=== PATIENT | female | born 1950 | race Caucasian/White ===

== ENCOUNTER 2016-09-26 10:55 | Emergency (ER) | payer MEDICARE, OTHER ==
[~2016-09-26] VITALS: Ht 170.2 cm; Wt 88.5 kg
[~2016-09-26 10:55] MED LIST: AMLO5TAB2 PO; ASPI-983 PO; ATOR10TA66 PO; ATOR20TA66 PO; ATOR80TA76 PO; CEPH500C PO; CHOL10003 PO; CIPR-225 PO; CLOP75TA28 PO; CLOP75TA69 PO; HYDR25TA4 PO; KCL20TCR PO; LOSA100T28 PO; LOSA50TA36 PO; Losartan Potassium PO; MAGN400C PO; METO50TA2 PO; MTF500T PO; NEBI5TAB8 PO; NFNEB10T PO; NIAC-4 PO; POTA10CA43 PO; UBID200C16 PO; UBID200C31 PO; VIT D
[2016-09-26] MEDS ORDERED: APIX5TAB PO (11:58)
[2016-09-26 12:44] LABS: BASOPHILS % (AUTO) 0 % (0-10); EOSINOPHILS # (AUTO) 0.1 10^3/uL (0.0-0.3); EOSINOPHILS % (AUTO) 1 % (0-10); LYMPHOCYTES # (AUTO) 1.5 X 10^3 (1.0-4.0); LYMPHOCYTES % (AUTO) 16 % (12-44); MEAN CORPUSCULAR HEMOGLOBIN 30 PG (25-34); MEAN CORPUSCULAR HGB CONC 33 G/DL (32-36); MEAN CORPUSCULAR VOLUME 90 FL (80-99); MEAN PLATELET VOLUME 9.6 FL (7.4-10.4); MONOCYTES # (AUTO) 1.1 X 10^3 (0.0-1.0); MONOCYTES % (AUTO) 12 % (0-12); NEUTROPHILS # (AUTO) 6.6 X 10^3 (1.8-7.8); NEUTROPHILS % (AUTO) 72 % (42-75); PLATELET COUNT 320 10^3/uL (130-400); RED BLOOD COUNT 4.55 10^6/uL (4.35-5.85); RED CELL DISTRIBUTION WIDTH 12.7 % (10.0-14.5); WHITE BLOOD COUNT 9.2 10^3/uL (4.3-11.0)
[2016-09-26 12:52] LABS: ANION GAP 10 MMOL/L (5-14); BLOOD UREA NITROGEN 11 MG/DL (7-18); BUN/CREATININE RATIO 13; CALCIUM 9.4 MG/DL (8.5-10.1); CARBON DIOXIDE 23 MMOL/L (21-32); CHLORIDE 105 MMOL/L (98-107); CREATININE SERUM 0.83 MG/DL (0.60-1.30); GFR ESTIMATED > 60; GLUCOSE 103 MG/DL (70-105); POTASSIUM 3.7 MMOL/L (3.6-5.0); SODIUM 138 MMOL/L (135-145)
--- NOTE | 2016-09-26 12:59 | Diagnostic Imaging Report ---
INDICATION: Coronary bypass. Hypotensive. Comparison with 05/29/2016. FINDINGS: Median sternotomy changes are now present. There has been increase in cardiac size. Lungs are well aerated. No evidence of pulmonary edema. No consolidated infiltrates. No pleural effusions. IMPRESSION: Postoperative residue with cardiomegaly. Dictated by: Dictated on workstation # [id number]
[2016-09-26 13:00] LABS: BILIRUBIN,URINE NEGATIVE (NEGATIVE); KETONES,URINE NEGATIVE (NEGATIVE); LEUKOCYTE ESTERASE ,URINE NEGATIVE (NEGATIVE); NITRITE,URINE NEGATIVE (NEGATIVE); PH,URINE 6.5 (5-9); PROTEIN,URINE NEGATIVE (NEGATIVE); UROBILINOGEN,URINE NORMAL (NORMAL)
[2016-09-26 13:00] LABS: TROPONIN I < 0.30 NG/ML (<0.30)
--- NOTE | 2016-09-26 13:09 | ED Cardiac General ---
History of Present Illness General Chief Complaint: Cardiac/General Problems Stated Complaint: LOW BLOOD PRESSURE SOA Nursing Triage Note: PT SENT OVER BY CARDIAC REHAB, STATES HYPOTENSIVE AND ELEVATED HR, PT HAS HAD RECENT CABG, R CAROTID JUL. PT DENIES C/P Source: patient, family Exam Limitations: no limitations History of Present Illness Time seen by provider: 12:40 Initial Comments The patient is a 66-year-old white female who was sent here from cardiac rehabilitation. They apparently noted a blood pressure 90/60 range and a pulse of 110 or more all she was on the treadmill. She states that she was asymptomatic. She takes metoprolol. Her recent history involved a stroke last April with a following rehabilitation. She then had a right carotid endarterectomy and cardiac bypass grafting at [facility] in July. She believes that she has been doing reasonably well. She denied any chest pain. She denies any neurologic symptoms. Timing/Duration: 1-3 hours Prior CP/Workup: cardiac cath, other (stroke and bypass grafting) Associated Systoms: Denies Symptoms Allergies and Home Medications Allergies Coded Allergies: No Known Drug Allergies (Unverified , 05/01/14) Home Medications Amlodipine Besylate 5 Mg Tablet, 5 MG PO DAILY, (Reported) Apixaban 5 Mg Tablet, 5 MG PO BID, (Reported) Aspirin 81 Mg Tablet.dr, 81 MG PO DAILY, (Reported) Atorvastatin Calcium 80 Mg Tablet, 80 MG PO HS, (Reported) Cholecalciferol 1,000 Unit Tablet, 2,000 UNIT PO DAILY, (Reported) Clopidogrel Bisulfate 75 Mg Tablet, 75 MG PO DAILY, (Reported) Losartan Potassium 100 Mg Tablet, 100 MG PO DAILY, (Reported) Metoprolol Tartrate 50 Mg Tablet, 75 MG PO BID, (Reported) TAKES 1 & 1/2 (50MG) TABLET Ubidecarenone 200 Mg Capsule, 200 MG PO DAILY, (Reported) Review of Systems Constitutional: see HPI EENTM: No Symptoms Reported Respiratory: No Symptoms Reported Cardiovascular: No Symptoms Reported Gastrointestinal: No Symptoms Reported Genitourinary: No Symptoms Reported Musculoskeletal: no symptoms reported Skin: no symptoms reported Psychiatric/Neurological: No Symptoms Reported Endocrine: No Symptoms Reported Hematologic/Lymphatic: No Symptoms Reported Past [id number]-Qdkcyn-Fugnuq Hx Patient Social History Alcohol Use: Denies Use Recreational Drug Use: No Type Used: Cigarettes 2nd Hand Smoke Exposure: Yes Recent Foreign Travel: No Contact w/Someone Who Travel: No Recent Infectious Disease Expo: No Recent Hopitalizations: No Immunizations Up To Date Tetanus Booster (TDap): More than 5yrs PED Vaccines UTD: No Date of Pneumonia Vaccine: May 03, 2014 Date of Influenza Vaccine: Mar 25, 2016 Seasonal Allergies Seasonal Allergies: No Surgeries HX Surgeries: Yes ( BREAST BIOSPY (Multiple)) Surgeries: Tonsillectomy Respiratory Hx Respiratory Disorders: No Cardiovascular Hx Cardiac Disorders: Yes Cardiac Disorders: Coronary Artery Disease, Heart Attack, High Cholesterol, Hypertension Neurological Hx Neurological Disorders: No Reproductive System Hx Reproductive Disorders: No Sexually Transmitted Disease: No HIV/AIDS: No Female Reproductive Disorders: Denies Genitourinary Hx Genitourinary Disorders: No Gastrointestinal Hx Gastrointestinal Disorders: No Musculoskeletal Hx Musculoskeletal Disorders: No Endocrine Hx Endocrine Disorders: Yes Endocrine Disorders: Diabetes, Non-Insulin dep HEENT HX ENT Disorders: No Loss of Vision: Denies Hearing Impairment: Bilateral Hearing Aide Cancer Hx Cancer: No Psychosocial Hx Psychiatric Problems: No Integumentary HX Skin/Integumentary Disorder: No Blood Transfusions Hx Blood Disorders: No Adverse Reaction to a Blood Tr: No Family Medical History Significant Family History: Heart Disease, Cancer, Hypertension, Stroke, Other Conditions/Hx Family Medial History: Cardiovascular disease 19 FATHER, Onset:Unknown Completed stroke 19 FATHER, Onset:60 years & older Diabetes mellitus 19 FATHER, Onset:50's - 60 Hypertension 19 FATHER, Onset:Unknown Kidney disease G8 BROTHER, Onset: No Family History of: AIDS Abdominal aortic aneurysm Calvert's disease Alcoholism Alzheimer's disease Aphasia Arthritis Asthma Cancer of mouth Cataracts Colon cancer Congenital disease Congenital heart disease Coronary thrombosis Cystic fibrosis Deafness or hearing loss Dementia Drug abuse Dysphasia Fibrocystic disease of breast Gastroenteritis Glaucoma Headache disorder Hypercholesterolemia Infertility Myocardial infarction Neoplasm Not obtainable due to adoption Osteoporosis Parkinson's disease Prostate cancer Psychosocial problem Respiratory disorder Seizure disorder Severe allergy Thyroid disease Tuberculosis Visual disorder Physical Exam Vital Signs Vital Sign - Last 12Hours 09/26/16 11:20 Temp 98.0 Pulse 98 Resp 18 B/P (MAP) 139/80 Pulse Ox 93 Capillary Refill : Less Than 3 Seconds General Appearance: No Apparent Distress, WD/WN HEENT: Normal ENT Inspection Neck: Full Range of Motion, Normal Inspection, Non Tender Respiratory: Decreased Breath Sounds (distant) Cardiovascular: Regular Rate, Rhythm, No Edema, No Gallop, No JVD, No Murmur, Normal Peripheral Pulses Gastrointestinal: Normal Bowel Sounds, No Organomegaly, No Pulsatile Mass, Non Tender Skin: Normal Color, Warm/Dry Lymphatic: No Adenopathy Progress/Results/Core Measures Results/Orders Lab Results Laboratory Tests Test 09/26/16 11:25 09/26/16 12:52 Range/Units White Blood Count 9.2 4.3-11.0 10^3/uL Red Blood Count 4.55 4.35-5.85 10^6/uL Hemoglobin 13.7 11.5-16.0 G/DL Hematocrit 41 35-52 % Mean Corpuscular Volume 90 80-99 FL Mean Corpuscular Hemoglobin 30 25-34 PG Mean Corpuscular Hemoglobin Concent 33 32-36 G/DL Red Cell Distribution Width 12.7 10.0-14.5 % Platelet Count 320 130-400 10^3/uL Mean Platelet Volume 9.6 7.4-10.4 FL Neutrophils (%) (Auto) 72 42-75 % Lymphocytes (%) (Auto) 16 12-44 % Monocytes (%) (Auto) 12 0-12 % Eosinophils (%) (Auto) 1 0-10 % Basophils (%) (Auto) 0 0-10 % Neutrophils # (Auto) 6.6 1.8-7.8 X 10^3 Lymphocytes # (Auto) 1.5 1.0-4.0 X 10^3 Monocytes # (Auto) 1.1 H 0.0-1.0 X 10^3 Eosinophils # (Auto) 0.1 0.0-0.3 10^3/uL Basophils # (Auto) 0.0 0.0-0.1 10^3/uL Sodium Level 138 135-145 MMOL/L Potassium Level 3.7 3.6-5.0 MMOL/L Chloride Level 105 98-107 MMOL/L Carbon Dioxide Level 23 21-32 MMOL/L Anion Gap 10 5-14 MMOL/L Blood Urea Nitrogen 11 7-18 MG/DL Creatinine 0.83 0.60-1.30 MG/DL Estimat Glomerular Filtration Rate > 60 BUN/Creatinine Ratio 13 Glucose Level 103 70-105 MG/DL Calcium Level 9.4 8.5-10.1 MG/DL Troponin I < 0.30 <0.30 NG/ML Urine Color YELLOW Urine Clarity CLEAR Urine pH 6.5 5-9 Urine Specific [place] 1.005 L 1.016-1.022 Urine Protein NEGATIVE NEGATIVE Urine Glucose (UA) NEGATIVE NEGATIVE Urine Ketones NEGATIVE NEGATIVE Urine Nitrite NEGATIVE NEGATIVE Urine Bilirubin NEGATIVE NEGATIVE Urine Urobilinogen NORMAL NORMAL MG/DL Urine Leukocyte Esterase NEGATIVE NEGATIVE Urine RBC (Auto) NEGATIVE NEGATIVE Urine RBC NONE /HPF Urine WBC RARE /HPF Urine Squamous Epithelial Cells 2-5 /HPF Urine Crystals NONE /LPF Urine Bacteria NEGATIVE /HPF Urine Casts NONE /LPF Urine Mucus NEGATIVE /LPF Urine Culture Indicated NO Vital Signs/I&O Vital Sign - Last 12Hours 09/26/16 11:20 Temp 98.0 Pulse 98 Resp 18 B/P (MAP) 139/80 Pulse Ox 93 Blood Pressure Mean: 99 Departure Communication Progress Notes 1358 patient remains stable. She is asymptomatic. The pressure has tended to run in the 90+ over 60+ range while at rest and the pulse less than 100. Discussed these findings with Dr. Fulton who is her [place] physician. We agreed that barring orthostatic hypotension she can be dismissed. Impression Impression: Primary Impression: relative hypotension/suspect beta griselda Disposition: 01 HOME, SELF-CARE Condition: Stable/Unchanged Departure-Patient Inst. Decision time for Depature: 13:57 Referrals: ARTEM FULTON MD (PCP/Family) Primary Care Physician Add. Discharge Instructions: All discharge instructions reviewed with patient and/or family. Voiced understanding. Continue medications as at present. Observe for lightheadedness when changing positions. If further problems contact WILBERT Infante MD Sep 26, 2016 13:09
[2016-09-26 13:27] LABS: WBC,URINE RARE /HPF
[2016-09-26 14:33] VITALS: BP 89/64
== END 2016-09-26 14:33 | disposition home or self-care (01) ==
LOC: EDUNIT# 10:55 → ER 10:57
DX: R03.1 Nonspecific low blood-pressure reading (principal); E11.9 Type 2 diabetes mellitus without complications; I10 Essential (primary) hypertension; Z79.01 Long term (current) use of anticoagulants; Z79.02 Long term (current) use of antithrombotics/antiplatelets; Z79.899 Other long term (current) drug therapy; Z95.1 Presence of aortocoronary bypass graft; Z86.73 Personal history of transient ischemic attack (TIA), and cerebral infarction without residual deficits
CPT/HCPCS: 36415; 71010; 80048; 81000; 84484; 85025; 93005

== ENCOUNTER → 2016-11-25 | Outpatient (CLI) | payer MEDICARE, OTHER ==
[~2016-11-25] MED LIST changes: +APIX5TAB PO
--- NOTE | 2016-11-25 15:48 | Diagnostic Imaging Report ---
PROCEDURE: US Bilateral lower extremity arterial. TECHNIQUE: Multiple real-time grayscale images are obtained through both lower extremity arterial systems with color Doppler imaging and color Doppler spectral analysis. INDICATION: Tingling in the feet. FINDINGS: There is atherosclerotic plaque seen in the femoropopliteal segments on grayscale images. LEFT LOWER EXTREMITY: Monophasic waveforms are seen in the common femoral artery. The profunda femoris is patent. The SFA proximally demonstrates diminished monophasic flow and is occluded in its mid segment for approximately 18 cm. There is recanalization of the distal SFA with diminished monophasic flow and a velocity of 44 cm/s. The popliteal artery is patent with diminished monophasic flow and a velocity of 25 cm/s. The left posterior tibial artery is occluded at its mid segment to the level of the foot. The dorsalis pedis artery is patent with monophasic flow and a velocity of 31 cm/s. RIGHT LOWER EXTREMITY: There is plaque in the femoropopliteal segments seen. The common femoral artery demonstrates normal triphasic flow. The profunda is patent. The SFA is also patent with triphasic waveforms and normal velocities. The popliteal artery demonstrates a minimally diminished velocity of 44 cm/s with preserved triphasic waveforms. The posterior tibial artery is occluded proximally with reconstitution at its distal aspect and associated velocity of 55 cm/s. The dorsalis pedis demonstrates markedly diminished flow with a velocity of 9 cm/s and monophasic waveforms. IMPRESSION: Severe arterial disease. There are occlusions of the left SFA, left posterior tibial, and right posterior tibial arteries. There is evidence of significant disease as well in the right anterior tibial artery. Dictated by: Dictated on workstation # [id number]
== END ==
LOC: RAD 12:46
PROVIDERS: ATTEND Family Medicine
DX: I77.1 Stricture of artery (principal); I25.10 Atherosclerotic heart disease of native coronary artery without angina pectoris; I10 Essential (primary) hypertension; Z72.0 Tobacco use
CPT/HCPCS: 93925

== ENCOUNTER 2016-11-28 10:43 | Outpatient (RCR) | payer MEDICARE, OTHER | END 2016-12-09 | disposition home or self-care (01) | LOC: CR 10:43 | PROVIDERS: ATTEND Internal Medicine Interventional Cardiology | DX: Z48.812 Encounter for surgical aftercare following surgery on the circulatory system (principal); Z95.1 Presence of aortocoronary bypass graft | CPT/HCPCS: 93798 ==

== ENCOUNTER 2017-01-19 11:21 | Outpatient (RCR) | payer MEDICARE, OTHER | END 2017-01-20 11:30 | disposition home or self-care (01) | LOC: CR 11:21 | PROVIDERS: ATTEND Internal Medicine Interventional Cardiology | DX: Z48.812 Encounter for surgical aftercare following surgery on the circulatory system (principal); Z95.1 Presence of aortocoronary bypass graft | CPT/HCPCS: 93798 ==

== ENCOUNTER → 2017-03-30 | Outpatient (CLI) | payer MEDICARE, OTHER | LOC: CARD 10:36 | PROVIDERS: ATTEND Internal Medicine Interventional Cardiology | DX: R06.02 Shortness of breath (principal); I25.10 Atherosclerotic heart disease of native coronary artery without angina pectoris; I10 Essential (primary) hypertension | CPT/HCPCS: 93306 ==

== ENCOUNTER → 2017-04-30 | Outpatient (CLI) | payer MEDICARE, OTHER ==
--- NOTE | 2017-05-01 11:40 | Diagnostic Imaging Report ---
Bilateral screening mammogram 2D views with tomosynthesis The current study was also evaluated with a Computer Aided Detection (CAD) system. INDICATION: Screening. No current complaints stated on the questionnaire. COMPARISON: 06/05/2015. FINDINGS: The breasts are composed of scattered fibroglandular densities. There are scattered benign appearing calcification seen. Allowing for technique and positional differences, no suspicious change is seen. IMPRESSION: No significant change. ACR BI-RADS Category 2: Benign findings. Result letter will be mailed to the patient. Note: At least 10% of breast cancer is not imaged by mammography. Dictated by: Dictated on workstation # [id number]
== END ==
LOC: RAD 09:55
PROVIDERS: ATTEND Family Medicine
DX: Z12.31 Encounter for screening mammogram for malignant neoplasm of breast (principal)
CPT/HCPCS: 77067

== ENCOUNTER → 2017-06-29 | Outpatient (CLI) | payer MEDICARE, OTHER ==
[~2017-06-29] MED LIST changes: +METO50TA15 PO; -METO50TA2 PO
[2017-06-29 10:29] LABS: HEMOGLOBIN 13.9 G/DL (11.5-16.0); MEAN PLATELET VOLUME 8.6 FL (7.4-10.4); RED BLOOD COUNT 4.55 10^6/uL (4.35-5.85); RED CELL DISTRIBUTION WIDTH 13.2 % (10.0-14.5); WHITE BLOOD COUNT 5.1 10^3/uL (4.3-11.0)
[2017-06-29 10:34] LABS: BILIRUBIN,URINE NEGATIVE (NEGATIVE); CLARITY,URINE CLEAR; COLOR,URINE YELLOW; GLUCOSE, URINE (UA) NEGATIVE (NEGATIVE); KETONES,URINE NEGATIVE (NEGATIVE); LEUKOCYTE ESTERASE ,URINE 2+ (NEGATIVE); NITRITE,URINE NEGATIVE (NEGATIVE); PH,URINE 5 (5-9); PROTEIN,URINE NEGATIVE (NEGATIVE); UROBILINOGEN,URINE NORMAL (NORMAL)
[2017-06-29 10:43] LABS: BACTERIA,URINE TRACE /HPF
[2017-06-29 10:55] LABS: ALANINE AMINOTRANSFERASE 18 U/L (0-55); ALBUMIN 3.9 GM/DL (3.2-4.5); ALKALINE PHOSPHATASE 136 U/L (40-136); BILIRUBIN,TOTAL 0.5 MG/DL (0.1-1.0); BUN/CREATININE RATIO 18; CALCIUM 9.2 MG/DL (8.5-10.1); CARBON DIOXIDE 25 MMOL/L (21-32); CHLORIDE 109 MMOL/L (98-107); GFR ESTIMATED > 60; GLUCOSE 81 MG/DL (70-105); POTASSIUM 4.3 MMOL/L (3.6-5.0); SODIUM 142 MMOL/L (135-145); TOTAL PROTEIN 6.8 GM/DL (6.4-8.2)
--- NOTE | 2017-06-29 11:03 | Diagnostic Imaging Report ---
INDICATION: Preop for peripheral vascular disease. Time of exam: 10:59 AM Correlation is made with prior study from 09/26/2016. The heart size is normal. There are changes of median sternotomy. The lungs are clear. No infiltrates are detected. No effusion or pneumothorax is identified. IMPRESSION: No acute cardiopulmonary process is detected. Dictated by: Dictated on workstation # [id number]
== END ==
LOC: CARD 10:00
PROVIDERS: ATTEND Thoracic Surgery (Cardiothoracic Vascular Surgery)
DX: Z01.811 Encounter for preprocedural respiratory examination (principal); Z01.812 Encounter for preprocedural laboratory examination; I70.213 Atherosclerosis of native arteries of extremities with intermittent claudication, bilateral legs; R82.99 Other abnormal findings in urine
CPT/HCPCS: 36415; 71046; 80053; 81000; 85027; 87088

== ENCOUNTER → 2017-07-06 | Outpatient (CLI) | payer MEDICARE, OTHER ==
[2017-07-06 09:53] LABS: BILIRUBIN,URINE NEGATIVE (NEGATIVE); CLARITY,URINE CLEAR; COLOR,URINE YELLOW; GLUCOSE, URINE (UA) NEGATIVE (NEGATIVE); KETONES,URINE NEGATIVE (NEGATIVE); LEUKOCYTE ESTERASE ,URINE NEGATIVE (NEGATIVE); NITRITE,URINE NEGATIVE (NEGATIVE); PH,URINE 6 (5-9); PROTEIN,URINE NEGATIVE (NEGATIVE); UROBILINOGEN,URINE NORMAL (NORMAL)
[2017-07-06 10:01] LABS: BACTERIA,URINE NEGATIVE /HPF; SQUAMOUS EPITHELIAL CELL,UR 0-2 /HPF
== END ==
LOC: LAB 09:35
PROVIDERS: ATTEND Thoracic Surgery (Cardiothoracic Vascular Surgery)
DX: Z01.810 Encounter for preprocedural cardiovascular examination (principal); Z01.818 Encounter for other preprocedural examination; N39.0 Urinary tract infection, site not specified
CPT/HCPCS: 81000

== ENCOUNTER 2017-10-05 15:12 | Outpatient (RCR) | payer MEDICARE, OTHER | END 2017-10-07 | disposition home or self-care (01) | LOC: CR3 15:12 | PROVIDERS: ATTEND Internal Medicine Interventional Cardiology | DX: Z29.8 Encounter for other specified prophylactic measures (principal) ==

== ENCOUNTER → 2017-11-11 | Outpatient (RCR) | payer MEDICARE, OTHER | END | disposition home or self-care (01) | LOC: CR3 10-12 15:00 | PROVIDERS: ATTEND Internal Medicine Interventional Cardiology | DX: Z29.8 Encounter for other specified prophylactic measures (principal) ==

== ENCOUNTER → 2017-11-30 | Outpatient (CLI) | payer MEDICARE, OTHER ==
[~2017-11-30] MED LIST changes: +CALC-823 PO; +CHOL200014 PO; +DOCU-143 PO; +FERR325T5 PO; +GLIM2TAB PO; +METO-333 PO; +OLME40TA18 PO; +RIVA20TA PO
--- NOTE | 2017-11-30 09:27 | Diagnostic Imaging Report ---
PROCEDURE: US Thyroid. TECHNIQUE: Multiple real-time grayscale images were obtained of the thyroid in various projections. INDICATION: Thyroid nodule. COMPARISON: Comparison is made with prior thyroid ultrasound from 05/02/2014. FINDINGS: Right lobe of the thyroid measures 4.7 x 2.2 x 1.7 cm and the left lobe measures 4.3 x 2.7 x 2.9 cm. Multiple nodules are again identified bilaterally. Dominant mixed solid and cystic mass left lobe of thyroid is again seen measuring 2.6 x 2.4 x 2.7 cm. This was previously biopsied with a benign result. This measured previously 1.9 x 2.4 x 1.6 cm. A nodule in the mid upper right lobe measures 1.4 x 1.1 x 1.2 cm. This was approximately 8 mm in diameter on prior exam. A left lower pole thyroid nodule measures 1.4 x 0.8 x 1.1 cm and the nodule lower pole right lobe is approximately 8 mm in diameter. IMPRESSION: Bilateral thyroid nodules. The dominant solid nodules in each lobe of the thyroid have increased since the prior thyroid ultrasound from 05/02/2014. Dictated by: Dictated on workstation # [id number]
== END ==
LOC: RAD 08:20
PROVIDERS: ATTEND Nurse Practitioner Family
DX: E04.2 Nontoxic multinodular goiter (principal)
CPT/HCPCS: 76536

== ENCOUNTER 2017-12-11 17:25 | Outpatient (RCR) | payer MEDICARE, OTHER ==
[~2017-12-11 17:25] MED LIST changes: -CALC-823 PO; -CHOL200014 PO; -DOCU-143 PO; -FERR325T5 PO; -GLIM2TAB PO; -METO-333 PO; -OLME40TA18 PO; -RIVA20TA PO
== END 2017-12-13 | disposition home or self-care (01) ==
LOC: CR3 17:25
PROVIDERS: ATTEND Family Medicine
DX: Z29.8 Encounter for other specified prophylactic measures (principal)

== ENCOUNTER 2018-01-12 05:49 | Outpatient (CLI) | payer MEDICARE, OTHER ==
[~2018-01-12] VITALS: Ht 170.2 cm; Wt 88.5 kg
[2018-01-12] MEDS ORDERED: RIVA20TA PO (16:11)
[2018-01-12] MEDS ORDERED: CHOL200014 PO (16:16)
[2018-01-12] MEDS ORDERED: DOCU-143 PO (16:16)
[2018-01-12] MEDS ORDERED: METO-333 PO (16:16)
[2018-01-12] MEDS ORDERED: OLME40TA18 PO (16:16)
[2018-01-12] MEDS ORDERED: CALC-823 PO (16:26)
[2018-01-12] MEDS ORDERED: FERR325T5 PO (16:26)
[2018-01-12] MEDS ORDERED: GLIM2TAB PO (16:26)
== END 2018-01-12 16:32 | disposition home or self-care (01) ==
LOC: PREOP 05:49
PROVIDERS: ATTEND Surgery
DX: Z01.818 Encounter for other preprocedural examination (principal)

== ENCOUNTER 2018-03-05 10:23 | Outpatient (CLI) | payer MEDICARE, OTHER ==
[~2018-03-05] VITALS: Ht 170.2 cm; Wt 97.3 kg
[~2018-03-05 10:23] MED LIST changes: +ACHD5005 PO; -AMLO5TAB2 PO; +AMLO5TAB7 PO; +CALC-823 PO; +CHOL200085 PO; +DOCU-143 PO; +FERR325T5 PO; +GLIM2TAB PO; +LEVO100T7 PO; -LOSA100T28 PO; +LOSA100T8 PO; -LOSA50TA36 PO; +LOSA50TA7 PO; +METO-333 PO; +OLME40TA18 PO; +ONDA4TAB8 SL; +RIVA20TA PO; +ROSU20TA31 PO
== END 2018-03-05 10:32 | disposition home or self-care (01) ==
LOC: PREOP 10:23
PROVIDERS: ATTEND Surgery
DX: Z01.818 Encounter for other preprocedural examination (principal)

== ENCOUNTER 2018-03-08 10:12 | Day surgery (SDC) | payer MEDICARE, OTHER ==
[~2018-03-08] VITALS: Ht 170.2 cm; Wt 97.3 kg
[2018-03-08 10:25] VITALS: BP 159/86
--- OUTSIDE RECORDS SUMMARY | 2018-03-08 10:43 | XMS REPORT | Continuity of Care Document ---
Author Author [facility] Organization [facility] Address Unknown Phone Unavailable Allergies Active Description Code Type Severity Reaction Onset Reported/Identified Relationship to Patient Clinical Status Yes No Known Drug Allergies [id number] Drug Allergy Unknown N/A 05/01/2014 Medications There is no data. Problems Date Dx Coded Attending Type Code Diagnosis Diagnosed By 04/30/1129 Jenea HARGROVE MD Ot Z48.812 ENCNTR FOR SURGICAL AFTCR FOLLOWING SURG 04/30/1129 Jenae HARGROVE MD Ot Z95.1 PRESENCE OF AORTOCORONARY BYPASS GRAFT 05/01/2014 Ot 611.72 05/01/2014 Ot V72.81 05/01/2014 Ot 793.80 05/01/2014 Ot 793.81 05/01/2014 Ot 793.89 05/01/2014 Ot 610.8 05/01/2014 Ot 611.72 05/01/2014 Ot V15.89 05/01/2014 Ot 787.91 05/01/2014 Ot 610.9 05/01/2014 Ot 793.80 05/01/2014 Ot V76.12 05/01/2014 Ot 610.0 05/01/2014 Ot 793.80 05/01/2014 Ot 610.0 05/01/2014 Ot 793.80 05/01/2014 JULIANO LUCERO [employer] Ot V76.12 05/01/2014 JULIANO LUCERO [employer] Ot 793.89 05/01/2014 JULIANO LUCERO [employer] Ot 793.89 05/03/2014 JEFF JOYNER, ARTEM Mckeon Ot 041.49 05/03/2014 JEFF JOYNER, ARTEM Mckeon Ot 250.00 05/03/2014 JEFF JOYNER, ARTEM Mckeon Ot 272.0 05/03/2014 JEFF JOYNER, ARTEM Mckeon Ot 275.2 05/03/2014 ARTEM AGUILAR MD Ot 276.8 05/03/2014 JEFF JOYNER, ARTEM A Ot 305.1 05/03/2014 JEFF JOYNER, ARTEM A Ot 401.9 05/03/2014 JEFF JOYNER, ARTEM A Ot 599.0 05/03/2014 JEFF JOYNER, ARTEM A Ot 733.90 05/03/2014 JEFF JOYNER, ARTEM A Ot 041.49 05/03/2014 JEFF JOYNER, ARTEM A Ot 250.00 05/03/2014 JEFF JOYNER, ARTEM A Ot 272.0 05/03/2014 JEFF JOYNER, ARTEM A Ot 275.2 05/03/2014 JEFF JOYNER, ARTEM A Ot 276.8 05/03/2014 JEFF JOYNER, ARTEM A Ot 305.1 05/03/2014 JEFF JOYNER, ARTEM A Ot 401.9 05/03/2014 JEFF JOYNER, ARTEM A Ot 599.0 05/03/2014 JEFF JOYNER, ARTEM A Ot 733.90 05/04/2014 JEFF JOYNER, ARTEM A Ot 041.49 05/04/2014 JEFF JOYNER, ARTEM A Ot 250.00 05/04/2014 JEFF JOYNER, ARTEM A Ot 272.0 05/04/2014 JEFF JOYNER, ARTEM A Ot 275.2 05/04/2014 JEFF JOYNER, ARTEM A Ot 276.8 05/04/2014 JEFF JOYNER, ARTEM A Ot 305.1 05/04/2014 JEFF JOYNER, ARTEM A Ot 401.9 05/04/2014 JEFF JOYNER, ARTEM A Ot 599.0 05/04/2014 JEFF JOYNER, ARTEM A Ot 733.90 05/05/2014 JEFF JOYNER, ARTEM A Ot 041.49 05/05/2014 JEFF JOYNER, ARTEM A Ot 250.00 05/05/2014 JEFF JOYNER, ARTEM A Ot 272.0 05/05/2014 JEFF JOYNER, ARTEM A Ot 275.2 05/05/2014 JEFF JOYNER, ARTEM A Ot 276.8 05/05/2014 JEFF JOYNER, ARTEM A Ot 305.1 05/05/2014 JEFF JOYNER, ARTEM A Ot 401.9 05/05/2014 JEFF JOYNER, ARTEM A Ot 599.0 05/05/2014 JEFF JOYNER, ARTEM A Ot 733.90 05/05/2014 Ot 611.72 05/05/2014 Ot V72.81 05/05/2014 Ot 793.80 05/05/2014 Ot 793.81 05/05/2014 Ot 793.89 05/05/2014 Ot 610.8 05/05/2014 Ot 611.72 05/05/2014 Ot V15.89 05/05/2014 Ot 787.91 05/05/2014 Ot 610.9 05/05/2014 Ot 793.80 05/05/2014 Ot V76.12 05/05/2014 Ot 610.0 05/05/2014 Ot 793.80 05/05/2014 Ot 610.0 05/05/2014 Ot 793.80 05/05/2014 JULIANO LUCERO [employer] Ot V76.12 05/05/2014 JULIANO LUCERO [employer] Ot 793.89 05/05/2014 JULIANO LUCERO [employer] Ot 793.89 05/05/2014 JEFF JOYNER, ARTEM Mckeon Ot 041.49 05/05/2014 JEFF JOYNER, ARTEM A Ot 250.00 05/05/2014 JEFF JOYNER, ARTEM A Ot 272.0 05/05/2014 JEFF JOYNER, ARTEM A Ot 275.2 05/05/2014 JEFF JOYNER, ARTEM A Ot 276.8 05/05/2014 JEFF JOYNER, ARTEM A Ot 305.1 05/05/2014 JEFF JOYNER, ARTEM A Ot 401.9 05/05/2014 JEFF JOYNER, ARTEM A Ot 599.0 05/05/2014 JEFF JOYNER, ARTEM A Ot 733.90 05/05/2014 JEFF JOYNER, ARTEM Mckeon Ot 041.49 05/05/2014 JEFF JOYNER, ARTEM A Ot 250.00 05/05/2014 JEFF JOYNER, ARTEM A Ot 272.0 05/05/2014 JEFF JOYNER, ARTEM A Ot 275.2 05/05/2014 JEFF JOYNER, ARTEM A Ot 276.8 05/05/2014 JEFF JOYNER, ARTEM A Ot 305.1 05/05/2014 JEFF JOYNER, ARTEM A Ot 401.9 05/05/2014 JEFF JOYNER, ARTEM A Ot 599.0 05/05/2014 JEFF JOYNER, ARTEM A Ot 733.90 05/05/2014 JEFF JOYNER, ARTEM Mckeon Ot 041.49 05/05/2014 JEFF JOYNER, ARTEM Mckeon Ot 250.00 05/05/2014 JEFF JOYNER, ARTEM Mckeon Ot 272.0 05/05/2014 JEFF JOYNER, ARTEM Mcekon Ot 275.2 05/05/2014 ARTEM AGUILAR MD Ot 276.8 05/05/2014 JEFF JOYNER, ARTEM Mckeon Ot 305.1 05/05/2014 ARTEM AGUILAR MD Ot 401.9 05/05/2014 ARTEM AGUILAR MD Ot 599.0 05/05/2014 JEFF JOYNER, ARTEM Mckeon Ot 733.90 05/05/2014 ARTEM AGUILAR MD Ot 041.49 05/05/2014 ARTEM AGUILAR MD Ot 250.00 05/05/2014 ARTEM AGUILAR MD Ot 272.0 05/05/2014 ARTEM AGUILAR MD Ot 275.2 05/05/2014 ARTEM AGUILAR MD Ot 276.8 05/05/2014 ARTEM AGUILAR MD Ot 305.1 05/05/2014 ARTEM AGUILAR MD Ot 401.9 05/05/2014 ARTEM AGUILAR MD Ot 599.0 05/05/2014 ARTEM AGUILAR MD Ot 733.90 05/05/2014 ARTEM AGUILAR MD Ot 041.49 OTHER AND UNSPECIFIED ESCHERICHIA COLI [ 05/05/2014 ARTEM AGUILAR MD Ot 241.1 NONTOX MULTINODUL GOITER 05/05/2014 ARTEM AGUILAR MD Ot 250.00 DIAB ACACIA WO COMPL, TYPE II OR UNSPEC TY 05/05/2014 ARTEM AGUILAR MD Ot 272.0 PURE HYPERCHOLESTEROLEM 05/05/2014 ARTEM AGUILAR MD Ot 275.2 DIS MAGNESIUM METABOLISM 05/05/2014 ARTEM AGUILAR MD Ot 276.8 HYPOPOTASSEMIA 05/05/2014 ARTEM AGUILAR MD Ot 305.1 TOBACCO USE DISORDER 05/05/2014 ARTEM AGUILAR MD Ot 401.9 HYPERTENSION NOS 05/05/2014 ARTEM AGUILAR MD Ot 599.0 URIN TRACT INFECTION NOS 05/05/2014 ARTEM AGUILAR MD Ot 728.85 SPASM OF MUSCLE 05/05/2014 JEFF JOYNER, ARTEM Mckeon Ot 733.90 BONE CARTILAGE DIS NOS 05/05/2014 JEFF JOYNER, ARTEM Mckeon Ot 787.91 DIARRHEA 05/08/2014 JULIANO LUCERO [employer] Ot 793.89 05/11/2014 Ot 611.72 05/11/2014 Ot V72.81 05/11/2014 Ot 793.80 05/11/2014 Ot 793.81 05/11/2014 Ot 793.89 05/11/2014 Ot 610.8 05/11/2014 Ot 611.72 05/11/2014 Ot V15.89 05/11/2014 Ot 787.91 05/11/2014 Ot 610.9 05/11/2014 Ot 793.80 05/11/2014 Ot V76.12 05/11/2014 Ot 610.0 05/11/2014 Ot 793.80 05/11/2014 Ot 610.0 05/11/2014 Ot 793.80 05/11/2014 JULIANO LUCERO [employer] Ot V76.12 05/11/2014 JULIANO LUCERO [facility] Ot 793.89 05/11/2014 JULIANO LUCERO [facility] Ot 793.89 05/11/2014 JEFF JOYNER, ARTEM Mckeon Ot 242.90 05/11/2014 JEFF JOYNER, ARTEM Mckeon Ot 250.00 05/11/2014 ARTEM AGUILAR MD Ot 275.2 05/11/2014 ARTEM AGUILAR MD Ot 276.8 05/11/2014 ARTEM AGUILAR MD Ot 599.0 05/11/2014 ARTEM AGUILAR MD Ot 728.88 05/11/2014 WILBERT MERIDA MD Ot 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 05/11/2014 IWLBERT MERIDA MD Ot 722.4 CERVICAL DISC DEGEN 05/11/2014 WILBERT MERIDA MD Ot 782.0 SKIN SENSATION DISTURB 06/06/2014 Ot 611.72 06/06/2014 Ot V72.81 06/06/2014 Ot 793.80 06/06/2014 Ot 793.81 06/06/2014 Ot 793.89 06/06/2014 Ot 610.8 06/06/2014 Ot 611.72 06/06/2014 Ot V15.89 06/06/2014 Ot 787.91 06/06/2014 Ot 610.9 06/06/2014 Ot 793.80 06/06/2014 Ot V76.12 06/06/2014 Ot 610.0 06/06/2014 Ot 793.80 06/06/2014 Ot 610.0 06/06/2014 Ot 793.80 06/06/2014 JULIANO LUCERO [employer] Ot V76.12 06/06/2014 JULIANO LUCERO [employer] Ot 793.89 06/06/2014 JULIANO LUCERO [employer] Ot 793.89 06/06/2014 JEFF JOYNER, ARTEM A Ot 242.90 06/06/2014 JEFF JOYNER, ARTEM A Ot 250.00 06/06/2014 JEFF JOYNER, ARTEM A Ot 275.2 06/06/2014 JEFF JOYNER, ARTEM A Ot 276.8 06/06/2014 JEFF JOYNER, ARTEM Mckeon Ot 599.0 06/06/2014 JEFF JOYNER, ARTEM Mckeon Ot 728.88 10/12/2014 Ot 793.80 10/12/2014 Ot 793.81 10/12/2014 Ot 793.89 10/12/2014 Ot 610.8 10/12/2014 Ot 611.72 10/12/2014 Ot V15.89 10/12/2014 Ot 787.91 10/12/2014 Ot 610.9 10/12/2014 Ot 793.80 10/12/2014 Ot V76.12 10/12/2014 Ot 610.0 10/12/2014 Ot 793.80 10/12/2014 Ot 610.0 10/12/2014 Ot 793.80 10/12/2014 JULIANO LUCERO [employer] Ot V76.12 10/12/2014 JULIANO LUCERO [employer] Ot 793.89 10/12/2014 JULIANO LUCERO [employer] Ot 793.89 10/12/2014 JEFF JOYNER, ARTEM A Ot 242.90 10/12/2014 JEFF JOYNER, ARTEM A Ot 250.00 10/12/2014 JEFF JOYNER, ARTEM A Ot 275.2 10/12/2014 JEFF JOYNER, ARTEM A Ot 276.8 10/12/2014 JEFF JOYNER, ARTEM Mckeon Ot 599.0 10/12/2014 JEFF JOYNER, ARTEM A Ot 728.88 10/12/2014 JULIANO LUCERO [employer] Ot 241.0 10/13/2014 JEFF JOYNER, ARTEM Mckeon Ot 733.90 10/14/2014 JEFF JOYNER, ARTEM Mckeon Ot 733.90 11/26/2014 JEFF JOYNER, ARTEM Mckeon Ot 733.90 06/05/2015 Ot 793.81 06/05/2015 Ot 793.89 06/05/2015 Ot 610.8 06/05/2015 Ot 611.72 06/05/2015 Ot V15.89 06/05/2015 Ot 787.91 06/05/2015 Ot 610.9 06/05/2015 Ot 793.80 06/05/2015 Ot V76.12 06/05/2015 Ot 610.0 06/05/2015 Ot 793.80 06/05/2015 Ot 610.0 06/05/2015 Ot 793.80 06/05/2015 JULIANO LUCERO [employer] Ot V76.12 06/05/2015 JULIANO LUCERO [employer] Ot 793.89 06/05/2015 JULIANO LUCERO [employer] Ot 793.89 06/05/2015 JEFF JOYNER, ARTEM A Ot 242.90 06/05/2015 JEFF JOYNER, ARTEM A Ot 250.00 06/05/2015 JEFF JOYNER, ARTEM A Ot 275.2 06/05/2015 JEFF JOYNER, ARTEM A Ot 276.8 06/05/2015 JEFF JOYNER, ARTEM A Ot 599.0 06/05/2015 JEFF JOYNER, ARTEM A Ot 728.88 06/05/2015 JULIANO LUCERO [employer] Ot 241.0 06/05/2015 JEFF JOYNER, ARTEM A Ot 733.90 06/05/2015 JEFF JOYNER, ARTEM A Ot 203.00 06/05/2015 JEFF JOYNER, ARTEM A Ot 733.90 05/04/2016 Ot 793.89 OTH (ABN) FINDINGS ON RADIOLOGICAL EXAMI 05/04/2016 Ot 610.8 BENIGN MAMM DYSPLAS NEC 05/04/2016 Ot 611.72 LUMP OR MASS IN BREAST 05/04/2016 Ot V15.89 HX-HEALTH HAZARDS NEC 05/04/2016 Ot 787.91 DIARRHEA 05/04/2016 Ot 610.9 BENIGN MAMM DYSPLAS NOS 05/04/2016 Ot 793.80 UNSPEC ABNORMAL MAMMOGRAM 05/04/2016 Ot V76.12 OTH SCREEN MAMMO-MALIGN NEOPLASM OF OLIVIA 05/04/2016 Ot 610.0 SOLITARY CYST OF BREAST 05/04/2016 Ot 793.80 UNSPEC ABNORMAL MAMMOGRAM 05/04/2016 Ot 610.0 SOLITARY CYST OF BREAST 05/04/2016 Ot 793.80 UNSPEC ABNORMAL MAMMOGRAM 05/04/2016 JULIANO LUCERO [facility] Ot V76.12 OTH SCREEN MAMMO-MALIGN NEOPLASM OF OLIVIA 05/04/2016 JULIANO LUCERO [facility] Ot 793.89 OTH (ABN) FINDINGS ON RADIOLOGICAL EXAMI 05/04/2016 JULIANO LUCERO [facility] Ot 793.89 OTH (ABN) FINDINGS ON RADIOLOGICAL EXAMI 05/04/2016 ARTEM AGUILAR MD Ot 242.90 THYROTOX NOS NO CRISIS 05/04/2016 ARTEM AGUILAR MD Ot 250.00 DIAB ACACIA WO COMPL, TYPE II OR UNSPEC TY 05/04/2016 ARTEM AGUILAR MD Ot 275.2 DIS MAGNESIUM METABOLISM 05/04/2016 ARTEM AGUILAR MD Ot 276.8 HYPOPOTASSEMIA 05/04/2016 ARTEM AGUILAR MD Ot 599.0 URIN TRACT INFECTION NOS 05/04/2016 ARTEM AGUILAR MD Ot 728.88 RHABDOMYOLYSIS 05/04/2016 JULIANO LUCEROP Ot 241.0 NONTOX UNINODULAR GOITER 05/04/2016 ARTEM AGUILAR MD Ot 733.90 BONE CARTILAGE DIS NOS 05/04/2016 ARTEM AGUILAR MD Ot 203.00 MULTIPLE MYELOMA, W/O MENTION OF HAVING 05/04/2016 ARTEM AGUILAR MD Ot 733.90 BONE CARTILAGE DIS NOS 05/04/2016 ARTEM AGUILAR MD Ot Z12.31 ENCNTR SCREEN MAMMOGRAM FOR MALIGNANT NE 05/04/2016 Ot 793.89 OTH (ABN) FINDINGS ON RADIOLOGICAL EXAMI 05/04/2016 Ot 610.8 BENIGN MAMM DYSPLAS NEC 05/04/2016 Ot 611.72 LUMP OR MASS IN BREAST 05/04/2016 Ot V15.89 HX-HEALTH HAZARDS NEC 05/04/2016 Ot 787.91 DIARRHEA 05/04/2016 Ot 610.9 BENIGN MAMM DYSPLAS NOS 05/04/2016 Ot 793.80 UNSPEC ABNORMAL MAMMOGRAM 05/04/2016 Ot V76.12 OTH SCREEN MAMMO-MALIGN NEOPLASM OF OLIVIA 05/04/2016 Ot 610.0 SOLITARY CYST OF BREAST 05/04/2016 Ot 793.80 UNSPEC ABNORMAL MAMMOGRAM 05/04/2016 Ot 610.0 SOLITARY CYST OF BREAST 05/04/2016 Ot 793.80 UNSPEC ABNORMAL MAMMOGRAM 05/04/2016 JULIANO LUCERO [facility] Ot V76.12 OTH SCREEN MAMMO-MALIGN NEOPLASM OF OLIVIA 05/04/2016 JULIANO LUCERO [facility] Ot 793.89 OTH (ABN) FINDINGS ON RADIOLOGICAL EXAMI 05/04/2016 JULIANO LUCERO Ot 793.89 OTH (ABN) FINDINGS ON RADIOLOGICAL EXAMI 05/04/2016 ARTEM AGUILAR MD Ot 242.90 THYROTOX NOS NO CRISIS 05/04/2016 ARTEM AGUILAR MD Ot 250.00 DIAB ACACIA WO COMPL, TYPE II OR UNSPEC TY 05/04/2016 ARTEM AGUILAR MD Ot 275.2 DIS MAGNESIUM METABOLISM 05/04/2016 ARTEM AGUILAR MD Ot 276.8 HYPOPOTASSEMIA 05/04/2016 ARTEM AGUILAR MD Ot 599.0 URIN TRACT INFECTION NOS 05/04/2016 ARTEM AGUILAR MD Ot 728.88 RHABDOMYOLYSIS 05/04/2016 JULIANO LUCERO Ot 241.0 NONTOX UNINODULAR GOITER 05/04/2016 ARTEM AGUILAR MD Ot 733.90 BONE CARTILAGE DIS NOS 05/04/2016 ARTEM AGUILAR MD Ot 203.00 MULTIPLE MYELOMA, W/O MENTION OF HAVING 05/04/2016 ARTEM AGUILAR MD Ot 733.90 BONE CARTILAGE DIS NOS 05/04/2016 ARTEM AGUILAR MD Ot Z12.31 ENCNTR SCREEN MAMMOGRAM FOR MALIGNANT NE 05/04/2016 Ot 793.89 OTH (ABN) FINDINGS ON RADIOLOGICAL EXAMI 05/04/2016 Ot 610.8 BENIGN MAMM DYSPLAS NEC 05/04/2016 Ot 611.72 LUMP OR MASS IN BREAST 05/04/2016 Ot V15.89 HX-HEALTH HAZARDS NEC 05/04/2016 Ot 787.91 DIARRHEA 05/04/2016 Ot 610.9 BENIGN MAMM DYSPLAS NOS 05/04/2016 Ot 793.80 UNSPEC ABNORMAL MAMMOGRAM 05/04/2016 Ot V76.12 OTH SCREEN MAMMO-MALIGN NEOPLASM OF OLIVIA 05/04/2016 Ot 610.0 SOLITARY CYST OF BREAST 05/04/2016 Ot 793.80 UNSPEC ABNORMAL MAMMOGRAM 05/04/2016 Ot 610.0 SOLITARY CYST OF BREAST 05/04/2016 Ot 793.80 UNSPEC ABNORMAL MAMMOGRAM 05/04/2016 JULIANO LUCERO [facility] Ot V76.12 OTH SCREEN MAMMO-MALIGN NEOPLASM OF OLIVIA 05/04/2016 JULIANO LUCERO [facility] Ot 793.89 OTH (ABN) FINDINGS ON RADIOLOGICAL EXAMI 05/04/2016 JULIANO LUCERO [facility] Ot 793.89 OTH (ABN) FINDINGS ON RADIOLOGICAL EXAMI 05/04/2016 ARTEM AGUILAR MD Ot 242.90 THYROTOX NOS NO CRISIS 05/04/2016 ARTEM AGUILAR MD Ot 250.00 DIAB ACACIA WO COMPL, TYPE II OR UNSPEC TY 05/04/2016 ARTEM AGUILAR MD Ot 275.2 DIS MAGNESIUM METABOLISM 05/04/2016 ARTEM AGUILAR MD Ot 276.8 HYPOPOTASSEMIA 05/04/2016 ARTEM AGUILAR MD Ot 599.0 URIN TRACT INFECTION NOS 05/04/2016 ARTEM AGUILAR MD Ot 728.88 RHABDOMYOLYSIS 05/04/2016 JULIANO LUCERO Ot 241.0 NONTOX UNINODULAR GOITER 05/04/2016 ARTEM AGUILAR MD Ot 733.90 BONE CARTILAGE DIS NOS 05/04/2016 ARTEM AGUILAR MD Ot 203.00 MULTIPLE MYELOMA, W/O MENTION OF HAVING 05/04/2016 ARTEM AGUILAR MD Ot 733.90 BONE CARTILAGE DIS NOS 05/04/2016 ARTEM AGUILAR MD Ot Z12.31 ENCNTR SCREEN MAMMOGRAM FOR MALIGNANT NE 05/05/2016 ARTEM AGUILAR MD Ot E11.9 TYPE 2 DIABETES MELLITUS WITHOUT COMPLIC 05/05/2016 ARTEM AGUILAR MD Ot E78.00 PURE HYPERCHOLESTEROLEMIA, UNSPECIFIED 05/05/2016 ARTEM AGUILAR MD Ot F17.210 NICOTINE DEPENDENCE, CIGARETTES, UNCOMPL 05/05/2016 ARTEM AGUILAR MD Ot I10 ESSENTIAL (PRIMARY) HYPERTENSION 05/05/2016 ARTEM AGUILAR MD Ot 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 05/05/2016 ARTEM AGUILAR MD Ot N39.0 URINARY TRACT INFECTION, SITE NOT SPECIF 05/05/2016 ARTEM AGUILAR MD Ot R06.02 SHORTNESS OF BREATH 05/05/2016 ARTEM AGUILAR MD Ot R29.898 OTH SYMPTOMS AND SIGNS INVOLVING THE MUS 05/05/2016 ARTEM AGUILAR MD Ot Z82.0 FAMILY HISTORY OF EPILEPSY AND OTH DIS O 05/06/2016 ARTEM AGUILAR MD Ot E11.9 TYPE 2 DIABETES MELLITUS WITHOUT COMPLIC 05/06/2016 ARTEM AGUILAR MD Ot E78.00 PURE HYPERCHOLESTEROLEMIA, UNSPECIFIED 05/06/2016 ARTEM AGUILAR MD Ot F17.210 NICOTINE DEPENDENCE, CIGARETTES, UNCOMPL 05/06/2016 ARTEM AGUILAR MD Ot I10 ESSENTIAL (PRIMARY) HYPERTENSION 05/06/2016 ARTEM AGUILAR MD Ot 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 05/06/2016 ARTEM AGUILAR MD Ot N39.0 URINARY TRACT INFECTION, SITE NOT SPECIF 05/06/2016 ARTEM AGUILAR MD Ot R06.02 SHORTNESS OF BREATH 05/06/2016 ARTEM AGUILAR MD Ot R29.898 OTH SYMPTOMS AND SIGNS INVOLVING THE MUS 05/06/2016 ARTEM AGUILAR MD Ot Z82.0 FAMILY HISTORY OF EPILEPSY AND OTH DIS O 05/06/2016 ARTEM AGUILAR MD Ot E11.9 TYPE 2 DIABETES MELLITUS WITHOUT COMPLIC 05/06/2016 ARTEM AGUILAR MD Ot E78.00 PURE HYPERCHOLESTEROLEMIA, UNSPECIFIED 05/06/2016 ARTEM AGUILAR MD Ot F17.210 NICOTINE DEPENDENCE, CIGARETTES, UNCOMPL 05/06/2016 ARTEM AGUILAR MD Ot I10 ESSENTIAL (PRIMARY) HYPERTENSION 05/06/2016 ARTEM AGUILAR MD Ot 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 05/06/2016 ARTEM AGUILAR MD Ot N39.0 URINARY TRACT INFECTION, SITE NOT SPECIF 05/06/2016 ARTEM AGUILAR MD Ot R06.02 SHORTNESS OF BREATH 05/06/2016 ARTEM AGUILAR MD Ot R29.898 OTH SYMPTOMS AND SIGNS INVOLVING THE MUS 05/06/2016 ARTEM AGUILAR MD Ot Z82.0 FAMILY HISTORY OF EPILEPSY AND OTH DIS O 05/06/2016 ARTEM AGUILAR MD Ot E11.9 TYPE 2 DIABETES MELLITUS WITHOUT COMPLIC 05/06/2016 ARTEM AGUILAR MD Ot E78.00 PURE HYPERCHOLESTEROLEMIA, UNSPECIFIED 05/06/2016 ARTEM AGUILAR MD Ot F17.210 NICOTINE DEPENDENCE, CIGARETTES, UNCOMPL 05/06/2016 ARTEM AGUILAR MD Ot I10 ESSENTIAL (PRIMARY) HYPERTENSION 05/06/2016 ARTEM AGUILAR MD Ot 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 05/06/2016 ARTEM AGUILAR MD Ot N39.0 URINARY TRACT INFECTION, SITE NOT SPECIF 05/06/2016 ARTEM AGUILAR MD Ot R06.02 SHORTNESS OF BREATH 05/06/2016 ARTEM AGUILAR MD Ot R29.898 OTH SYMPTOMS AND SIGNS INVOLVING THE MUS 05/06/2016 ARTEM AGUILAR MD Ot Z82.0 FAMILY HISTORY OF EPILEPSY AND OTH DIS O 05/06/2016 ARTEM AGUILAR MD Ot E11.9 TYPE 2 DIABETES MELLITUS WITHOUT COMPLIC 05/06/2016 ARTEM AGUILAR MD Ot E78.00 PURE HYPERCHOLESTEROLEMIA, UNSPECIFIED 05/06/2016 ARTEM AGUILAR MD Ot F17.210 NICOTINE DEPENDENCE, CIGARETTES, UNCOMPL 05/06/2016 ARTEM AGUILAR MD Ot I10 ESSENTIAL (PRIMARY) HYPERTENSION 05/06/2016 ARTEM AGUILAR MD Ot 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 05/06/2016 ARTEM AGUILAR MD Ot N39.0 URINARY TRACT INFECTION, SITE NOT SPECIF 05/06/2016 ARTEM AGUILAR MD Ot R06.02 SHORTNESS OF BREATH 05/06/2016 ARTEM AGUILAR MD Ot R29.898 OTH SYMPTOMS AND SIGNS INVOLVING THE MUS 05/06/2016 ARTEM AGUILAR MD Ot Z82.0 FAMILY HISTORY OF EPILEPSY AND OTH DIS O 05/06/2016 ARTEM AGUILAR MD Ot E11.9 TYPE 2 DIABETES MELLITUS WITHOUT COMPLIC 05/06/2016 ARTEM AGUILAR MD Ot E78.00 PURE HYPERCHOLESTEROLEMIA, UNSPECIFIED 05/06/2016 ARTEM AGUILAR MD Ot F17.210 NICOTINE DEPENDENCE, CIGARETTES, UNCOMPL 05/06/2016 ARTEM AGUILAR MD Ot I10 ESSENTIAL (PRIMARY) HYPERTENSION 05/06/2016 ARTEM AGUILAR MD Ot 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 05/06/2016 ARTEM AGUILAR MD Ot N39.0 URINARY TRACT INFECTION, SITE NOT SPECIF 05/06/2016 ARTEM AGUILAR MD Ot R06.02 SHORTNESS OF BREATH 05/06/2016 ARTEM AGUILAR MD Ot R29.898 OTH SYMPTOMS AND SIGNS INVOLVING THE MUS 05/06/2016 ARTEM AGUILAR MD Ot Z82.0 FAMILY HISTORY OF EPILEPSY AND OTH DIS O 05/07/2016 ARTEM AGUILAR MD Ot E11.9 TYPE 2 DIABETES MELLITUS WITHOUT COMPLIC 05/07/2016 ARTEM AGUILAR MD Ot E78.00 PURE HYPERCHOLESTEROLEMIA, UNSPECIFIED 05/07/2016 ARTEM AGUILAR MD Ot F17.210 NICOTINE DEPENDENCE, CIGARETTES, UNCOMPL 05/07/2016 ARTEM AGUILAR MD Ot I10 ESSENTIAL (PRIMARY) HYPERTENSION 05/07/2016 ARTEM AGUILAR MD Ot 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 05/07/2016 ARTEM AGUILAR MD Ot N39.0 URINARY TRACT INFECTION, SITE NOT SPECIF 05/07/2016 ARTEM AGUILAR MD Ot R06.02 SHORTNESS OF BREATH 05/07/2016 ARTEM AGUILAR MD Ot R29.898 OTH SYMPTOMS AND SIGNS INVOLVING THE MUS 05/07/2016 ARTEM AGUILAR MD Ot Z82.0 FAMILY HISTORY OF EPILEPSY AND OTH DIS O 05/07/2016 ARTEM AGUILAR MD Ot E11.9 TYPE 2 DIABETES MELLITUS WITHOUT COMPLIC 05/07/2016 ARTEM AGUILAR MD Ot E78.00 PURE HYPERCHOLESTEROLEMIA, UNSPECIFIED 05/07/2016 ARTEM AGUILAR MD Ot F17.210 NICOTINE DEPENDENCE, CIGARETTES, UNCOMPL 05/07/2016 ARTEM AGUILAR MD Ot I10 ESSENTIAL (PRIMARY) HYPERTENSION 05/07/2016 ARTEM AGUILAR MD Ot 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 05/07/2016 ARTEM AGUILAR MD Ot N39.0 URINARY TRACT INFECTION, SITE NOT SPECIF 05/07/2016 ARTEM AGUILAR MD Ot R06.02 SHORTNESS OF BREATH 05/07/2016 ARTEM AGUILAR MD Ot R29.898 OTH SYMPTOMS AND SIGNS INVOLVING THE MUS 05/07/2016 ARTEM AGUILAR MD Ot Z82.0 FAMILY HISTORY OF EPILEPSY AND OTH DIS O 05/07/2016 ARTEM AGUILAR MD Ot E11.9 TYPE 2 DIABETES MELLITUS WITHOUT COMPLIC 05/07/2016 ARTEM AGUILAR MD Ot E78.00 PURE HYPERCHOLESTEROLEMIA, UNSPECIFIED 05/07/2016 ARTEM AGUILAR MD Ot F17.210 NICOTINE DEPENDENCE, CIGARETTES, UNCOMPL 05/07/2016 ARTEM AGUILAR MD Ot I10 ESSENTIAL (PRIMARY) HYPERTENSION 05/07/2016 ARTEM AGUILAR MD Ot 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 05/07/2016 ARTEM AGUILAR MD Ot N39.0 URINARY TRACT INFECTION, SITE NOT SPECIF 05/07/2016 ARTEM AGUILAR MD Ot R06.02 SHORTNESS OF BREATH 05/07/2016 ARTEM AGUILAR MD Ot R29.898 OTH SYMPTOMS AND SIGNS INVOLVING THE MUS 05/07/2016 ARTEM AGUILAR MD Ot Z82.0 FAMILY HISTORY OF EPILEPSY AND OTH DIS O 05/29/2016 Jenae HARGROVE MD Ot E78.5 HYPERLIPIDEMIA, UNSPECIFIED 05/29/2016 Jenae HARGROVE MD Ot I10 ESSENTIAL (PRIMARY) HYPERTENSION 05/29/2016 Jenae HARGROVE MD Ot I25.10 ATHSCL HEART DISEASE OF [place] CORONARY 05/29/2016 Jenae HARGROVE MD Ot 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 05/29/2016 Jenae HARGROVE MD Ot I63.9 CEREBRAL INFARCTION, UNSPECIFIED 05/29/2016 Jenae HARGROVE MD Ot I65.29 OCCLUSION AND STENOSIS OF UNSPECIFIED CA 05/29/2016 Jenae HARGROVE MD Ot R06.02 SHORTNESS OF BREATH 05/29/2016 Jenae HARGROVE MD Ot R94.39 ABNORMAL RESULT OF OTHER CARDIOVASCULAR 05/29/2016 Jenae HARGROVE MD Ot Z53.09 PROC/TRTMT NOT CARRIED OUT BECAUSE OF CO 05/29/2016 Jenae HARGROVE MD Ot Z79.02 PROCEDURAL NURSE (CURRENT) USE OF ANTITHROMBOTI 05/29/2016 Jenae HARGROVE MD Ot Z79.899 OTHER ALF (CURRENT) DRUG THERAPY 05/29/2016 Jenae HARGROVE MD Ot Z87.891 PERSONAL HISTORY OF NICOTINE DEPENDENCE 06/12/2016 Jenae HARGROVE MD Ot E78.5 HYPERLIPIDEMIA, UNSPECIFIED 06/12/2016 Jenae HARGROVE MD Ot I10 ESSENTIAL (PRIMARY) HYPERTENSION 06/12/2016 Jenae HARGROVE MD Ot I25.10 ATHSCL HEART DISEASE OF [place] CORONARY 06/12/2016 Jenae HARGROVE MD Ot 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 06/12/2016 Jenae HARGROVE MD Ot I63.9 CEREBRAL INFARCTION, UNSPECIFIED 06/12/2016 Jenae HARGROVE MD Ot I65.29 OCCLUSION AND STENOSIS OF UNSPECIFIED CA 06/12/2016 Jenae HARGROVE MD Ot R06.02 SHORTNESS OF BREATH 06/12/2016 Jenae HARGROVE MD Ot R94.39 ABNORMAL RESULT OF OTHER CARDIOVASCULAR 06/12/2016 Jenae HARGROVE MD Ot Z53.09 PROC/TRTMT NOT CARRIED OUT BECAUSE OF CO 06/12/2016 Jenae HARGROVE MD Ot Z79.02 ALF (CURRENT) USE OF ANTITHROMBOTI 06/12/2016 Jenae HARGROVE MD Ot Z79.899 OTHER PROCEDURAL NURSE (CURRENT) DRUG THERAPY 06/12/2016 Jenae HARGROVE MD, Ot Z87.891 PERSONAL HISTORY OF NICOTINE DEPENDENCE 06/14/2016 Jenae HARGROVE MD Ot E78.5 HYPERLIPIDEMIA, UNSPECIFIED 06/14/2016 Jenae HARGROVE MD Ot I10 ESSENTIAL (PRIMARY) HYPERTENSION 06/14/2016 Jenae HARGROVE MD, Ot I25.10 ATHSCL HEART DISEASE OF [place] CORONARY 06/14/2016 Jenae HARGROVE MD, Ot 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 06/14/2016 Jenae HARGROVE MD, Ot I63.9 CEREBRAL INFARCTION, UNSPECIFIED 06/14/2016 Jenae HARGROVE MD Ot I65.29 OCCLUSION AND STENOSIS OF UNSPECIFIED CA 06/14/2016 Jenae HARGROVE MD Ot R06.02 SHORTNESS OF BREATH 06/14/2016 Jenae HARGROVE MD Ot R94.39 ABNORMAL RESULT OF OTHER CARDIOVASCULAR 06/14/2016 Jenae HARGROVE MD Ot Z53.09 PROC/TRTMT NOT CARRIED OUT BECAUSE OF CO 06/14/2016 Jenae HARGROVE MD, Ot Z79.02 PROCEDURAL NURSE (CURRENT) USE OF ANTITHROMBOTI 06/14/2016 Jenae HARGROVE MD, Ot Z79.899 OTHER PROCEDURAL NURSE (CURRENT) DRUG THERAPY 06/14/2016 Jenae HARGROVE MD, Ot Z87.891 PERSONAL HISTORY OF NICOTINE DEPENDENCE 09/10/2016 Ot 611.72 LUMP OR MASS IN BREAST 09/10/2016 Ot V15.89 HX-HEALTH HAZARDS NEC 09/10/2016 Ot 787.91 DIARRHEA 09/10/2016 Ot 610.9 BENIGN MAMM DYSPLAS NOS 09/10/2016 Ot 793.80 UNSPEC ABNORMAL MAMMOGRAM 09/10/2016 Ot V76.12 OTH SCREEN MAMMO-MALIGN NEOPLASM OF [place] 09/10/2016 Ot 610.0 SOLITARY CYST OF BREAST 09/10/2016 Ot 793.80 UNSPEC ABNORMAL MAMMOGRAM 09/10/2016 Ot 610.0 SOLITARY CYST OF BREAST 09/10/2016 Ot 793.80 UNSPEC ABNORMAL MAMMOGRAM 09/10/2016 JASPAL LUCEROHANIE Jenae PARK SUPERINTENDENT Ot V76.12 OTH SCREEN MAMMO-MALIGN NEOPLASM OF [place] 09/10/2016 LUCERO JULIANO Jenae PARK SUPERINTENDENT Ot 793.89 OTH (ABN) FINDINGS ON RADIOLOGICAL EXAMI 09/10/2016 JULIANO LUCERO PARK SUPERINTENDENT Ot 793.89 OTH (ABN) FINDINGS ON RADIOLOGICAL EXAMI 09/10/2016 ARTEM AGUILAR MD Ot 242.90 THYROTOX NOS NO CRISIS 09/10/2016 ARTEM AGUILAR MD Ot 250.00 DIAB ACACIA WO COMPL, TYPE II OR UNSPEC TY 09/10/2016 ARTEM AGUILAR MD Ot 275.2 DIS MAGNESIUM METABOLISM 09/10/2016 ARTEM AGUILAR MD Ot 276.8 HYPOPOTASSEMIA 09/10/2016 ARTEM AGUILAR MD Ot 599.0 URIN TRACT INFECTION NOS 09/10/2016 ARTEM AGUILAR MD Ot 728.88 RHABDOMYOLYSIS 09/10/2016 JULIANO LUCERO Ot 241.0 NONTOX UNINODULAR GOITER 09/10/2016 ARTEM AGUILAR MD Ot 733.90 BONE CARTILAGE DIS NOS 09/10/2016 ARTEM AGUILAR MD Ot 203.00 MULTIPLE MYELOMA, W/O MENTION OF HAVING 09/10/2016 ARTEM AGUILAR MD Ot 733.90 BONE CARTILAGE DIS NOS 09/10/2016 ARTEM AGUILAR MD Ot Z12.31 ENCNTR SCREEN MAMMOGRAM FOR MALIGNANT NE 09/11/2016 Jenae HARGROVE MD Ot Z48.812 ENCNTR FOR SURGICAL AFTCR FOLLOWING SURG 09/11/2016 Jenae HARGROVE MD Ot Z95.1 PRESENCE OF AORTOCORONARY BYPASS GRAFT 09/26/2016 WILBERT MERIDA MD Ot E11.9 TYPE 2 DIABETES MELLITUS WITHOUT COMPLIC 09/26/2016 WILBERT MERIDA MD Ot I10 ESSENTIAL (PRIMARY) HYPERTENSION 09/26/2016 WILBERT MERIDA MD Ot I95.9 HYPOTENSION, UNSPECIFIED 09/26/2016 WILBERT MERIDA MD Ot R03.1 NONSPECIFIC LOW BLOOD-PRESSURE READING 09/26/2016 WILBERT MERIDA MD Ot Z79.01 ALF (CURRENT) USE OF ANTICOAGULANT 09/26/2016 WILBERT MERIDA MD Ot Z79.02 ALF (CURRENT) USE OF ANTITHROMBOTI 09/26/2016 WILBERT MERIDA MD Ot Z79.899 OTHER ALF (CURRENT) DRUG THERAPY 09/26/2016 WILBERT MERIDA MD Ot Z86.73 PRSNL HX OF TIA (TIA), AND CEREB INFRC W 09/26/2016 WILBERT MERIDA MD Ot Z95.1 PRESENCE OF AORTOCORONARY BYPASS GRAFT 09/28/2016 WILBERT MERIDA MD Ot E11.9 TYPE 2 DIABETES MELLITUS WITHOUT COMPLIC 09/28/2016 WILBERT MERIDA MD Ot I10 ESSENTIAL (PRIMARY) HYPERTENSION 09/28/2016 WILBERT MERIDA MD Ot I95.9 HYPOTENSION, UNSPECIFIED 09/28/2016 WILBERT MERIDA MD Ot R03.1 NONSPECIFIC LOW BLOOD-PRESSURE READING 09/28/2016 WILBERT MERIDA MD Ot Z79.01 PROCEDURAL NURSE (CURRENT) USE OF ANTICOAGULANT 09/28/2016 WILBERT MERIDA MD Ot Z79.02 ALF (CURRENT) USE OF ANTITHROMBOTI 09/28/2016 WILBERT MERIDA MD Ot Z79.899 OTHER PROCEDURAL NURSE (CURRENT) DRUG THERAPY 09/28/2016 WILBERT MERIDA MD Ot Z86.73 PRSNL HX OF TIA (TIA), AND CEREB INFRC W 09/28/2016 WILBERT MERIDA MD Ot Z95.1 PRESENCE OF AORTOCORONARY BYPASS GRAFT 11/04/2016 Jenae HARGROVE MD Ot Z48.812 ENCNTR FOR SURGICAL AFTCR FOLLOWING SURG 11/04/2016 Jenae HARGROVE MD Ot Z95.1 PRESENCE OF AORTOCORONARY BYPASS GRAFT 11/19/2016 ARTEM AGUILAR MD Ot I73.89 OTHER SPECIFIED PERIPHERAL VASCULAR DISE 11/26/2016 ARTEM AGUILAR MD Ot I10 ESSENTIAL (PRIMARY) HYPERTENSION 11/26/2016 ARTEM AGUILAR MD Ot I25.10 ATHSCL HEART DISEASE OF [place] CORONARY 11/26/2016 ARTEM AGUILAR MD Ot I77.1 STRICTURE OF ARTERY 11/26/2016 ARTEM AGUILAR MD Ot Z72.0 TOBACCO USE 11/26/2016 ARTEM AGUILAR MD Ot I10 ESSENTIAL (PRIMARY) HYPERTENSION 11/26/2016 ARTEM AGUILAR MD Ot I25.10 ATHSCL HEART DISEASE OF [place] CORONARY 11/26/2016 ARTEM AGUILAR MD Ot I77.1 STRICTURE OF ARTERY 11/26/2016 ARTEM AGUILAR MD Ot Z72.0 TOBACCO USE 11/26/2016 ARTEM AGUILAR MD Ot I10 ESSENTIAL (PRIMARY) HYPERTENSION 11/26/2016 ARTEM AGUILAR MD Ot I25.10 ATHSCL HEART DISEASE OF [place] CORONARY 11/26/2016 ARTEM AGUILAR MD Ot I77.1 STRICTURE OF ARTERY 11/26/2016 ARTEM AGUILAR MD Ot Z72.0 TOBACCO USE 12/09/2016 Jenae HARGROVE MD Ot Z48.812 ENCNTR FOR SURGICAL AFTCR FOLLOWING SURG 12/09/2016 Jenae HARGROVE MD Ot Z95.1 PRESENCE OF AORTOCORONARY BYPASS GRAFT 12/18/2016 ARTEM AGUILAR MD Ot I10 ESSENTIAL (PRIMARY) HYPERTENSION 12/18/2016 ARTEM AGUILAR MD Ot I25.10 ATHSCL HEART DISEASE OF [place] CORONARY 12/18/2016 ARTEM AGUILAR MD Ot I77.1 STRICTURE OF ARTERY 12/18/2016 ARTEM AGUILAR MD Ot Z72.0 TOBACCO USE 01/08/2017 Jenae HARGROVE MD Ot Z48.812 ENCNTR FOR SURGICAL AFTCR FOLLOWING SURG 01/08/2017 Jenae HARGROVE MD Ot Z95.1 PRESENCE OF AORTOCORONARY BYPASS GRAFT 01/08/2017 Jenae HARGROVE MD Ot Z48.812 ENCNTR FOR SURGICAL AFTCR FOLLOWING SURG 01/08/2017 Jenae HARGROVE MD Ot Z95.1 PRESENCE OF AORTOCORONARY BYPASS GRAFT 01/08/2017 Jenae HARGROVE MD Ot Z48.812 ENCNTR FOR SURGICAL AFTCR FOLLOWING SURG 01/08/2017 Jenae HARGROVE MD Ot Z95.1 PRESENCE OF AORTOCORONARY BYPASS GRAFT 01/20/2017 Jenae HARGROVE MD Ot Z48.812 ENCNTR FOR SURGICAL AFTCR FOLLOWING SURG 01/20/2017 Jenae HARGROVE MD Ot Z95.1 PRESENCE OF AORTOCORONARY BYPASS GRAFT 02/04/2017 Jenae HARGROVE MD Ot Z48.812 ENCNTR FOR SURGICAL AFTCR FOLLOWING SURG 02/04/2017 Jenae HARGROVE MD Ot Z95.1 PRESENCE OF AORTOCORONARY BYPASS GRAFT 03/26/2017 Ot 787.91 DIARRHEA 03/26/2017 Ot 610.9 BENIGN MAMM DYSPLAS NOS 03/26/2017 Ot 793.80 UNSPEC ABNORMAL MAMMOGRAM 03/26/2017 Ot V76.12 OTH SCREEN MAMMO-MALIGN NEOPLASM OF [place] 03/26/2017 Ot 610.0 SOLITARY CYST OF BREAST 03/26/2017 Ot 793.80 UNSPEC ABNORMAL MAMMOGRAM 03/26/2017 Ot 610.0 SOLITARY CYST OF BREAST 03/26/2017 Ot 793.80 UNSPEC ABNORMAL MAMMOGRAM 03/26/2017 JULIANO LUCERO [facility] Ot V76.12 OTH SCREEN MAMMO-MALIGN NEOPLASM OF [place] 03/26/2017 JULIANO LUCEROP Ot 793.89 OTH (ABN) FINDINGS ON RADIOLOGICAL EXAMI 03/26/2017 JULIANO LUCEROP Ot 793.89 OTH (ABN) FINDINGS ON RADIOLOGICAL EXAMI 03/26/2017 ARTEM AGUILAR MD Ot 242.90 THYROTOX NOS NO CRISIS 03/26/2017 ARTEM AGUILAR MD Ot 250.00 DIAB ACACIA WO COMPL, TYPE II OR UNSPEC TY 03/26/2017 ARTEM AGUILAR MD Ot 275.2 DIS MAGNESIUM METABOLISM 03/26/2017 ARTEM AGUILAR MD Ot 276.8 HYPOPOTASSEMIA 03/26/2017 ARTEM AGUILAR MD Ot 599.0 URIN TRACT INFECTION NOS 03/26/2017 ARTEM AGUILAR MD Ot 728.88 RHABDOMYOLYSIS 03/26/2017 JULIANO LUCERO Ot 241.0 NONTOX UNINODULAR GOITER 03/26/2017 ARTEM AGUILAR MD Ot 733.90 BONE CARTILAGE DIS NOS 03/26/2017 ARTEM AGUILAR MD Ot 203.00 MULTIPLE MYELOMA, W/O MENTION OF HAVING 03/26/2017 ARTEM AGUILAR MD Ot 733.90 BONE CARTILAGE DIS NOS 03/26/2017 ARTEM AGUILAR MD Ot Z12.31 ENCNTR SCREEN MAMMOGRAM FOR MALIGNANT NE 03/26/2017 ARTEM AGUILAR MD Ot I10 ESSENTIAL (PRIMARY) HYPERTENSION 03/26/2017 ARTEM AGUILAR MD Ot I25.10 ATHSCL HEART DISEASE OF [place] CORONARY 03/26/2017 ARTEM AGUILAR MD Ot I77.1 STRICTURE OF ARTERY 03/26/2017 ARTEM AGUILAR MD Ot Z72.0 TOBACCO USE 04/17/2017 ARTEM AGUILAR MD Ot Z12.31 ENCNTR SCREEN MAMMOGRAM FOR MALIGNANT NE 04/21/2017 Jenae HARGROVE MD Ot I10 ESSENTIAL (PRIMARY) HYPERTENSION 04/21/2017 Jenae HARGROVE MD Ot I25.10 ATHSCL HEART DISEASE OF [place] CORONARY 04/21/2017 Jenae HARGROVE MD Ot R06.02 SHORTNESS OF BREATH 04/29/2017 RATEM AGUILAR MD Ot Z12.31 ENCNTR SCREEN MAMMOGRAM FOR MALIGNANT NE 05/21/2017 ARTEM AGUILAR MD Ot Z12.31 ENCNTR SCREEN MAMMOGRAM FOR MALIGNANT NE 06/30/2017 WALKER PAYAN MD F Ot I70.213 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 06/30/2017 WALKER PAYAN MD F Ot R82.99 OTHER ABNORMAL FINDINGS IN URINE 06/30/2017 WALKER PAYAN MD F Ot Z01.811 ENCOUNTER FOR PREPROCEDURAL RESPIRATORY 06/30/2017 KEYLA PAYAN MDL F Ot Z01.812 ENCOUNTER FOR PREPROCEDURAL LABORATORY E 07/24/2017 KEYLA PAYAN MDL F Ot I70.213 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 07/24/2017 WALKER PAYAN MD F Ot R82.99 OTHER ABNORMAL FINDINGS IN URINE 07/24/2017 WALKER PAYAN MD F Ot Z01.811 ENCOUNTER FOR PREPROCEDURAL RESPIRATORY 07/24/2017 WALKER PAYAN MD F Ot Z01.812 ENCOUNTER FOR PREPROCEDURAL LABORATORY E 07/25/2017 KEYLA PAYAN MDL F Ot I70.213 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 07/25/2017 WALKER PAYAN MD Ot R82.99 OTHER ABNORMAL FINDINGS IN URINE 07/25/2017 WALKER PAYAN MD Ot Z01.811 ENCOUNTER FOR PREPROCEDURAL RESPIRATORY 07/25/2017 WALKER PAYAN MD Ot Z01.812 ENCOUNTER FOR PREPROCEDURAL LABORATORY E 07/30/2017 WALKER PAYAN MD Ot N39.0 URINARY TRACT INFECTION, SITE NOT SPECIF 07/30/2017 WALKER PAYAN MD Ot Z01.810 ENCOUNTER FOR PREPROCEDURAL CARDIOVASCUL 07/30/2017 WALKER PAYAN MD Ot Z01.818 ENCOUNTER FOR OTHER PREPROCEDURAL EXAMIN 10/07/2017 Jenae HARGROVE MD Ot Z29.8 ENCOUNTER FOR OTHER SPECIFIED PROPHYLACT 11/11/2017 Jenae HARGROVE MD Ot Z29.8 ENCOUNTER FOR OTHER SPECIFIED PROPHYLACT 11/12/2017 Jenae HARGROVE MD Ot Z29.8 ENCOUNTER FOR OTHER SPECIFIED PROPHYLACT 12/01/2017 FLORA PRADO CYCLE DIRECTOR Ot E04.2 NONTOXIC MULTINODULAR GOITER 12/13/2017 ARTEM AGUILAR MD Ot Z29.8 ENCOUNTER FOR OTHER SPECIFIED PROPHYLACT 12/14/2017 ARTEM AGUILAR MD Ot Z29.8 ENCOUNTER FOR OTHER SPECIFIED PROPHYLACT 12/22/2017 FLORA PRADO APRN Ot E04.2 NONTOXIC MULTINODULAR GOITER 01/12/2018 Ot Z01.818 ENCOUNTER FOR OTHER PREPROCEDURAL EXAMIN 01/18/2018 JULIANO LUCERO Ot V76.12 OTH SCREEN MAMMO-MALIGN NEOPLASM OF [place] 01/18/2018 JULIANO LUCERO Ot 793.89 OTH (ABN) FINDINGS ON RADIOLOGICAL EXAMI 01/18/2018 JULIANO LUCERO Ot 793.89 OTH (ABN) FINDINGS ON RADIOLOGICAL EXAMI 01/18/2018 ARTEM AGUILAR MD Ot 242.90 THYROTOX NOS NO CRISIS 01/18/2018 ARTEM AGUILAR MD Ot 250.00 DIAB ACACIA WO COMPL, TYPE II OR UNSPEC TY 01/18/2018 JEFF MD, ARTEM A Ot 275.2 DIS MAGNESIUM METABOLISM 01/18/2018 ARTEM AGUILAR MD Ot 276.8 HYPOPOTASSEMIA 01/18/2018 ARTEM AGUILAR MD Ot 599.0 URIN TRACT INFECTION NOS 01/18/2018 ARTEM AGUILAR MD Ot 728.88 RHABDOMYOLYSIS 01/18/2018 JULIANO LUCERO [employer] Ot 241.0 NONTOX UNINODULAR GOITER 01/18/2018 ARTEM AGUILAR MD Ot 733.90 BONE CARTILAGE DIS NOS 01/18/2018 ARTEM AGUILAR MD Ot 203.00 MULTIPLE MYELOMA, W/O MENTION OF HAVING 01/18/2018 ARTEM AGUILAR MD Ot 733.90 BONE CARTILAGE DIS NOS 01/18/2018 ARTEM AGUILAR MD Ot Z12.31 ENCNTR SCREEN MAMMOGRAM FOR MALIGNANT NE 01/18/2018 ARTEM AGUILAR MD Ot I10 ESSENTIAL (PRIMARY) HYPERTENSION 01/18/2018 ARTEM AGUILAR MD Ot I25.10 ATHSCL HEART DISEASE OF [place] CORONARY 01/18/2018 ARTEM AGUILAR MD Ot I77.1 STRICTURE OF ARTERY 01/18/2018 ARTEM AGUILAR MD Ot Z72.0 TOBACCO USE 01/18/2018 Jenae HARGROVE MD Ot I10 ESSENTIAL (PRIMARY) HYPERTENSION 01/18/2018 Jenae HARGROVE MD Ot I25.10 ATHSCL HEART DISEASE OF [place] CORONARY 01/18/2018 Jenae HARGROVE MD Ot R06.02 SHORTNESS OF BREATH 01/18/2018 ARTEM AGUILAR MD Ot Z12.31 ENCNTR SCREEN MAMMOGRAM FOR MALIGNANT NE 01/18/2018 WALKER PAYAN MD Ot I70.213 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 01/18/2018 WALKER PAYAN MD Ot R82.99 OTHER ABNORMAL FINDINGS IN URINE 01/18/2018 WALKER PAYAN MD Ot Z01.811 ENCOUNTER FOR PREPROCEDURAL RESPIRATORY 01/18/2018 WALKER PAAYN MD Ot Z01.812 ENCOUNTER FOR PREPROCEDURAL LABORATORY E 01/18/2018 WALKER PAYAN MD Ot N39.0 URINARY TRACT INFECTION, SITE NOT SPECIF 01/18/2018 RABBI JOYNER, WALKER Ruano Ot Z01.810 ENCOUNTER FOR PREPROCEDURAL CARDIOVASCUL 01/18/2018 WALKER PAYAN MD Ot Z01.818 ENCOUNTER FOR OTHER PREPROCEDURAL EXAMIN 01/18/2018 FLORA PRADO CYCLE DIRECTOR Ot E04.2 NONTOXIC MULTINODULAR GOITER 01/19/2018 CLARENCE NUÑEZ MD Ot E04.1 NONTOXIC SINGLE THYROID NODULE 01/19/2018 SAVANNAH JOYNER, CLARENCE Emanuel Ot E11.9 TYPE 2 DIABETES MELLITUS WITHOUT COMPLIC 01/19/2018 CLARENCE NUÑEZ MD Ot E78.5 HYPERLIPIDEMIA, UNSPECIFIED 01/19/2018 CLARENCE NUÑEZ MD Ot I25.10 ATHSCL HEART DISEASE OF [place] CORONARY 01/19/2018 CLARENCE NUÑEZ MD Ot I65.29 OCCLUSION AND STENOSIS OF UNSPECIFIED CA 01/19/2018 CLARENCE NUÑEZ MD Ot 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 01/19/2018 SAVANNAH JOYNER, CLARENCE Emanuel Ot L72.3 SEBACEOUS CYST 01/19/2018 SAVANNAH JOYNER, CLARENCE Emanuel Ot Z79.82 PROCEDURAL NURSE (CURRENT) USE OF ASPIRIN 01/19/2018 CLARENCE NUÑEZ MD Ot Z79.899 OTHER PROCEDURAL NURSE (CURRENT) DRUG THERAPY 01/19/2018 CLARENCE NUÑEZ MD Ot Z87.891 PERSONAL HISTORY OF NICOTINE DEPENDENCE 01/19/2018 SAVANNAH JOYNER, CLARENCE Emanuel Ot Z95.1 PRESENCE OF AORTOCORONARY BYPASS GRAFT 01/20/2018 JOANA JOYNER, MICHAEL Hannah Ot 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, INC 01/20/2018 MICHAEL BERNARD MD Ot D64.9 ANEMIA, UNSPECIFIED 01/20/2018 MICHAEL BERNARD MD Ot E11.9 TYPE 2 DIABETES MELLITUS WITHOUT COMPLIC 01/20/2018 MICHAEL BERNARD MD Ot E78.00 PURE HYPERCHOLESTEROLEMIA, UNSPECIFIED 01/20/2018 MICHAEL BERNARD MD Ot I10 ESSENTIAL (PRIMARY) HYPERTENSION 01/20/2018 MICHAEL BERNARD MD Ot I25.10 ATHSCL HEART DISEASE OF [place] CORONARY 01/20/2018 MICHAEL BERNARD MD, Ot I25.2 OLD MYOCARDIAL INFARCTION 01/20/2018 MICHAEL BERNARD MD, Ot M62.82 RHABDOMYOLYSIS 01/20/2018 MICHAEL BERNARD MD Ot R05 COUGH 01/20/2018 MICHAEL BERNARD MD, Ot R11.0 NAUSEA 01/20/2018 MICHAEL BERNARD MD Ot R53.1 WEAKNESS 01/20/2018 MICHAEL BERNARD MD, Ot Z79.82 ALF (CURRENT) USE OF ASPIRIN 01/20/2018 MICHALE BERNARD MD, Ot Z79.84 ALF (CURRENT) USE OF ORAL HYPOGLYC 01/20/2018 MICHAEL BERNARD MD, Ot Z82.49 FAMILY HX OF ISCHEM HEART DIS AND OTH DI 01/20/2018 MICHAEL BERNARD MD, Ot Z86.718 PERSONAL HISTORY OF OTHER VENOUS THROMBO 01/20/2018 MICHAEL BERNARD MD, Ot Z86.73 PRSNL HX OF TIA (TIA), AND CEREB INFRC W 01/20/2018 MICHAEL BERNARD MD, Ot Z87.891 PERSONAL HISTORY OF NICOTINE DEPENDENCE 01/20/2018 MICHAEL BERNARD MD, Ot Z90.89 ACQUIRED ABSENCE OF OTHER ORGANS 01/20/2018 MICHAEL BERNARD MD, Ot Z95.1 PRESENCE OF AORTOCORONARY BYPASS GRAFT 01/22/2018 MICHAEL BERNARD MD Ot 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, INC 01/22/2018 MICHAEL BERNARD MD, Ot D64.9 ANEMIA, UNSPECIFIED 01/22/2018 MICHAEL BERNARD MD Ot E11.9 TYPE 2 DIABETES MELLITUS WITHOUT COMPLIC 01/22/2018 MICHAEL BERNARD MD Ot E78.00 PURE HYPERCHOLESTEROLEMIA, UNSPECIFIED 01/22/2018 MICHAEL BERNARD MD, Ot I10 ESSENTIAL (PRIMARY) HYPERTENSION 01/22/2018 MICHAEL BERNARD MD, Ot I25.10 ATHSCL HEART DISEASE OF [place] CORONARY 01/22/2018 BRUEGGEMANN MD, MICHAEL T Ot I25.2 OLD MYOCARDIAL INFARCTION 01/22/2018 MICHAEL BERNARD MD Ot M62.82 RHABDOMYOLYSIS 01/22/2018 MICHAEL BERNARD MD Ot R05 COUGH 01/22/2018 MICHAEL BERNARD MD Ot R11.0 NAUSEA 01/22/2018 MICHAEL BERNARD MD Ot R53.1 WEAKNESS 01/22/2018 MICHAEL BERNARD MD, Ot Z79.82 ALF (CURRENT) USE OF ASPIRIN 01/22/2018 MICHAEL BERNARD MD Ot Z79.84 ALF (CURRENT) USE OF ORAL HYPOGLYC 01/22/2018 MICHAEL BERNARD MD, Ot Z82.49 FAMILY HX OF ISCHEM HEART DIS AND OTH DI 01/22/2018 MICHAEL BERNARD MD, Ot Z86.718 PERSONAL HISTORY OF OTHER VENOUS THROMBO 01/22/2018 MICHAEL BERNARD MD, Ot Z86.73 PRSNL HX OF TIA (TIA), AND CEREB INFRC W 01/22/2018 MICHAEL BERNARD MD Ot Z87.891 PERSONAL HISTORY OF NICOTINE DEPENDENCE 01/22/2018 MICHAEL BERNARD MD Ot Z90.89 ACQUIRED ABSENCE OF OTHER ORGANS 01/22/2018 MICHAEL BERNARD MD Ot Z95.1 PRESENCE OF AORTOCORONARY BYPASS GRAFT 01/24/2018 Jenae HARGROVE MD Ot Z29.8 ENCOUNTER FOR OTHER SPECIFIED PROPHYLACT 02/12/2018 MICHAEL BERNARD MD Ot 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, INC 02/12/2018 MICHAEL BERNARD MD Ot D64.9 ANEMIA, UNSPECIFIED 02/12/2018 MICHAEL BERNARD MD Ot E11.9 TYPE 2 DIABETES MELLITUS WITHOUT COMPLIC 02/12/2018 MICHAEL BERNARD MD Ot E78.00 PURE HYPERCHOLESTEROLEMIA, UNSPECIFIED 02/12/2018 MICHAEL BERNARD MD Ot I10 ESSENTIAL (PRIMARY) HYPERTENSION 02/12/2018 MICHAEL BERNARD MD, Ot I25.10 ATHSCL HEART DISEASE OF [place] CORONARY 02/12/2018 MICHAEL BERNARD MD, Ot I25.2 OLD MYOCARDIAL INFARCTION 02/12/2018 MICHAEL BERNARD MD, Ot M62.82 RHABDOMYOLYSIS 02/12/2018 MICHAEL BERNARD MD, Ot R05 COUGH 02/12/2018 MICHAEL BERNARD MD, Ot R11.0 NAUSEA 02/12/2018 MICHAEL BERNARD MD, Ot R53.1 WEAKNESS 02/12/2018 MICHAEL BERNARD MD, Ot Z79.82 ALF (CURRENT) USE OF ASPIRIN 02/12/2018 MICHAEL BERNARD MD, Ot Z79.84 ALF (CURRENT) USE OF ORAL HYPOGLYC 02/12/2018 MICHAEL BERNARD MD, Ot Z82.49 FAMILY HX OF ISCHEM HEART DIS AND OTH DI 02/12/2018 MICHAEL BERNARD MD, Ot Z86.718 PERSONAL HISTORY OF OTHER VENOUS THROMBO 02/12/2018 MICHAEL BERNARD MD, Ot Z86.73 PRSNL HX OF TIA (TIA), AND CEREB INFRC W 02/12/2018 MICHAEL BERNARD MD, Ot Z87.891 PERSONAL HISTORY OF NICOTINE DEPENDENCE 02/12/2018 MICHAEL BERNARD MD, Ot Z90.89 ACQUIRED ABSENCE OF OTHER ORGANS 02/12/2018 MICHAEL BERNARD MD, Ot Z95.1 PRESENCE OF AORTOCORONARY BYPASS GRAFT 03/04/2018 CLARENCE NUÑEZ MD Ot Z01.818 ENCOUNTER FOR OTHER PREPROCEDURAL EXAMIN 03/04/2018 CLARENCE NUÑEZ MD Ot Z01.818 ENCOUNTER FOR OTHER PREPROCEDURAL EXAMIN 03/05/2018 CLARENCE NUÑEZ MD Ot Z01.818 ENCOUNTER FOR OTHER PREPROCEDURAL EXAMIN 03/05/2018 CLARENCE NUÑEZ MD, Ot Z01.818 ENCOUNTER FOR OTHER PREPROCEDURAL EXAMIN Procedures There is no data. Results Test Result Range PT panel in platelet poor plasma by coagulation assay - 05/04/16 08:00 Prothrombin time (PT) in platelet poor plasma by coagulation assay 12.2 s 12.2-14.7 INR in platelet poor plasma or blood by coagulation assay 0.9 0.8-1.4 Activated partial thromboplastin time (aPTT) in platelet poor plasma bycoagulation assay - 05/04/16 08:00 Activated partial thromboplastin time (aPTT) in platelet poor plasma bycoagulation assay 26 s 24-35 Complete blood count (CBC) with automated white blood cell (WBC) differential - 05/04/16 08:00 Blood leukocytes automated count (number/volume) 6.6 10*3/uL 4.3-11.0 Blood erythrocytes automated count (number/volume) 4.97 10*6/uL 4.35-5.85 Venous blood hemoglobin measurement (mass/volume) 15.1 g/dL 11.5-16.0 Blood hematocrit (volume fraction) 44 % 35-52 Automated erythrocyte mean corpuscular volume 88 [foz_us] 80-99 Automated erythrocyte mean corpuscular hemoglobin (mass per erythrocyte) 30 pg 25-34 Automated erythrocyte mean corpuscular hemoglobin concentration measurement ( mass/volume) 35 g/dL 32-36 Automated erythrocyte distribution width ratio 13.3 % 10.0-14.5 Automated blood platelet count (count/volume) 294 10*3/uL 130-400 Automated blood platelet mean volume measurement 9.3 [foz_us] 7.4-10.4 Automated blood neutrophils/100 leukocytes 71 % 42-75 Automated blood lymphocytes/100 leukocytes 23 % 12-44 Blood monocytes/100 leukocytes 5 % 0-12 Automated blood eosinophils/100 leukocytes 1 % 0-10 Automated blood basophils/100 leukocytes 0 % 0-10 Blood neutrophils automated count (number/volume) 4.7 10*3 1.8-7.8 Blood lymphocytes automated count (number/volume) 1.5 10*3 1.0-4.0 Blood monocytes automated count (number/volume) 0.3 10*3 0.0-1.0 Automated eosinophil count 0.0 10*3/uL 0.0-0.3 Automated blood basophil count (count/volume) 0.0 10*3/uL 0.0-0.1 Fibrin D-dimer FEU measurement in platelet poor plasma (mass/volume) - 08:00 Fibrin D-dimer FEU measurement in platelet poor plasma (mass/volume) 0.79 ug/mL 0.00-0.49 Comprehensive metabolic panel - 05/04/16 08:00 Serum or plasma sodium measurement (moles/volume) 142 mmol/L 135-145 Serum or plasma potassium measurement (moles/volume) 4.0 mmol/L 3.6-5.0 Serum or plasma chloride measurement (moles/volume) 113 mmol/L 98-107 Carbon dioxide 20 mmol/L 21-32 Serum or plasma anion gap determination (moles/volume) 9 mmol/L 5-14 Serum or plasma urea nitrogen measurement (mass/volume) 14 mg/dL 7-18 Serum or plasma creatinine measurement (mass/volume) 0.78 mg/dL 0.60-1.30 Serum or plasma urea nitrogen/creatinine mass ratio 18 NRG Serum or plasma creatinine measurement with calculation of estimated glomerular filtration rate > NRG Serum or plasma glucose measurement (mass/volume) 145 mg/dL 70-105 Serum or plasma calcium measurement (mass/volume) 9.3 mg/dL 8.5-10.1 Serum or plasma total bilirubin measurement (mass/volume) 0.5 mg/dL 0.1-1.0 Serum or plasma alkaline phosphatase measurement (enzymatic activity/volume) 125 U/L 40-136 Serum or plasma aspartate aminotransferase measurement (enzymatic activity/ volume) 15 U/L 5-34 Serum or plasma alanine aminotransferase measurement (enzymatic activity/volume ) 21 U/L 0-55 Serum or plasma protein measurement (mass/volume) 6.5 g/dL 6.4-8.2 Serum or plasma albumin measurement (mass/volume) 4.1 g/dL 3.2-4.5 Serum or plasma troponin i.cardiac measurement (mass/volume) - 05/04/16 08:00 Serum or plasma troponin i.cardiac measurement (mass/volume) < ng/ mL <0.30 Hemoglobin A1c - 05/04/16 08:00 Hemoglobin A1c 5.9 % 4.5-6.2 Complete urinalysis with reflex to culture - 05/04/16 10:48 Urine color determination YELLOW NRG Urine clarity determination CLEAR NRG Urine pH measurement by test strip 6.5 5-9 Specific gravity of urine by test strip 1.015 1.016- 1.022 Urine protein assay by test strip, semi-quantitative NEGATIVE NEGATIVE Urine glucose detection by automated test strip NEGATIVE NEGATIVE Erythrocytes detection in urine sediment by light microscopy NEGATIVE NEGATIVE Urine ketones detection by automated test strip NEGATIVE NEGATIVE Urine nitrite detection by test strip NEGATIVE NEGATIVE Urine total bilirubin detection by test strip NEGATIVE NEGATIVE Urine urobilinogen measurement by automated test strip (mass/volume) NORMAL NORMAL Urine leukocyte esterase detection by dipstick 1+ NEGATIVE Automated urine sediment erythrocyte count by microscopy (number/high power field) NONE NRG Automated urine sediment leukocyte count by microscopy (number/high power field ) NONE NRG Bacteria detection in urine sediment by light microscopy TRACE NRG Squamous epithelial cells detection in urine sediment by light microscopy RARE NRG Crystals detection in urine sediment by light microscopy NONE NRG Casts detection in urine sediment by light microscopy NONE NRG Mucus detection in urine sediment by light microscopy NEGATIVE NRG Complete urinalysis with reflex to culture NO NRG Serum or plasma phosphate measurement (mass/volume) - 05/04/16 13:13 Serum or plasma phosphate measurement (mass/volume) 3.3 mg/dL 2.3-4.7 Magnesium - 05/04/16 13:13 Magnesium 2.0 mg/dL 1.8-2.4 THYROID STIMULATING HORMONE - 05/04/16 13:13 THYROID STIMULATING HORMONE 0.16 u[iU]/mL 0.35-4.94 Serum or plasma thyroxine (T4) free measurement (mass/volume) - 05/04/16 13:13 Serum or plasma thyroxine (T4) free measurement (mass/volume) 1.14 ng/dL 0.70-1.48 Capillary blood glucose measurement by glucometer (mass/volume) - 05/04/16 16: 07 Capillary blood glucose measurement by glucometer (mass/volume) 101 mg/dL 70-110 Capillary blood glucose measurement by glucometer (mass/volume) - 05/04/16 16: 27 Capillary blood glucose measurement by glucometer (mass/volume) 92 mg/dL 70-110 Capillary blood glucose measurement by glucometer (mass/volume) - 05/04/16 20: 32 Capillary blood glucose measurement by glucometer (mass/volume) 83 mg/dL 70-110 Comprehensive metabolic panel - 05/05/16 03:50 Serum or plasma sodium measurement (moles/volume) 141 mmol/L 135-145 Serum or plasma potassium measurement (moles/volume) 3.7 mmol/L 3.6-5.0 Serum or plasma chloride measurement (moles/volume) 114 mmol/L 98-107 Carbon dioxide 20 mmol/L 21-32 Serum or plasma anion gap determination (moles/volume) 7 mmol/L 5-14 Serum or plasma urea nitrogen measurement (mass/volume) 13 mg/dL 7-18 Serum or plasma creatinine measurement (mass/volume) 0.69 mg/dL 0.60-1.30 Serum or plasma urea nitrogen/creatinine mass ratio 19 NRG Serum or plasma creatinine measurement with calculation of estimated glomerular filtration rate > NRG Serum or plasma glucose measurement (mass/volume) 109 mg/dL 70-105 Serum or plasma calcium measurement (mass/volume) 8.5 mg/dL 8.5-10.1 Serum or plasma total bilirubin measurement (mass/volume) 0.7 mg/dL 0.1-1.0 Serum or plasma alkaline phosphatase measurement (enzymatic activity/volume) 97 U/L 40-136 Serum or plasma aspartate aminotransferase measurement (enzymatic activity/ volume) 14 U/L 5-34 Serum or plasma alanine aminotransferase measurement (enzymatic activity/volume ) 13 U/L 0-55 Serum or plasma protein measurement (mass/volume) 5.1 g/dL 6.4-8.2 Serum or plasma albumin measurement (mass/volume) 3.2 g/dL 3.2-4.5 Complete blood count (CBC) with automated white blood cell (WBC) differential - 05/05/16 03:50 Blood leukocytes automated count (number/volume) 6.5 10*3/uL 4.3-11.0 Blood erythrocytes automated count (number/volume) 4.20 10*6/uL 4.35-5.85 Venous blood hemoglobin measurement (mass/volume) 12.9 g/dL 11.5-16.0 Blood hematocrit (volume fraction) 38 % 35-52 Automated erythrocyte mean corpuscular volume 91 [foz_us] 80-99 Automated erythrocyte mean corpuscular hemoglobin (mass per erythrocyte) 31 pg 25-34 Automated erythrocyte mean corpuscular hemoglobin concentration measurement ( mass/volume) 34 g/dL 32-36 Automated erythrocyte distribution width ratio 13.2 % 10.0-14.5 Automated blood platelet count (count/volume) 242 10*3/uL 130-400 Automated blood platelet mean volume measurement 9.7 [foz_us] 7.4-10.4 Automated blood neutrophils/100 leukocytes 66 % 42-75 Automated blood lymphocytes/100 leukocytes 27 % 12-44 Blood monocytes/100 leukocytes 6 % 0-12 Automated blood eosinophils/100 leukocytes 1 % 0-10 Automated blood basophils/100 leukocytes 0 % 0-10 Blood neutrophils automated count (number/volume) 4.3 10*3 1.8-7.8 Blood lymphocytes automated count (number/volume) 1.8 10*3 1.0-4.0 Blood monocytes automated count (number/volume) 0.4 10*3 0.0-1.0 Automated eosinophil count 0.1 10*3/uL 0.0-0.3 Automated blood basophil count (count/volume) 0.0 10*3/uL 0.0-0.1 Lipid 1996 panel - 05/05/16 03:50 Serum or plasma triglyceride measurement (mass/volume) 94 mg/dL <150 Serum or plasma cholesterol measurement (mass/volume) 136 mg/dL < 200 Serum or plasma cholesterol in HDL measurement (mass/volume) 32 mg/ dL 40-60 Cholesterol in LDL [mass/volume] in serum or plasma by direct assay 87 mg/dL 1-129 Serum or plasma cholesterol in VLDL measurement (mass/volume) 19 mg/ dL 5-40 Capillary blood glucose measurement by glucometer (mass/volume) - 05/05/16 11: 02 Capillary blood glucose measurement by glucometer (mass/volume) 96 mg/dL 70-110 Capillary blood glucose measurement by glucometer (mass/volume) - 05/05/16 17: 49 Capillary blood glucose measurement by glucometer (mass/volume) 109 mg/dL 70-110 Capillary blood glucose measurement by glucometer (mass/volume) - 05/05/16 20: 42 Capillary blood glucose measurement by glucometer (mass/volume) 120 mg/dL 70-110 Capillary blood glucose measurement by glucometer (mass/volume) - 05/06/16 05: 28 Capillary blood glucose measurement by glucometer (mass/volume) 112 mg/dL 70-110 Capillary blood glucose measurement by glucometer (mass/volume) - 05/06/16 10: 58 Capillary blood glucose measurement by glucometer (mass/volume) 100 mg/dL 70-110 Capillary blood glucose measurement by glucometer (mass/volume) - 05/06/16 15: 42 Capillary blood glucose measurement by glucometer (mass/volume) 102 mg/dL 70-110 Capillary blood glucose measurement by glucometer (mass/volume) - 05/06/16 21: 01 Capillary blood glucose measurement by glucometer (mass/volume) 114 mg/dL 70-110 Capillary blood glucose measurement by glucometer (mass/volume) - 05/07/16 06: 27 Capillary blood glucose measurement by glucometer (mass/volume) 97 mg/dL 70-110 Capillary blood glucose measurement by glucometer (mass/volume) - 05/07/16 12: 14 Capillary blood glucose measurement by glucometer (mass/volume) 71 mg/dL 70-110 Automated blood complete blood count (hemogram) panel - 05/29/16 07:30 Blood leukocytes automated count (number/volume) 5.6 10*3/uL 4.3-11.0 Blood erythrocytes automated count (number/volume) 4.80 10*6/uL 4.35-5.85 Venous blood hemoglobin measurement (mass/volume) 14.7 g/dL 11.5-16.0 Blood hematocrit (volume fraction) 43 % 35-52 Automated erythrocyte mean corpuscular volume 89 [foz_us] 80-99 Automated erythrocyte mean corpuscular hemoglobin (mass per erythrocyte) 31 pg 25-34 Automated erythrocyte mean corpuscular hemoglobin concentration measurement ( mass/volume) 34 g/dL 32-36 Automated erythrocyte distribution width ratio 12.8 % 10.0-14.5 Automated blood platelet count (count/volume) 287 10*3/uL 130-400 Automated blood platelet mean volume measurement 9.3 [foz_us] 7.4-10.4 PT panel in platelet poor plasma by coagulation assay - 05/29/16 07:30 Prothrombin time (PT) in platelet poor plasma by coagulation assay 12.1 s 12.2-14.7 INR in platelet poor plasma or blood by coagulation assay 0.9 0.8-1.4 Activated partial thromboplastin time (aPTT) in platelet poor plasma bycoagulation assay - 05/29/16 07:30 Activated partial thromboplastin time (aPTT) in platelet poor plasma bycoagulation assay 25 s 24-35 Comprehensive metabolic panel - 05/29/16 07:30 Serum or plasma sodium measurement (moles/volume) 137 mmol/L 135-145 Serum or plasma potassium measurement (moles/volume) 4.0 mmol/L 3.6-5.0 Serum or plasma chloride measurement (moles/volume) 106 mmol/L 98-107 Carbon dioxide 24 mmol/L 21-32 Serum or plasma anion gap determination (moles/volume) 7 mmol/L 5-14 Serum or plasma urea nitrogen measurement (mass/volume) 17 mg/dL 7-18 Serum or plasma creatinine measurement (mass/volume) 0.82 mg/dL 0.60-1.30 Serum or plasma urea nitrogen/creatinine mass ratio 21 NRG Serum or plasma creatinine measurement with calculation of estimated glomerular filtration rate > NRG Serum or plasma glucose measurement (mass/volume) 107 mg/dL 70-105 Serum or plasma calcium measurement (mass/volume) 9.2 mg/dL 8.5-10.1 Serum or plasma total bilirubin measurement (mass/volume) 0.5 mg/dL 0.1-1.0 Serum or plasma alkaline phosphatase measurement (enzymatic activity/volume) 123 U/L 40-136 Serum or plasma aspartate aminotransferase measurement (enzymatic activity/ volume) 16 U/L 5-34 Serum or plasma alanine aminotransferase measurement (enzymatic activity/volume ) 18 U/L 0-55 Serum or plasma protein measurement (mass/volume) 6.4 g/dL 6.4-8.2 Serum or plasma albumin measurement (mass/volume) 4.0 g/dL 3.2-4.5 Lipid 1996 panel - 05/29/16 07:30 Serum or plasma triglyceride measurement (mass/volume) 74 mg/dL <150 Serum or plasma cholesterol measurement (mass/volume) 114 mg/dL < 200 Serum or plasma cholesterol in HDL measurement (mass/volume) 43 mg/ dL 40-60 Cholesterol in LDL [mass/volume] in serum or plasma by direct assay 54 mg/dL 1-129 Serum or plasma cholesterol in VLDL measurement (mass/volume) 15 mg/ dL 5-40 Complete urinalysis with reflex to culture - 05/29/16 07:30 Urine color determination YELLOW NRG Urine clarity determination CLEAR NRG Urine pH measurement by test strip 6 5-9 Specific gravity of urine by test strip 1.010 1.016- 1.022 Urine protein assay by test strip, semi-quantitative NEGATIVE NEGATIVE Urine glucose detection by automated test strip NEGATIVE NEGATIVE Erythrocytes detection in urine sediment by light microscopy 1+ NEGATIVE Urine ketones detection by automated test strip NEGATIVE NEGATIVE Urine nitrite detection by test strip NEGATIVE NEGATIVE Urine total bilirubin detection by test strip NEGATIVE NEGATIVE Urine urobilinogen measurement by automated test strip (mass/volume) NORMAL NORMAL Urine leukocyte esterase detection by dipstick 3+ NEGATIVE Automated urine sediment erythrocyte count by microscopy (number/high power field) [HPF] NRG Automated urine sediment leukocyte count by microscopy (number/high power field ) [HPF] NRG Bacteria detection in urine sediment by light microscopy TRACE NRG Squamous epithelial cells detection in urine sediment by light microscopy 5-10 NRG Crystals detection in urine sediment by light microscopy NONE NRG Casts detection in urine sediment by light microscopy NONE NRG Mucus detection in urine sediment by light microscopy NEGATIVE NRG Complete urinalysis with reflex to culture YES NRG Renal epithelial cells detection in urine sediment by light microscopy 5-10 NRG Bacterial urine culture - 05/29/16 07:30 Bacterial urine culture [id number] NRG COLONY COUNT >100,000/ML NRG FTX;REPORTABLE SENSITIVITY REPORTED 05/31/16 8:30 NRG Methicillin resistant Staphylococcus aureus (MRSA) screening culture - 07:30 Methicillin resistant Staphylococcus aureus (MRSA) screening culture NEG NRG Bacterial susceptibility panel - 05/29/16 07:30 Gentamicin susceptibility test by minimum inhibitory concentration < = NRG Trimethoprim/sulfamethoxazole susceptibility test by minimum inhibitoryconcentration <= NRG Ampicillin susceptibility test by minimum inhibitory concentration < = NRG Tobramycin susceptibility test by minimum inhibitory concentration < = NRG Cefazolin susceptibility test by minimum inhibitory concentration < = NRG Ceftriaxone susceptibility test by minimum inhibitory concentration <= NRG Ampicillin/sulbactam susceptibility test by minimum inhibitory concentration <= NRG Piperacillin/tazobactam susceptibility test by minimum inhibitory concentration <= NRG Ciprofloxacin susceptibility test by minimum inhibitory concentration <= NRG Meropenem susceptibility test by minimum inhibitory concentration < = NRG Nitrofurantoin susceptibility test by minimum inhibitory concentration <= NRG Aztreonam susceptibility test by minimum inhibitory concentration < = NRG Extended spectrum beta lactamase (ESBL) producing bacteria susceptibility test by minimum inhibitory concentration - NRG Complete blood count (CBC) with automated white blood cell (WBC) differential - 09/26/16 11:25 Blood leukocytes automated count (number/volume) 9.2 10*3/uL 4.3-11.0 Blood erythrocytes automated count (number/volume) 4.55 10*6/uL 4.35-5.85 Venous blood hemoglobin measurement (mass/volume) 13.7 g/dL 11.5-16.0 Blood hematocrit (volume fraction) 41 % 35-52 Automated erythrocyte mean corpuscular volume 90 [foz_us] 80-99 Automated erythrocyte mean corpuscular hemoglobin (mass per erythrocyte) 30 pg 25-34 Automated erythrocyte mean corpuscular hemoglobin concentration measurement ( mass/volume) 33 g/dL 32-36 Automated erythrocyte distribution width ratio 12.7 % 10.0-14.5 Automated blood platelet count (count/volume) 320 10*3/uL 130-400 Automated blood platelet mean volume measurement 9.6 [foz_us] 7.4-10.4 Automated blood neutrophils/100 leukocytes 72 % 42-75 Automated blood lymphocytes/100 leukocytes 16 % 12-44 Blood monocytes/100 leukocytes 12 % 0-12 Automated blood eosinophils/100 leukocytes 1 % 0-10 Automated blood basophils/100 leukocytes 0 % 0-10 Blood neutrophils automated count (number/volume) 6.6 10*3 1.8-7.8 Blood lymphocytes automated count (number/volume) 1.5 10*3 1.0-4.0 Blood monocytes automated count (number/volume) 1.1 10*3 0.0-1.0 Automated eosinophil count 0.1 10*3/uL 0.0-0.3 Automated blood basophil count (count/volume) 0.0 10*3/uL 0.0-0.1 Whole blood basic metabolic panel - 09/26/16 11:25 Serum or plasma sodium measurement (moles/volume) 138 mmol/L 135-145 Serum or plasma potassium measurement (moles/volume) 3.7 mmol/L 3.6-5.0 Serum or plasma chloride measurement (moles/volume) 105 mmol/L 98-107 Carbon dioxide 23 mmol/L 21-32 Serum or plasma anion gap determination (moles/volume) 10 mmol/L 5-14 Serum or plasma urea nitrogen measurement (mass/volume) 11 mg/dL 7-18 Serum or plasma creatinine measurement (mass/volume) 0.83 mg/dL 0.60-1.30 Serum or plasma urea nitrogen/creatinine mass ratio 13 NRG Serum or plasma creatinine measurement with calculation of estimated glomerular filtration rate > NRG Serum or plasma glucose measurement (mass/volume) 103 mg/dL 70-105 Serum or plasma calcium measurement (mass/volume) 9.4 mg/dL 8.5-10.1 Serum or plasma troponin i.cardiac measurement (mass/volume) - 09/26/16 11:25 Serum or plasma troponin i.cardiac measurement (mass/volume) < ng/ mL <0.30 Complete urinalysis with reflex to culture - 09/26/16 12:52 Urine color determination YELLOW NRG Urine clarity determination CLEAR NRG Urine pH measurement by test strip 6.5 5-9 Specific gravity of urine by test strip 1.005 1.016- 1.022 Urine protein assay by test strip, semi-quantitative NEGATIVE NEGATIVE Urine glucose detection by automated test strip NEGATIVE NEGATIVE Erythrocytes detection in urine sediment by light microscopy NEGATIVE NEGATIVE Urine ketones detection by automated test strip NEGATIVE NEGATIVE Urine nitrite detection by test strip NEGATIVE NEGATIVE Urine total bilirubin detection by test strip NEGATIVE NEGATIVE Urine urobilinogen measurement by automated test strip (mass/volume) NORMAL NORMAL Urine leukocyte esterase detection by dipstick NEGATIVE NEGATIVE Automated urine sediment erythrocyte count by microscopy (number/high power field) NONE NRG Automated urine sediment leukocyte count by microscopy (number/high power field ) RARE NRG Bacteria detection in urine sediment by light microscopy NEGATIVE NRG Squamous epithelial cells detection in urine sediment by light microscopy 2-5 NRG Crystals detection in urine sediment by light microscopy NONE NRG Casts detection in urine sediment by light microscopy NONE NRG Mucus detection in urine sediment by light microscopy NEGATIVE NRG Complete urinalysis with reflex to culture NO NRG Automated blood complete blood count (hemogram) panel - 06/29/17 10:25 Blood leukocytes automated count (number/volume) 5.1 10*3/uL 4.3-11.0 Blood erythrocytes automated count (number/volume) 4.55 10*6/uL 4.35-5.85 Venous blood hemoglobin measurement (mass/volume) 13.9 g/dL 11.5-16.0 Blood hematocrit (volume fraction) 41 % 35-52 Automated erythrocyte mean corpuscular volume 90 [foz_us] 80-99 Automated erythrocyte mean corpuscular hemoglobin (mass per erythrocyte) 31 pg 25-34 Automated erythrocyte mean corpuscular hemoglobin concentration measurement ( mass/volume) 34 g/dL 32-36 Automated erythrocyte distribution width ratio 13.2 % 10.0-14.5 Automated blood platelet count (count/volume) 262 10*3/uL 130-400 Automated blood platelet mean volume measurement 8.6 [foz_us] 7.4-10.4 Complete urinalysis with reflex to culture - 06/29/17 10:25 Urine color determination YELLOW NRG Urine clarity determination CLEAR NRG Urine pH measurement by test strip 5 5-9 Specific gravity of urine by test strip 1.010 1.016- 1.022 Urine protein assay by test strip, semi-quantitative NEGATIVE NEGATIVE Urine glucose detection by automated test strip NEGATIVE NEGATIVE Erythrocytes detection in urine sediment by light microscopy NEGATIVE NEGATIVE Urine ketones detection by automated test strip NEGATIVE NEGATIVE Urine nitrite detection by test strip NEGATIVE NEGATIVE Urine total bilirubin detection by test strip NEGATIVE NEGATIVE Urine urobilinogen measurement by automated test strip (mass/volume) NORMAL NORMAL Urine leukocyte esterase detection by dipstick 2+ NEGATIVE Automated urine sediment erythrocyte count by microscopy (number/high power field) NONE NRG Automated urine sediment leukocyte count by microscopy (number/high power field ) [HPF] NRG Bacteria detection in urine sediment by light microscopy TRACE NRG Squamous epithelial cells detection in urine sediment by light microscopy 2-5 NRG Crystals detection in urine sediment by light microscopy NONE NRG Casts detection in urine sediment by light microscopy NONE NRG Mucus detection in urine sediment by light microscopy NEGATIVE NRG Complete urinalysis with reflex to culture YES NRG Comprehensive metabolic panel - 06/29/17 10:25 Serum or plasma sodium measurement (moles/volume) 142 mmol/L 135-145 Serum or plasma potassium measurement (moles/volume) 4.3 mmol/L 3.6-5.0 Serum or plasma chloride measurement (moles/volume) 109 mmol/L 98-107 Carbon dioxide 25 mmol/L 21-32 Serum or plasma anion gap determination (moles/volume) 8 mmol/L 5-14 Serum or plasma urea nitrogen measurement (mass/volume) 14 mg/dL 7-18 Serum or plasma creatinine measurement (mass/volume) 0.80 mg/dL 0.60-1.30 Serum or plasma urea nitrogen/creatinine mass ratio 18 NRG Serum or plasma creatinine measurement with calculation of estimated glomerular filtration rate > NRG Serum or plasma glucose measurement (mass/volume) 81 mg/dL 70-105 Serum or plasma calcium measurement (mass/volume) 9.2 mg/dL 8.5-10.1 Serum or plasma total bilirubin measurement (mass/volume) 0.5 mg/dL 0.1-1.0 Serum or plasma alkaline phosphatase measurement (enzymatic activity/volume) 136 U/L 40-136 Serum or plasma aspartate aminotransferase measurement (enzymatic activity/ volume) 16 U/L 5-34 Serum or plasma alanine aminotransferase measurement (enzymatic activity/volume ) 18 U/L 0-55 Serum or plasma protein measurement (mass/volume) 6.8 g/dL 6.4-8.2 Serum or plasma albumin measurement (mass/volume) 3.9 g/dL 3.2-4.5 Bacterial urine culture - 06/29/17 10:25 URINE CULTURE RESULTS <10,000/ML NRG Complete urinalysis with reflex to culture - 07/06/17 09:49 Urine color determination YELLOW NRG Urine clarity determination CLEAR NRG Urine pH measurement by test strip 6 5-9 Specific gravity of urine by test strip 1.015 1.016- 1.022 Urine protein assay by test strip, semi-quantitative NEGATIVE NEGATIVE Urine glucose detection by automated test strip NEGATIVE NEGATIVE Erythrocytes detection in urine sediment by light microscopy NEGATIVE NEGATIVE Urine ketones detection by automated test strip NEGATIVE NEGATIVE Urine nitrite detection by test strip NEGATIVE NEGATIVE Urine total bilirubin detection by test strip NEGATIVE NEGATIVE Urine urobilinogen measurement by automated test strip (mass/volume) NORMAL NORMAL Urine leukocyte esterase detection by dipstick NEGATIVE NEGATIVE Automated urine sediment erythrocyte count by microscopy (number/high power field) NONE NRG Automated urine sediment leukocyte count by microscopy (number/high power field ) NONE NRG Bacteria detection in urine sediment by light microscopy NEGATIVE NRG Squamous epithelial cells detection in urine sediment by light microscopy 0-2 NRG Crystals detection in urine sediment by light microscopy NONE NRG Casts detection in urine sediment by light microscopy NONE NRG Mucus detection in urine sediment by light microscopy NEGATIVE NRG Complete urinalysis with reflex to culture NO NRG Encounters ACCT No. Visit Date/Time Discharge Status Pt. Type Provider Facility Loc./Unit Complaint [id number] 03/05/2018 10:23:00 03/05/2018 10:32:00 DIS Outpatient CLARENCE NUÑEZ MD [facility] PREOP SKIN LESION/GERD [id number] 03/04/2018 07:30:00 03/04/2018 23:59:59 CLS Preadmit REJI STOKES MD [facility] RAD ATHEROSCLEROSIS OF NOME ARTERIES OF EXT RUSSELL LEGS [id number] 01/25/2018 00:09:00 01/25/2018 23:59:59 CLS Preadmit Jenae HARGROVE MD [facility] WELLNESS [id number] 12/30/2017 15:31:00 01/24/2018 00:01:00 DIS Outpatient Jenae HARGROVE MD [facility] WELLNESS [id number] 01/20/2018 09:21:00 01/20/2018 23:59:59 CLS Emergency JOANA JOYNER, MICHAEL Hannah [facility] ER WEAK,PAIN ALL OVER [id number] 01/18/2018 08:48:00 01/19/2018 10:24:00 DIS Outpatient CLARENCE NUÑEZ MD [facility] SDC THYROID NODULES [id number] 12/11/2017 17:25:00 12/13/2017 00:01:00 DIS Outpatient ARTEM AGUILAR MD [facility] [id number] 11/30/2017 08:20:00 11/30/2017 23:59:59 CLS Outpatient FLORA PRADO APRN [facility] RAD THYROID NODULE [id number] 11/12/2017 00:10:00 11/12/2017 23:59:59 CLS Preadmit Jenae HARGROVE MD Via [place] [address] CARDIAC REHAB [id number] 11/11/2017 15:07:00 11/11/2017 00:01:00 DIS Outpatient Jenae HARGROVE MD [facility] CARDIAC REHAB [id number] 10/05/2017 15:12:00 10/07/2017 00:01:00 DIS Outpatient Jenae HARGROVE MD [facility] CARDIAC REHAB [id number] 07/06/2017 09:35:00 07/06/2017 23:59:59 CLS Outpatient WALKER PAYAN MD [facility] LAB N39.0 Z011.818 Z01.810 [id number] 06/29/2017 10:00:00 06/29/2017 23:59:59 CLS Outpatient WALKER PAYAN MD [facility] CARD Z01.810 Z01.818 [id number] 04/30/2017 09:55:00 04/30/2017 23:59:59 CLS Outpatient ARTEM AGUILAR MD [facility] RAD SCREENING [id number] 03/30/2017 10:36:00 03/30/2017 23:59:59 CLS Outpatient Jenae HARGROVE MD [facility] CARD SOB R06.02 [id number] 01/19/2017 11:21:00 01/20/2017 11:30:00 DIS Outpatient Jenae HARGROVE MD [facility] CR STATUS POST ACB [id number] 11/28/2016 10:43:00 12/09/2016 00:01:00 DIS Outpatient Jenae HARGROVE MD [facility] CR STATUS POST ACB [id number] 11/25/2016 12:46:00 11/25/2016 23:59:59 CLS Outpatient ARTEM AGUILAR MD [facility] RAD TOBACCO USE,CAD,HTN [id number] 09/26/2016 10:57:00 09/26/2016 14:33:00 DIS Emergency FUAD JOYNER, WILBERT Álvarez [facility] ER LOW BLOOD PRESSURE SOA [id number] 05/29/2016 06:57:00 05/29/2016 15:30:00 DIS Outpatient Jenae HARGROVE MD [facility] CATH ABN, STRESS, SOB, HTN, CAROTID STENOSIS [id number] 05/04/2016 12:20:00 05/07/2016 17:25:00 DIS Inpatient ARTEM AGUILAR MD [facility] 4TH L LEG NUMBNESS AND WEAKNESS,PROBABLE CVA [id number] 06/05/2015 07:20:00 06/05/2015 23:59:59 CLS Outpatient ARTEM AGUILAR MD [facility] RAD SCREENING [id number] 10/25/2014 11:19:00 10/25/2014 23:59:59 CLS Outpatient ARTEM AGUILAR MD [facility] RAD SKULL DEFECT, MULTIPLE MYELOMA,PREP TEST [id number] 10/12/2014 07:41:00 10/12/2014 23:59:59 CLS Outpatient ARTEM AGUILAR MD [facility] RAD SKULL ABNORMALITY [id number] 06/06/2014 11:27:00 06/06/2014 23:59:59 CLS Outpatient JULIANO LUCERO PARK [employer]PERINTENDENT [facility] CARD THYROID NODULE [id number] 05/11/2014 08:48:00 05/11/2014 11:05:00 DIS Emergency FUAD JOYNER, WILBERT Álvarez [facility] ER RIGHT ARM PAIN [id number] 05/08/2014 09:15:00 05/08/2014 23:59:59 CLS Outpatient ARTEM AGUILAR MD [facility] LAB ELEVATED MUCLE ENZYMES,HYPOKALMIA,UTI,DIS MAG META [id number] 05/01/2014 18:00:00 05/05/2014 11:10:00 DIS Inpatient ARTEM AGUILAR MD [facility] CSD HYPOKALEMIA,HYPOGLYCEMIA, SKULL BONE LESION,UTI [id number] 04/12/2014 08:00:00 04/12/2014 23:59:59 CLS Outpatient JULIANO LUCERO [employer]ENT [facility] RAD 6 MONTH FOLLOWUP [id number] 10/05/2013 14:07:00 10/05/2013 23:59:59 CLS Outpatient JULIANO LUECRO [employer] [facility] RAD ABNORMAL MAMMO [id number] 09/26/2013 07:03:00 09/26/2013 23:59:59 CLS Outpatient JULIANO LCUERO PARK [employer]INT[employer]ENT [facility] RAD SCREENING [id number] 03/08/2018 12:00:00 PEN Preadmit SAVANNAH JOYNER, CLARENCE Emanuel [facility] SDC SKIN LESION,GERD [id number] 01/12/2018 05:49:00 Document Registration [id number] 05/01/2014 18:27:00 Document Registration [id number] 05/01/2014 18:27:00 Document Registration [id number] 05/01/2014 18:27:00 Document Registration [id number] 04/07/2012 07:45:00 Document Registration [id number] 12/31/2011 07:29:00 Document Registration [id number] 12/24/2011 06:55:00 Document Registration [id number] 11/25/2011 06:09:00 Document Registration [id number] 07/01/2011 07:30:00 Document Registration [id number] 02/04/2011 07:17:00 Document Registration [id number] 01/29/2011 09:26:00 Document Registration [id number] 09/30/2010 14:14:00 Document Registration [id number] 08/29/2009 09:39:00 Document Registration [id number] 01/08/2009 09:07:00 Document Registration [id number] 04/14/2017 14:56:08 04/14/2017 23:59:59 [facility] Outpatient
[2018-03-08] MEDS ORDERED: FAMOTIDINE 20MG/2ML IV (PEPCID) IV ONE (11:00)
[2018-03-08] MEDS ORDERED: ceFAZolin 2 GM IV Premixed 50 ML IV ONE (11:00)
[2018-03-08] MEDS ORDERED: LIDOCAINE PF 2% 2 ML (XYLOCAINE) VIAL ONE (11:13)
[2018-03-08] MEDS ORDERED: PROPOFOL INJECTION 50 ML IV ONE (11:13)
[2018-03-08] MEDS ORDERED: MIDAZOLAM 2 MG/2 ML (VERSED) VIAL ONE (11:14)
[2018-03-08] MEDS ORDERED: LACTATED RINGERS 1,000 ML IV PRN (11:20)
[2018-03-08] MEDS ORDERED: BUP/EPI 0.5% 1:200,000 (SENSORCAINE) 30 ML VIAL ONE (11:32)
--- NOTE | 2018-03-08 13:03 | Progress Note-Pre Operative ---
Pre-Operative Progress Note H&P Reviewed The H&P was reviewed, patient examined and no changes noted. Date Seen by Provider: Feb 09, 2018 Time Seen by Provider: 11:20 Date H&P Reviewed: Mar 08, 2018 Time H&P Reviewed: 13:03 Pre-Operative Diagnosis: skin lesion left.Dysphagia CLARENCE NUÑEZ MD Mar 08, 2018 13:03
--- NOTE | 2018-03-08 14:34 | Discharge Inst-Simple/Standard ---
Discharge Inst-Standard Discharge Medications New, Converted or Re-Newed RX: Other Patient Instructions/Follow Up Plan of Care/Instructions/FU: To hold Xarelto until Thursday . Follow-up with my nurse in 10 days for suture removal Activity as Tolerated: Yes Discharge Diet: Soft Diet CLARENCE NUÑEZ MD Mar 08, 2018 14:34
[2018-03-08 14:50] VITALS: BP 141/74
--- NOTE | 2018-03-08 15:03 | Anesthesia-General Post-Op ---
MAC Patient Condition Mental Status/LOC: Same as Preop Cardiovascular: Satisfactory Nausea/Vomiting: Absent Respiratory: Satisfactory Pain: Controlled Complications: Absent Post Op Complications Complications None Follow Up Care/Instructions Patient Instructions None needed. Anesthesiology Discharge Order Discharge Order Patient is doing well, no complaints, stable vital signs, no apparent adverse anesthesia problems. No complications reported per nursing. TRACY FOWLER CRNA Mar 08, 2018 15:03
[2018-03-08 15:20] VITALS: BP 130/69
--- NOTE | 2018-03-08 15:38 | Operative Report ---
Operative Report Date of Procedure/Surgery Mar 08, 2018 Surgeon (s) CLARENCE NUÑEZ MD Building Service Worker (s): N/A Post-Operative Diagnosis Skin lesion dorsum of left foot Distal esophageal stricture Procedure Performed Excision of skin lesion dorsum of left foot EGD with balloon dilatation Description of Procedure Anesthesia Type: MAC Estimated blood loss (mL): Minimal Specimen(s) collected/removed Skin lesion Description of the Procedure Indication for the procedures: This lady was scheduled to undergo an upper endoscopy to evaluate dysphagia. She requested excision of a dark lesion over the dorsum of the left foot under the same anesthetic. I agreed to do so. Informed consent was obtained after reviewing the procedures in detail. Description of the procedures: She was placed supine on the operative table and our BAND SCROLL SAW OPERATOR administered sedation, monitoring her vital signs. Ancef was administered intravenously as prophylaxis against wound infection. Excision of skin lesion from the dorsum of left foot: After adequate antiseptic progression, local anesthesia was achieved using 0.5 percent Marcaine with epinephrine. An elliptical incision about 1 cm in length by 5 mm in width was made and the skin lesion excised down to the subcutaneous tissue. The defect was closed using a 0 nylon, in an interrupted fashion. Tissue was sent for histologic examination. Upper endoscopy/balloon dilatation: The flexible gastroscope was introduced down the esophagus, where a stricture was encountered. Stomach and duodenum were normal. There was dilated to 19 mm using a balloon. She tolerated the procedures well and was taken back to the nursing area in a stable condition. Impression: Dysphagia due to a distal esophageal stricture. Balloon dilatation completed. Findings of the Procedure See op report Allergies and Home Medications Allergies Coded Allergies: No Known Drug Allergies (Unverified , 05/01/14) Home Medications Aspirin 81 Mg Tablet.dr, 81 MG PO DAILY, (Reported) Calcium Carbonate 500 Mg Tablet, 500 MG PO BID, (Reported) Cholecalciferol (Vitamin D3) 2,000 Unit Tablet, 2,000 UNIT PO DAILY, (Reported) Docusate Sodium 100 Mg Capsule, 100 MG PO BID, (Reported) Ferrous Sulfate 325 Mg Tablet.dr, 325 MG PO BID, (Reported) Glimepiride 2 Mg Tablet, 2 MG PO DAILY, (Reported) Levothyroxine Sodium 100 Mcg Tablet, 100 MCG PO DAILY, (Reported) Metoprolol Tartrate 25 Mg Tablet, 12.5 MG PO BID, (Reported) take 1/2 of 25mg tab Olmesartan Medoxomil 40 Mg Tablet, 40 MG PO DAILY, (Reported) Rosuvastatin Calcium 20 Mg Tablet, 20 MG PO MoWeFr, (Reported) Ubidecarenone 200 Mg Capsule, 200 MG PO DAILY, (Reported) Patient Home Medication List Home Medication List Reviewed: Yes CLARENCE NUÑEZ MD Mar 08, 2018 15:38
== END 2018-03-08 16:00 | disposition home or self-care (01) ==
LOC: SDC 10:12
PROVIDERS: ATTEND Surgery
DX: K22.2 Esophageal obstruction (principal); D23.72 Other benign neoplasm of skin of left lower limb, including hip; I25.10 Atherosclerotic heart disease of native coronary artery without angina pectoris; I10 Essential (primary) hypertension; E78.5 Hyperlipidemia, unspecified; I73.9 Peripheral vascular disease, unspecified; I69.354 Hemiplegia and hemiparesis following cerebral infarction affecting left non-dominant side; E11.9 Type 2 diabetes mellitus without complications; Z86.718 Personal history of other venous thrombosis and embolism; Z79.899 Other long term (current) drug therapy; Z79.84 Long term (current) use of oral hypoglycemic drugs; Z79.82 Long term (current) use of aspirin; Z95.1 Presence of aortocoronary bypass graft
CPT/HCPCS: 82962; 87081; 88305; 88341; 88342

== ENCOUNTER → 2018-05-03 | Outpatient (CLI) | payer MEDICARE, OTHER ==
--- NOTE | 2018-05-03 13:58 | Diagnostic Imaging Report ---
Indication: Routine screening. Comparison is made with prior exam from 04/30/2017 and 06/05/2015. 2-D and 3-D bilateral screening mammography was performed with CAD. Scattered fibroglandular densities are identified bilaterally. There are benign calcifications bilaterally. A marker clip in the upper right breast is again noted. No dominant mass or malignant appearing microcalcifications are seen. The axillae are unremarkable. Impression: BI-RADS category 2 No mammographic features suspicious for malignancy are identified. ACR BI-RADS Category 2: Benign findings. Result letter will be mailed to the patient. Note: At least 10% of breast cancer is not imaged by mammography. Dictated by: Dictated on workstation # [id number]
== END ==
LOC: RAD 11:21
PROVIDERS: ATTEND Family Medicine
DX: Z12.31 Encounter for screening mammogram for malignant neoplasm of breast (principal)
CPT/HCPCS: 77067

== ENCOUNTER → 2019-04-22 | Outpatient (CLI) | payer MEDICARE, OTHER ==
[~2019-04-22] MED LIST changes: -AMLO5TAB7 PO; +AMLO5TAB9 PO; +CHOL200014 PO; -CHOL200085 PO; +LOSA100T57 PO; -LOSA100T8 PO; +LOSA50TA63 PO; -LOSA50TA7 PO; -RIVA20TA PO; +RIVA20TA2 PO; -ROSU20TA31 PO; +ROSU20TA32 PO
== END ==
LOC: CARD 12:17
PROVIDERS: ATTEND Internal Medicine Interventional Cardiology
DX: I51.7 Cardiomegaly (principal); I25.10 Atherosclerotic heart disease of native coronary artery without angina pectoris; I10 Essential (primary) hypertension; E78.5 Hyperlipidemia, unspecified
CPT/HCPCS: 93306

== ENCOUNTER → 2019-05-09 | Outpatient (CLI) | payer MEDICARE, OTHER ==
[~2019-05-09] MED LIST changes: -GLIM2TAB PO; +GLIM2TAB2 PO
--- NOTE | 2019-05-09 13:01 | Diagnostic Imaging Report ---
INDICATION: Screening. TECHNIQUE: The current study was also evaluated with a Computer Aided Detection (CAD) system. 3D Tomographic imaging was also performed. COMPARISON: 05/03/2018, 04/30/2017, and 06/05/2015. FINDINGS: There are scattered fibroglandular densities bilaterally. There are benign type calcifications in both breasts. There is no dominant mass, spiculated lesion, or suspicious calcification identified. The skin, nipples, and axillae are unremarkable. IMPRESSION: Benign findings. ACR BI-RADS Category 2: Benign findings. Result letter will be mailed to the patient. Note: At least 10% of breast cancer is not imaged by mammography. Dictated by: Dictated on workstation # [id number]
== END ==
LOC: RAD 11:10
PROVIDERS: ATTEND Family Medicine
DX: Z12.31 Encounter for screening mammogram for malignant neoplasm of breast (principal)
CPT/HCPCS: 77067

== ENCOUNTER → 2019-09-20 | Outpatient (CLI) | payer MEDICARE, OTHER ==
[~2019-09-20] MED LIST changes: -GLIM2TAB2 PO; +GLIM2TAB4 PO
--- NOTE | 2019-09-20 11:30 | Diagnostic Imaging Report ---
Indication: Left knee pain 3 views of the left knee show no fracture, dislocation or other acute abnormalities. IMPRESSION: Negative left knee Dictated by: Dictated on workstation # [id number]
--- NOTE | 2019-09-20 11:58 | Diagnostic Imaging Report ---
INDICATION: Left hip pain. COMPARISON: None available. TECHNIQUE: 2 views of the left hip were obtained. FINDINGS: Femoral heads remain spherical without features of osteonecrosis. Mild degenerative arthritis of left hip is characterized by nonuniform joint space narrowing in the superior aspect, along with marginal osteophytes of the anterior femoral head neck junction. Vascular stent is noted. No abnormal soft tissue mineralizations outside of vascular calcifications. No fracture. IMPRESSION: 1. Mild degenerative arthritis of left hip. Dictated by: Dictated on workstation # [id number]
== END ==
LOC: RAD 10:51
PROVIDERS: ATTEND Family Medicine
DX: M16.12 Unilateral primary osteoarthritis, left hip (principal); M25.562 Pain in left knee
CPT/HCPCS: 73502; 73562

== ENCOUNTER → 2019-12-19 | Outpatient (CLI) | payer MEDICARE, OTHER | LOC: LABNPT 06:41 | PROVIDERS: ATTEND Family Medicine | DX: Z53.9 Procedure and treatment not carried out, unspecified reason (principal); R05 Cough; R09.89 Other specified symptoms and signs involving the circulatory and respiratory systems ==

== ENCOUNTER → 2020-07-24 | Outpatient (CLI) | payer MEDICARE, OTHER ==
[~2020-07-24] MED LIST changes: +AMLO-250 PO; -AMLO5TAB9 PO; +ASPI-1238 PO; -ASPI-983 PO
--- NOTE | 2020-07-24 11:29 | Diagnostic Imaging Report ---
INDICATION: DYSPNEA ON EXERTION PAST HX OF TOBACCOISM COMPARISON: 01/20/2018. FINDINGS: Frontal and lateral views of the chest demonstrate normal heart size and pulmonary vascularity. The lungs are clear. There are no signs of infiltrate, pleural effusions or pneumothoraces. The visualized osseous structures show no acute abnormalities. Sternotomy wires and calcified aortic atherosclerosis are noted. IMPRESSION: 1. No acute process. No signs of infiltrates, effusions or pneumothoraces. Dictated by: Dictated on workstation # [id number]
== END ==
LOC: RAD 11:08
PROVIDERS: ATTEND Family Medicine
DX: R06.09 Other forms of dyspnea (principal); Z87.891 Personal history of nicotine dependence
CPT/HCPCS: 71046

== ENCOUNTER → 2020-09-25 | Outpatient (CLI) | payer MEDICARE, OTHER ==
--- NOTE | 2020-09-25 12:29 | Diagnostic Imaging Report ---
Indication: Routine screening. Comparison is made with prior mammogram 05/09/2019 and 05/03/2018. 2-D and 3-D bilateral screening mammography was performed with CAD. Scattered fibroglandular densities are identified bilaterally. A biopsy clip in the right breast is again noted. Both breasts demonstrate a fibronodular parenchymal pattern. No spiculated mass or malignant appearing microcalcifications are seen. Axillae are unremarkable. IMPRESSION: BI-RADS Category 2 No mammographic features suspicious for malignancy are identified. ACR BI-RADS Category 2: Benign findings. Result letter will be mailed to the patient. Note: At least 10% of breast cancer is not imaged by mammography. Dictated by: Dictated on workstation # [id number]
--- NOTE | 2020-09-25 13:08 | Diagnostic Imaging Report ---
INDICATION: Postmenopausal state COMPARISON: None available FINDINGS: AP Spine L1-L4: [BMD (g/cm2): 0.834] [T-Score: -3.0] [Z-Score: -2.5] [BMD Previous: na] [BMD % Change: na] LT Hip Neck: [BMD (g/cm2): 0.599] [T-Score: -3.2] [Z-Score: -2.2] LT Hip Total: [BMD (g/cm2):0.631] [T-Score:-3.0] [Z-Score: -2.3] [BMD Previous: na] [BMD % Change: na] RT Hip Neck: [BMD (g/cm2):0.627] [T-Score:-3.0] [Z-Score:-2.0] RT Hip Total: [BMD (g/cm2):0.693] [T-score:-2.5] [Z-Score:-1.8] [BMD Previous:na] [BMD % Change:na] *Indicates significant change from prior examination based on 95% confidence level. World Health Organization criteria for BMD interpretation classify patients as Normal (T-score at or above -1.0), Osteopenic (T-score between -1.0 and -2.5) or Osteoporotic (T-score at or below -2.5). LIMITATIONS AND MODIFICATION: None. IMPRESSION: 1. Osteoporosis. 2. Baseline examination. 3. See below National Osteoporosis Foundation guidelines on when to potentially initiate pharmacologic therapy. Based on the National Osteoporosis Foundation Guidelines, pharmacologic treatment should be initiated in any of the following, unless clinical conditions suggest otherwise: * Any patient with prior fragility fracture of the hip or vertebrae. A spine fracture indicates 5X risk for subsequent spine fracture and 2X risk for subsequent hip fracture. * Osteoporosis (T-score <-2.5). * Postmenopausal women and men age 50 and older with low bone mass/osteopenia (T-score between -1.0 and -2.5) by DXA and 10-year major osteoporotic fracture greater than 20% or a 10-year probability of hip fracture greater than 3%. These fracture risks are supplied above in the FRAX score, if applicable. * Clinician judgement and/or patient preferences may indicate treatment for people with 10-year fracture probabilities above or below these levels. Dictated by: Dictated on workstation # [id number]
== END ==
LOC: RAD 11:15
PROVIDERS: ATTEND Family Medicine
DX: Z12.31 Encounter for screening mammogram for malignant neoplasm of breast (principal); M81.0 Age-related osteoporosis without current pathological fracture; Z78.0 Asymptomatic menopausal state
CPT/HCPCS: 77063; 77067; 77080

== ENCOUNTER 2021-02-06 22:48 | Inpatient (IN) | payer MEDICARE, OTHER ==
[~2021-02-06] VITALS: Ht 170.2 cm; Wt 111.4 kg
[2021-02-06] MEDS ORDERED: NS IV 1000 ML 1,000 ML IV SCH (23:15)
[2021-02-06 23:43] LABS: BASOPHILS % (AUTO) 0 % (0-10); EOSINOPHILS % (AUTO) 0 % (0-10); HEMATOCRIT 42 % (35-52); HEMOGLOBIN 13.8 g/dL (11.5-16.0); LYMPHOCYTES # (AUTO) 0.8 10^3/uL (1.0-4.0); LYMPHOCYTES % (AUTO) 8 % (12-44); MEAN CORPUSCULAR HEMOGLOBIN 30 pg (25-34); MEAN CORPUSCULAR HGB CONC 33 g/dL (32-36); MEAN CORPUSCULAR VOLUME 91 fL (80-99); MEAN PLATELET VOLUME 9.6 fL (9.0-12.2); MONOCYTES # (AUTO) 0.7 10^3/uL (0.0-1.0); MONOCYTES % (AUTO) 7 % (0-12); NEUTROPHILS % (AUTO) 85 % (42-75); PLATELET COUNT 256 10^3/uL (130-400); WHITE BLOOD COUNT 10.6 10^3/uL (4.3-11.0)
--- NOTE | 2021-02-06 23:58 | ED Respiratory ---
General Stated Complaint: SOA / FEVER Source: patient Exam Limitations: no limitations History of Present Illness Date Seen by Provider: Feb 06, 2021 Time Seen by Provider: 23:11 Initial Comments Patient to the ER by private conveyance from home with chief complaint of about a week or 2 of progressively worsening shortness of air. No cough that she had a fever tonight per staff 1-2.7. She denies a history of COPD but she has an albuterol inhaler that she uses occasionally. She quit smoking in 2016. She does not require oxygen at baseline. She denies any sick contacts. Says she has been feeling more weak as of lately. She has a history of stents in her leg as well as a femoropopliteal bypass, coronary artery disease with bypass and stents as well as carotid endarterectomies bilaterally. She is not having any chest pain. She has not had COVID-19 vaccinations. She is denying any nausea vomiting diarrhea. Primary care by Dr. Fulton. She has diabetes controlled by diet. She says she has a history of rhabdomyolysis and is on statin still. Allergies and Home Medications Allergies Coded Allergies: No Known Drug Allergies (Unverified , 05/01/14) Patient Home Medication List Home Medication List Reviewed: Yes Aspirin (Aspirin EC) 81 Mg Tablet., 81 MG PO DAILY, (Reported) Entered as Reported by: JERMAIN JUAREZ on 05/29/16 0900 Calcium Carbonate (Calcium) 500 Mg Tablet, 500 MG PO BID, (Reported) Entered as Reported by: RED TORRES on 01/12/18 1626 Cholecalciferol (Vitamin D3) (Vitamin D) 2,000 Unit Tablet, 2,000 UNIT PO DAILY, (Reported) Entered as Reported by: RED TORRES on 01/12/18 1616 Docusate Sodium (Colace) 100 Mg Capsule, 100 MG PO BID, (Reported) Entered as Reported by: RED TORRES on 01/12/18 1616 Ferrous Sulfate (Ferrous Sulfate) 325 Mg Tablet., 325 MG PO BID, (Reported) Entered as Reported by: RED TORRES on 01/12/18 1626 Glimepiride (Glimepiride) 2 Mg Tablet, 2 MG PO DAILY, (Reported) Entered as Reported by: RED TORRES on 01/12/18 1626 Levothyroxine Sodium (Levothyroxine Sodium) 100 Mcg Tablet, 100 MCG PO DAILY, (Reported) Entered as Reported by: RED TORRES on 03/05/18 1014 Metoprolol Tartrate (Metoprolol Tartrate) 25 Mg Tablet, 12.5 MG PO BID, (Reported) Entered as Reported by: RED TORRES on 01/12/18 1616 Olmesartan Medoxomil (Olmesartan Medoxomil) 40 Mg Tablet, 40 MG PO DAILY, ( Reported) Entered as Reported by: RED TORRES on 01/12/18 1616 Rosuvastatin Calcium (Rosuvastatin Calcium) 20 Mg Tablet, 20 MG PO MoWeFr, (Reported) Entered as Reported by: RED TORRES on 03/05/18 1019 Ubidecarenone (Co Q-10) 200 Mg Capsule, 200 MG PO DAILY, (Reported) Entered as Reported by: JERMAIN JUAREZ on 05/29/16 0900 Review of Systems Review of Systems Constitutional: chills, fever, malaise EENTM: No ear discharge, No ear pain Respiratory: No cough, No phlegm; short of breath Cardiovascular: No chest pain; Hx of Intervention; No palpitations; vascular heart diseas Gastrointestinal: No abdominal pain, No constipation, No diarrhea, No nausea Genitourinary: No discharge, No dysuria Musculoskeletal: see HPI; No back pain, No joint pain; muscle pain Skin: No change in color, No dryness Psychiatric/Neurological: Denies Anxiety, Denies Depressed All Other Systems Reviewed Negative Unless Noted: Yes Past [id number] Hx Patient Social History Tobacco Use?: No Smoking Status: Former Smoker Use of E-Cig and/or Vaping dev: No Substance use?: No Immunizations Up To Date Tetanus Booster (TDap): More than 5yrs PED Vaccines UTD: No Seasonal Allergies Seasonal Allergies: No Past Medical History Surgeries: Yes (BREAST BX, CAROTID R, Fempop on L leg) Breast, CABG, Thyroidectomy, Tonsillectomy, Vascular Surgery Respiratory: No Currently Using CPAP: No Currently Using BIPAP: No Cardiac: Yes Coronary Artery Disease, Deep Vein Thrombosis, Heart Attack, High Cholesterol, Hypertension Neurological: Yes (MILD LT SIDE WEAKNESS) Stroke Reproductive Disorders: No Female Reproductive Disorders: Denies Sexually Transmitted Disease: No HIV/AIDS: No Genitourinary: No Gastrointestinal: No Musculoskeletal: No Endocrine: Yes (thyroid nodules, THYROIDECTOMY) Diabetes, Non-Insulin dep Loss of Vision: Denies Hearing Impairment: Bilateral Hearing Aide Cancer: No Psychosocial: No Integumentary: No Blood Disorders: Yes (dvt, anemia) Adverse Reaction/Blood Tranf: No Family Medical History Cardiovascular disease 19 FATHER, Onset:Unknown Completed stroke 19 FATHER, Onset:60 years & older Diabetes mellitus 19 FATHER, Onset:50's - 60 Hypertension 19 FATHER, Onset:Unknown Kidney disease G8 BROTHER, Onset:[place] No Family History of: AIDS Abdominal aortic aneurysm Elmore's disease Alcoholism Alzheimer's disease Aphasia Arthritis Asthma Cancer of mouth Cataracts Colon cancer Congenital disease Congenital heart disease Coronary thrombosis Cystic fibrosis Deafness or hearing loss Dementia Drug abuse Dysphasia Fibrocystic disease of breast Gastroenteritis Glaucoma Headache disorder Hypercholesterolemia Infertility Myocardial infarction Neoplasm Not obtainable due to adoption Osteoporosis Parkinson's disease Prostate cancer Psychosocial problem Respiratory disorder Seizure disorder Severe allergy Thyroid disease Tuberculosis Visual disorder Heart Disease, Cancer, Hypertension, Stroke, Other Conditions/Hx Physical Exam Capillary Refill : Height: 5'7.00" Weight: 214lbs. 7.0oz. [id number]; 33.6 BMI Method:Stated General Appearance: WD/WN, mild distress Eyes: Bilateral Eye Normal Inspection, Bilateral Eye PERRL, Bilateral Eye EOMI HEENT: PERRL/EOMI, pharynx normal Neck: full range of motion, normal inspection Respiratory: no respiratory distress (94 to 96% on room air nonlabored breathing 18 to 20 breaths/min.), no accessory muscle use, crackles (Few left base), wheezing (Left expiratory) Cardiovascular: normal peripheral pulses, regular rate, rhythm, no edema, tachycardia (110) Gastrointestinal: normal bowel sounds, non tender, soft Extremities: normal range of motion, non-tender, normal capillary refill Neurologic/Psychiatric: alert, normal mood/affect Skin: normal color, warm/dry Focused Exam Lactate Level 02/06/21 23:25: Lactic Acid Level 0.98 Lactic Acid Level Laboratory Tests Test 02/06/21 23:25 Lactic Acid Level 0.98 MMOL/L (0.50-2.00) Progress/Results/Core Measures Suspected Sepsis SIRS Temperature: Pulse: Respiratory Rate: Laboratory Tests 02/06/21 23:25: White Blood Count 10.6 Blood Pressure / Mean: 02/06/21 23:25: Lactic Acid Level 0.98 Laboratory Tests 02/06/21 23:25: Creatinine 1.03, INR Comment 2.0H, Platelet Count 256, Total Bilirubin 0.9 Results/Orders Lab Results Laboratory Tests Test 02/06/21 23:25 02/07/21 00:35 Range/Units White Blood Count 10.6 4.3-11.0 10^3/uL Red Blood Count 4.58 3.80-5.11 10^6/uL Hemoglobin 13.8 11.5-16.0 g/dL Hematocrit 42 35-52 % Mean Corpuscular Volume 91 80-99 fL Mean Corpuscular Hemoglobin 30 25-34 pg Mean Corpuscular Hemoglobin Concent 33 32-36 g/dL Red Cell Distribution Width 13.3 10.0-14.5 % Platelet Count 256 130-400 10^3/uL Mean Platelet Volume 9.6 9.0-12.2 fL Immature Granulocyte % (Auto) 0 % Neutrophils (%) (Auto) 85 H 42-75 % Lymphocytes (%) (Auto) 8 L 12-44 % Monocytes (%) (Auto) 7 0-12 % Eosinophils (%) (Auto) 0 0-10 % Basophils (%) (Auto) 0 0-10 % Neutrophils # (Auto) 9.0 H 1.8-7.8 10^3/uL Lymphocytes # (Auto) 0.8 L 1.0-4.0 10^3/uL Monocytes # (Auto) 0.7 0.0-1.0 10^3/uL Eosinophils # (Auto) 0.0 0.0-0.3 10^3/uL Basophils # (Auto) 0.0 0.0-0.1 10^3/uL Immature Granulocyte # (Auto) 0.0 0.0-0.1 10^3/uL Prothrombin Time 23.5 H 12.2-14.7 SEC INR Comment 2.0 H 0.8-1.4 Activated Partial Thromboplast Time 41 H 24-35 SEC Sodium Level 137 135-145 MMOL/L Potassium Level 4.0 3.6-5.0 MMOL/L Chloride Level 104 98-107 MMOL/L Carbon Dioxide Level 20 L 21-32 MMOL/L Anion Gap 13 5-14 MMOL/L Blood Urea Nitrogen 14 7-18 MG/DL Creatinine 1.03 0.60-1.30 MG/DL Estimat Glomerular Filtration Rate 53 BUN/Creatinine Ratio 14 Glucose Level 175 H 70-105 MG/DL Lactic Acid Level 0.98 0.50-2.00 MMOL/L Calcium Level 9.3 8.5-10.1 MG/DL Corrected Calcium 9.3 8.5-10.1 MG/DL Total Bilirubin 0.9 0.1-1.0 MG/DL Aspartate Amino Transf (AST/SGOT) 14 5-34 U/L Alanine Aminotransferase (ALT/SGPT) 15 0-55 U/L Alkaline Phosphatase 101 40-136 U/L Total Creatine Kinase 70 29-168 U/L Total Protein 7.3 6.4-8.2 GM/DL Albumin 4.0 3.2-4.5 GM/DL Influenza Type A (RT-PCR) Not Detected Not Detecte Influenza Type B (RT-PCR) Not Detected Not Detecte SARS-CoV-2 RNA (RT-PCR) Not Detected Not Detecte Urine Color YELLOW Urine Clarity CLEAR Urine pH 7.0 5-9 Urine Specific [place] 1.015 L 1.016-1.022 Urine Protein TRACE H NEGATIVE Urine Glucose (UA) NEGATIVE NEGATIVE Urine Ketones NEGATIVE NEGATIVE Urine Nitrite NEGATIVE NEGATIVE Urine Bilirubin NEGATIVE NEGATIVE Urine Urobilinogen 1.0 < = 1.0 MG/DL Urine Leukocyte Esterase TRACE H NEGATIVE Urine RBC (Auto) 1+ H NEGATIVE Urine RBC 2-5 H /HPF Urine WBC 2-5 /HPF Urine Squamous Epithelial Cells 0-2 /HPF Urine Crystals NONE /LPF Urine Bacteria LARGE H /HPF Urine Casts NONE /LPF Urine Mucus NEGATIVE /LPF Urine Culture Indicated CULTURE PENDING My Orders Orders - SOCORRO COUCH Cbc With Automated Diff (02/06/21 23:10) Comprehensive Metabolic Panel (02/06/21 23:10) Blood Culture (02/06/21 23:10) Sputum Culture (02/06/21 23:10) Urinalysis (02/06/21 23:10) Urine Culture (02/06/21 23:10) Protime With Inr (02/06/21 23:10) Partial Thromboplastin Time (02/06/21 23:10) Ed Iv/Invasive Line Start (02/06/21 23:10) Ed Iv/Invasive Line Start (02/06/21 23:10) Vital Signs Adult Sepsis Patie Q15M (02/06/21 23:10) O2 (02/06/21 23:10) Remove Rings In Anticipation O (02/06/21 23:10) Lactic Acid Analyzer (02/06/21 23:10) Ns Iv 1000 Ml (Sodium Chloride 0.9%) (02/06/21 23:15) Covid 19 Inhouse Test (02/06/21 23:10) Influenza A And B By Pcr (02/06/21 23:10) Isolation Central Supply Req (02/06/21 23:10) Acetaminophen Tablet (Tylenol Tablet) (02/07/21 00:00) Creatine Kinase (02/06/21 23:25) Chest 1 View, Ap/Pa Only (02/07/21 00:01) Rx-Albuterol Inhaler (Rx-Ventolin Hfa In (02/07/21 00:15) Medications Given in ED Current Medications Medications Dose Ordered Sig/Rosaura Route Start Time Stop Time Status Last Admin Dose Admin Acetaminophen 1,000 mg ONCE ONCE PO 02/07/21 00:00 02/07/21 00:01 DC 02/07/21 00:03 1,000 MG Vital Signs/I&O Capillary Refill : Progress Note #1: Time: 00:13 Progress Note Fever tachycardia, septic work-up. Rocephin and azithromycin if her Covid swab is negative. 2 puffs by albuterol MDI. Progress Note #2: Time: 00:58 Progress Note With the patient's fever and work of breathing could just be from a urinary tract infection with viral upper respiratory/bronchitis. A repeat 2 view chest x-ray after she is better hydrated may better show a pneumonia if it is there. Plan to give her Rocephin and find her room in the hospital. Diagnostic Imaging Diagonstic Imaging: Xray Plain Films/CT/US/NM/MRI: chest Comments No acute cardiopulmonary process on 1 view chest x-ray. Reviewed: Reviewed by Me Departure Communication (Admissions) Time/Spoke to Admitting Phy: 01:00 Discussed the case with Dr. Fulton and she agrees to admit the patient for sepsis UTI and possible bronchitis versus pneumonia. Two-view chest x-ray in the morning about 7:00 Impression Primary Impression: Sepsis Qualified Codes: A41.9 - Sepsis, unspecified organism Additional Impressions: UTI (urinary tract infection) Qualified Codes: N30.01 - Acute cystitis with hematuria Pneumonia Qualified Codes: J18.9 - Pneumonia, unspecified organism Bronchitis Disposition: ADMITTED INPATIENT Condition: Stable Admissions Decision to Admit Reason: Admit from ER (General) Decision to Admit/Date: Feb 07, 2021 Time/Decision to Admit Time: 00:59 Departure-Patient Inst. Referrals: ARTEM FULTON MD (PCP/Family) Primary Care Physician SOCORRO COUCH Feb 06, 2021 23:58
[2021-02-07] VITALS (7 sets, daily range): BP systolic 58–188; BP diastolic 58–90
[2021-02-07] MEDS ORDERED: ACETAMINOPHEN 500 MG TAB (TYLENOL) PO ONE
[2021-02-07 00:01] LABS: CALCIUM 9.3 MG/DL (8.5-10.1)
[2021-02-07 00:02] LABS: TOTAL PROTEIN 7.3 GM/DL (6.4-8.2)
[2021-02-07 00:04] LABS: BILIRUBIN,TOTAL 0.9 MG/DL (0.1-1.0)
[2021-02-07 00:05] LABS: PROTHROMBIN TIME PATIENT 23.5 SEC (12.2-14.7)
[2021-02-07 00:06] LABS: CREATININE SERUM 1.03 MG/DL (0.60-1.30)
[2021-02-07] MEDS ORDERED: RX-ALBUTEROL INHALER 8.5 GM HFA (PROAIR) IH STA (00:15)
[2021-02-07 00:44] LABS: BILIRUBIN,URINE NEGATIVE (NEGATIVE); CLARITY,URINE CLEAR; COLOR,URINE YELLOW; GLUCOSE, URINE (UA) NEGATIVE (NEGATIVE); KETONES,URINE NEGATIVE (NEGATIVE); LEUKOCYTE ESTERASE ,URINE TRACE (NEGATIVE); NITRITE,URINE NEGATIVE (NEGATIVE); PROTEIN,URINE TRACE (NEGATIVE)
[2021-02-07 00:55] LABS: BACTERIA,URINE LARGE /HPF; SQUAMOUS EPITHELIAL CELL,UR 0-2 /HPF
[2021-02-07] MEDS ORDERED: cefTRIAXone 1,000 MG in WATER (STERILE) FOR INJECTION 10 ML IV ONE (01:15)
[2021-02-07] MEDS ORDERED: AZITHROMYCIN INJECTION 500 MG in NS (IVPB) 250 ML IV ONE (01:15)
[2021-02-07] MEDS ORDERED: RT-ALBUTEROL HFA 8.5 GM INHALER IH PRN (02:30)
[2021-02-07] MEDS: LACTATED RINGERS 1,000 ML IV SCH ×3 (02:48→17:30)
[2021-02-07] MEDS: inSUlin ASPART (NovoLOG) 1 UNIT/0.01 ML (CHARGE PER UNIT) SC SCH ×4 (06:02→21:22)
--- NOTE | 2021-02-07 06:11 | Diagnostic Imaging Report ---
EXAMINATION: Chest 1 view HISTORY: sepsis COMPARISON: 01/19/2018 FINDINGS: Surgical changes from median sternotomy. Heart size and pulmonary vasculature are stable. There are calcifications of the aorta. Stable mild interstitial opacities in the lung bases. No pleural effusion or pneumothorax. The osseous structures are intact. IMPRESSION: 1. Stable mild interstitial opacities in the lung bases which represent atelectasis or scarring. Pulmonary edema or atypical infection could have a similar appearance in the proper clinical setting. Dictated by: Dictated on workstation # [id number]
--- NOTE | 2021-02-07 08:38 | History & Physical ---
History of Present Illness History of Present Illness Date of Admission Feb 07, 2021 at 01:00 I consulted on this patient on 02/07/21 08:38 Attending Physician Artem Fulton MD Admitting Physician Artem Fulton MD Consult Allergies and Home Medications Allergies Coded Allergies: No Known Drug Allergies (Unverified , 05/01/14) Patient Home Medication List Aspirin (Aspirin EC) 81 Mg Tablet.dr, 81 MG PO DAILY, (Reported) Entered as Reported by: JERMAIN JUAREZ on 05/29/16 0900 Calcium Carbonate (Calcium) 500 Mg Tablet, 500 MG PO BID, (Reported) Entered as Reported by: RED TORRES on 01/12/18 1626 Cholecalciferol (Vitamin D3) (Vitamin D) 2,000 Unit Tablet, 2,000 UNIT PO DAILY, (Reported) Entered as Reported by: RED TORRES on 01/12/18 1616 Docusate Sodium (Colace) 100 Mg Capsule, 100 MG PO BID, (Reported) Entered as Reported by: RED TORRES on 01/12/18 1616 Ferrous Sulfate (Ferrous Sulfate) 325 Mg Tablet.dr, 325 MG PO BID, (Reported) Entered as Reported by: RED TORRES on 01/12/18 1626 Glimepiride (Glimepiride) 2 Mg Tablet, 2 MG PO DAILY, (Reported) Entered as Reported by: RED TORRES on 01/12/18 1626 Levothyroxine Sodium (Levothyroxine Sodium) 100 Mcg Tablet, 100 MCG PO DAILY, (Reported) Entered as Reported by: RED TORRES on 03/05/18 1014 Metoprolol Tartrate (Metoprolol Tartrate) 25 Mg Tablet, 12.5 MG PO BID, (Reported) Entered as Reported by: RED TORRES on 01/12/18 1616 Olmesartan Medoxomil (Olmesartan Medoxomil) 40 Mg Tablet, 40 MG PO DAILY, (Reported) Entered as Reported by: RED TORRES on 01/12/18 1616 Rosuvastatin Calcium (Rosuvastatin Calcium) 20 Mg Tablet, 20 MG PO MoWeFr, (Reported) Entered as Reported by: RED TORRES on 03/05/18 1019 Ubidecarenone (Co Q-10) 200 Mg Capsule, 200 MG PO DAILY, (Reported) Entered as Reported by: JERMAIN JUAREZ on 05/29/16 0900 Past Zudkgmh-Odeaep-Gelzju Hx Patient Social History Tobacco Use?: No Smoking Status: Former Smoker Smokeless Tobacco Frequency: Never a User Use of E-Cig and/or Vaping dev: No Use of E-Cig and/or Vaping Dirk: Never a User Substance use?: No Alcohol Use?: No Pt feels they are or have been: No Immunizations Up To Date Date of Influenza Vaccine: Mar 25, 2016 First/Initial COVID19 Vaccinat: NO COVID VACCINE Second COVID19 Vaccination Gavino: NO COVID VACCINE Hepatitis A: No Hepatitis B: No PED Vaccines UTD: No Date of Pneumonia Vaccine: May 03, 2014 Seasonal Allergies Seasonal Allergies: No Current Status status: No status: No Advance Directives: No Communicates: Verbally Primary Language: Jordanian Preferred Spoken Language: Jordanian Is interpretation needed?: No Sensory deficits: Hearing impairment Implanted or Applied Medical D: Stents Past Medical History Surgeries: Breast, CABG, Thyroidectomy, Tonsillectomy, Vascular Surgery Currently Using CPAP: No Currently Using BIPAP: No Coronary Artery Disease, Deep Vein Thrombosis, Heart Attack, High Cholesterol, Hypertension Stroke Sexually Transmitted Disease: No HIV/AIDS: No Diabetes, Non-Insulin dep Loss of Vision: Denies Hearing Impairment: Bilateral Hearing Aide Blood Disorders: Yes (dvt, anemia) Adverse Reaction/Blood Tranf: No Family Medical History Cardiovascular disease 19 FATHER, Onset:Unknown Completed stroke 19 FATHER, Onset:60 years & older Diabetes mellitus 19 FATHER, Onset:50's - 60 Hypertension 19 FATHER, Onset:Unknown Kidney disease G8 BROTHER, Onset: No Family History of: AIDS Abdominal aortic aneurysm German's disease Alcoholism Alzheimer's disease Aphasia Arthritis Asthma Cancer of mouth Cataracts Colon cancer Congenital disease Congenital heart disease Coronary thrombosis Cystic fibrosis Deafness or hearing loss Dementia Drug abuse Dysphasia Fibrocystic disease of breast Gastroenteritis Glaucoma Headache disorder Hypercholesterolemia Infertility Myocardial infarction Neoplasm Not obtainable due to adoption Osteoporosis Parkinson's disease Prostate cancer Psychosocial problem Respiratory disorder Seizure disorder Severe allergy Thyroid disease Tuberculosis Visual disorder Heart Disease, Cancer, Hypertension, Stroke, Other Conditions/Hx Physical Exam Vital Signs Vital Signs - First Documented 02/06/21 23:10 Temp 39.3 Pulse 105 Resp 23 B/P (MAP) 163/84 (110) Pulse Ox 95 O2 Delivery Room Air Capillary Refill : Less Than 3 Seconds Height, Weight, BMI Height: 5'7.00" Weight: 214lbs. 7.0oz. [id number]; 38.45 BMI Method:Stated ARTEM FULTON MD Feb 07, 2021 08:38
--- NOTE | 2021-02-07 08:43 | History & Physical ---
History of Present Illness History of Present Illness Reason for visit/HPI HPI per ER: Patient to the ER by private conveyance from home with chief complaint of about a week or 2 of progressively worsening shortness of air. No cough that she had a fever tonight per staff 1-2.7. She denies a history of COPD but she has an albuterol inhaler that she uses occasionally. She quit smoking in 2016. She does not require oxygen at baseline. She denies any sick contacts. Says she has been feeling more weak as of lately. She has a history of stents in her leg as well as a femoropopliteal bypass, coronary artery disease with bypass and stents as well as carotid endarterectomies bilaterally. She is not having any chest pain. She has not had COVID-19 vaccinations. She is denying any nausea vomiting diarrhea. Primary care by Dr. Fulton. She has diabetes controlled by diet. She says she has a history of rhabdomyolysis and is on statin still. Pt is a 70y/o F with PMH of CAD s/p CABG and hx stroke who presented to the ER last night for cc of generalized weakness that was progressive in onset. Pt states weakness has been progressing over the past couple weeks, she left shaking yesterday am and difficulty ambulating. SOB has been progressing for a 'long time', pt agrees for at least several months. She denies any sputum production, or coughing worse than baseline. Pt is a former smoker but quit several years ago. Pt denies a diagnosis of COPD, but has not undergone a PFT in the past. Pt had a fever in the ER (39.3), was tachycardic, and 95% O2 on room air. Subsequent sepsis eval found a neg CXR, and + u/a. WBC was 10.6 and lactic acid 0.98. Pt COVID-19 and Flu PCR was negative. Pt was then given ceftriaxone and azithromycin and admitted to gen/surg with admitting diagnosis of sepsis 2/2 UTI with bronchitis Vs PNA. Date of Admission Feb 07, 2021 at 01:00 Date Seen by a Provider: Feb 07, 2021 Time Seen by a Provider: 08:10 I consulted on this patient on 02/07/21 08:37 Attending Physician Valentina Fulton MD Admitting Physician Valentina Fulton MD Consult Allergies and Home Medications Allergies Coded Allergies: No Known Drug Allergies (Unverified , 05/01/14) Patient Home Medication List Aspirin (Aspirin EC) 81 Mg Tablet.dr, 81 MG PO DAILY, (Reported) Entered as Reported by: JERMAIN JUAREZ on 05/29/16 0900 Calcium Carbonate (Calcium) 500 Mg Tablet, 500 MG PO BID, (Reported) Entered as Reported by: RED TORRES on 01/12/18 1626 Cholecalciferol (Vitamin D3) (Vitamin D) 2,000 Unit Tablet, 2,000 UNIT PO DAILY, (Reported) Entered as Reported by: RED TORRES on 01/12/18 1616 Docusate Sodium (Colace) 100 Mg Capsule, 100 MG PO BID, (Reported) Entered as Reported by: RED TORRES on 01/12/18 161 Ferrous Sulfate (Ferrous Sulfate) 325 Mg Tablet.dr, 325 MG PO BID, (Reported) Entered as Reported by: RED TORRES on 01/12/18 1626 Glimepiride (Glimepiride) 2 Mg Tablet, 2 MG PO DAILY, (Reported) Entered as Reported by: RED TORRES on 01/12/18 1626 Levothyroxine Sodium (Levothyroxine Sodium) 100 Mcg Tablet, 100 MCG PO DAILY, (Reported) Entered as Reported by: RED TORRES on 03/05/18 1014 Metoprolol Tartrate (Metoprolol Tartrate) 25 Mg Tablet, 12.5 MG PO BID, (Reported) Entered as Reported by: RED TORRES on 01/12/18 1616 Olmesartan Medoxomil (Olmesartan Medoxomil) 40 Mg Tablet, 40 MG PO DAILY, (Reported) Entered as Reported by: RED TORRES on 01/12/18 1616 Rosuvastatin Calcium (Rosuvastatin Calcium) 20 Mg Tablet, 20 MG PO MoWeFr, (Reported) Entered as Reported by: RED TORRES on 03/05/18 1019 Ubidecarenone (Co Q-10) 200 Mg Capsule, 200 MG PO DAILY, (Reported) Entered as Reported by: JERMAIN JUAREZ on 05/29/16 0900 Past Rxfpsgx-Dufmmv-Ftyztu Hx Patient Social History Tobacco Use?: No Smoking Status: Former Smoker Smokeless Tobacco Frequency: Never a User Use of E-Cig and/or Vaping dev: No Use of E-Cig and/or Vaping Dirk: Never a User Substance use?: No Alcohol Use?: No Pt feels they are or have been: No Immunizations Up To Date Date of Influenza Vaccine: Mar 25, 2016 First/Initial COVID19 Vaccinat: NO COVID VACCINE Second COVID19 Vaccination Gavino: NO COVID VACCINE Hepatitis A: No Hepatitis B: No PED Vaccines UTD: No Date of Pneumonia Vaccine: May 03, 2014 Seasonal Allergies Seasonal Allergies: No Current Status status: No status: No Advance Directives: No Communicates: Verbally Primary Language: Syrian Preferred Spoken Language: Syrian Is interpretation needed?: No Sensory deficits: Hearing impairment Implanted or Applied Medical D: Stents Past Medical History Surgeries: Breast, CABG, Thyroidectomy, Tonsillectomy, Vascular Surgery Currently Using CPAP: No Currently Using BIPAP: No Coronary Artery Disease, Deep Vein Thrombosis, Heart Attack, High Cholesterol, Hypertension Stroke Sexually Transmitted Disease: No HIV/AIDS: No Diabetes, Non-Insulin dep Loss of Vision: Denies Hearing Impairment: Bilateral Hearing Aide Blood Disorders: Yes (dvt, anemia) Adverse Reaction/Blood Tranf: No Family Medical History Cardiovascular disease 19 FATHER, Onset:Unknown Completed stroke 19 FATHER, Onset:60 years & older Diabetes mellitus 19 FATHER, Onset:50's - 60 Hypertension 19 FATHER, Onset:Unknown Kidney disease G8 BROTHER, Onset: No Family History of: AIDS Abdominal aortic aneurysm [place]'s disease Alcoholism Alzheimer's disease Aphasia Arthritis Asthma Cancer of mouth Cataracts Colon cancer Congenital disease Congenital heart disease Coronary thrombosis Cystic fibrosis Deafness or hearing loss Dementia Drug abuse Dysphasia Fibrocystic disease of breast Gastroenteritis Glaucoma Headache disorder Hypercholesterolemia Infertility Myocardial infarction Neoplasm Not obtainable due to adoption Osteoporosis Parkinson's disease Prostate cancer Psychosocial problem Respiratory disorder Seizure disorder Severe allergy Thyroid disease Tuberculosis Visual disorder Heart Disease, Cancer, Hypertension, Stroke, Other Conditions/Hx Review of Systems Constitutional: No diaphoresis; fever, malaise, weakness EENTM: hearing loss; No vision loss Respiratory: dyspnea on exertion; No phlegm; short of breath; No wheezing Cardiovascular: No chest pain; Hx of Intervention; No palpitations, No syncope Gastrointestinal: No abdominal pain, No loss of appetite, No nausea, No vomiting Genitourinary: No discharge, No dysuria, No frequency, No incontinence Musculoskeletal: No joint swelling, No muscle pain Skin: No change in color, No lesions Psychiatric/Neurological: Denies Anxiety, Denies Headache; Weakness Physical Exam Vital Signs Vital Signs - First Documented 02/06/21 23:10 Temp 39.3 Pulse 105 Resp 23 B/P (MAP) 163/84 (110) Pulse Ox 95 O2 Delivery Room Air Capillary Refill : Less Than 3 Seconds Height, Weight, BMI Height: 5'7.00" Weight: 214lbs. 7.0oz. 97.020391gc; 38.45 BMI Method:Stated General Appearance: No Apparent Distress, WD/WN HEENT: PERRL/EOMI, Moist Mucous Membranes Neck: Full Range of Motion, Normal Inspection Respiratory: Chest Non Tender, Lungs Clear, No Respiratory Distress, Decreased Breath Sounds Cardiovascular: Regular Rate, Rhythm, No Murmur; No Normal Peripheral Pulses; Other (L sided LE edema, 1/4 dorsalis pedis pulses b/l. ) Gastrointestinal: Normal Bowel Sounds, Non Tender, Soft Rectal: Deferred Back: Normal Inspection, No CVA Tenderness Extremity: No Calf Tenderness; Pedal Edema, Swelling Neurologic/Psychiatric: Alert, Oriented x3, Normal Mood/Affect Skin: Normal Color, Warm/Dry Lymphatic: No Adenopathy Assessment/Plan Assessment and Plan Sepsis, likely 2/2 UTI Vs PNA la 0.98, WBC 10.6 in ER. U/A positive. COVID and FLU PCR neg. CXR neg for infiltrate. Marcano cultures pending. Ceftriaxone and azithromycin. PAD CAD s/p CABG hx of stroke HTN Hypercholesteremia Obesity. 04/2019 echo: 55-65 EF, n/l systolic function. Grade 1 diastolic dysfunction. Careful not to fluid overload pt. Possible COPD Former smoker. Progressive and chronic SOB. Not covid vaccinated. Consider outpt PFT/spirometry. Hypothyroidism psh thyroidectomy. NIDDM DVT prophylaxis: xarelto GI prohyl: probiotic, pepsid. Lines and tubes: 1x PIV. GIORGIO DELGADO MED STUDENT Feb 07, 2021 08:43
--- NOTE | 2021-02-07 09:15 | Diagnostic Imaging Report ---
Indication: Sepsis, bronchitis. Comparison: 07/24/2020 Findings: Frontal and lateral views of the chest demonstrate increasing bilateral pulmonary infiltrates. The heart is enlarged. There is no pneumothorax or effusion. Sternal wires midline. Osseous structures are stable. Impression: Increasing bilateral interstitial infiltrates likely representing acute on chronic CHF versus pneumonia. Followup recommended. Dictated by: Dictated on workstation # [id number]
[2021-02-07] MEDS ORDERED: FUROSEMIDE 40 MG/4 ML INJ (LASIX) IVP ONE (09:30)
[2021-02-07] MEDS ORDERED: IRBE300T17 PO (12:06)
[2021-02-07] MEDS ORDERED: GABA-486 PO (12:06)
[2021-02-07] MEDS ORDERED: FLUT1AER4 INH (12:06)
[2021-02-07] MEDS ORDERED: CHOL200074 PO (12:06)
[2021-02-07] MEDS ORDERED: RIVA20TA PO (12:06)
[2021-02-07] MEDS ORDERED: OMEP20TA7 PO (12:06)
[2021-02-07] MEDS ORDERED: FEXO180T84 PO (12:06)
[2021-02-07] MEDS ORDERED: MTP25TSR PO (12:13)
[2021-02-07] MEDS ORDERED: RIVAROXABAN 20 MG TABLET (XARELTO) PO SCH ×2 (17:00→21:00)
[2021-02-07] MEDS ORDERED: ACETAMINOPHEN 325 MG TABLET PO PRN (17:15)
[2021-02-07] MEDS ORDERED: NON-FORMULARY MEDICATION 1 EA EA (Fexofenadine HCl (Allegra Allergy) 180 MG) PO PRN (17:15)
[2021-02-07] MEDS ORDERED: AVAPRO PO ONE (17:30)
[2021-02-07] MEDS ORDERED: LOSARTAN 100 MG (COZAAR) TABLET PO NR (17:30)
[2021-02-07] MEDS ORDERED: IRBESARTAN 150 MG PO ONE (17:30)
[2021-02-07] MEDS ORDERED: LORATADINE (CLARITIN) 10 MG TAB PO PRN (17:45)
[2021-02-07] MEDS: ACETAMINOPHEN 325 MG TABLET PO PRN (18:05)
[2021-02-07] MEDS ORDERED: AZITHROMYCIN 500 MG/NS 250 ML IVPB IV SCH ×2 (21:00)
[2021-02-07] MEDS ORDERED: cefTRIAXone 1,000 MG/SWFI 10 ML IV PUSH IV SCH ×2 (21:00)
[2021-02-07] MEDS ORDERED: VITAMIN D3 25 MCG (1,000 UNITS) TABLET PO SCH (21:00)
[2021-02-07] MEDS ORDERED: NON-FORMULARY MEDICATION 1 EA EA (Calcium Carbonate (Calcium) 500 MG) PO SCH (21:00)
[2021-02-07] MEDS ORDERED: NON-FORMULARY MEDICATION 1 EA EA (Cholecalciferol (Vitamin D3) (Vitamin D3) 50 MCG) PO SCH (21:00)
[2021-02-07] MEDS: GABAPENTIN 100 MG (NEURONTIN) CAP PO SCH (21:22)
[2021-02-08] MEDS: LACTATED RINGERS 1,000 ML IV SCH (03:57)
[2021-02-08 03:58] VITALS: BP 130/83
[2021-02-08] MEDS: ACETAMINOPHEN 325 MG TABLET PO PRN ×2 (04:10→11:40)
[2021-02-08] MEDS: inSUlin ASPART (NovoLOG) 1 UNIT/0.01 ML (CHARGE PER UNIT) SC SCH ×2 (05:43→11:25)
[2021-02-08] MEDS ORDERED: LEVOTHYROXINE 100 MCG (LEVOTHROID) TAB PO SCH (06:30)
[2021-02-08 07:30] VITALS: BP 117/60
[2021-02-08] MEDS ORDERED: CALCIUM CARBONATE 600 MG (CALCARB) TAB PO SCH (08:00)
[2021-02-08] MEDS: GABAPENTIN 100 MG (NEURONTIN) CAP PO SCH (08:57)
[2021-02-08] MEDS ORDERED: LOSARTAN 100 MG (COZAAR) TABLET PO SCH (09:00)
[2021-02-08] MEDS ORDERED: ASPIRIN E.C. 81 MG (ECOTRIN) TAB PO SCH (09:00)
[2021-02-08] MEDS ORDERED: NON-FORMULARY MEDICATION 1 EA EA (Irbesartan 300 MG) PO SCH (09:00)
[2021-02-08] MEDS ORDERED: CEFD300C3 PO (10:28)
[2021-02-08] MEDS ORDERED: Albuterol Inhaler IH (10:28)
[2021-02-08] MEDS ORDERED: AZIT250T12 PO (10:28)
[2021-02-08] MEDS ORDERED: LACT1CAP87 PO (10:32)
--- NOTE | 2021-02-08 10:34 | Discharge Inst-Simple/Standard ---
Discharge Inst-Standard Reconcile Patient Problems Problems Reviewed?: Yes Discharge Medications New, Converted or Re-Newed RX: Transmitted to Pharmacy Patient Instructions/Follow Up Plan of Care/Instructions/FU: [facility] Activity as Tolerated: Yes Discharge Diet: ADA Diet Return to The Hospital For: ANY CONCERN FOR LIFE THREATENING ILLNESS OR INJURY Medication List: Active Scripts Active Acidophilus Lactobacilli (Lactobacillus Acidophilus) 1 Each Capsule 1 Each PO TID Cefdinir 300 Mg Capsule 300 Mg PO BID [Albuterol Inhaler] 8.5 GM Hfa.aer.ad 0 Gm IH RTQ4HR PRN Azithromycin 250 Mg Tablet 250 Mg PO UD TAKE 2 TABLETS ON DAY ONE THEN TAKE 1 TABLET DAILY FOR FOUR MORE DAYS Reported Metoprolol Succinate 25 Mg Tab.er.24h 37.5 Mg PO BID TAKING 1 AND 1/2 OF 25MG TAB Omeprazole 20 Mg Tablet.dr 20 Mg PO DAILY Carmen Allergy (Fexofenadine HCl) 180 Mg Tablet 180 Mg PO DAILY PRN Xarelto (Rivaroxaban) 20 Mg Tablet 20 Mg PO HS Irbesartan 300 Mg Tablet 300 Mg PO DAILY Fluticasone-Salmeterol 113-14 (Fluticasone/Salmeterol) 1 Each Aer.pow.ba 1 Puff INH BID Gabapentin 100 Mg Capsule 100 Mg PO BID Vitamin D3 (Cholecalciferol (Vitamin D3)) 50 Mcg Capsule 50 Mcg PO HS Rosuvastatin Calcium 20 Mg Tablet 20 Mg PO MON,WED,FRI Levothyroxine Sodium 100 Mcg Tablet 100 Mcg PO DAILY Calcium (Calcium Carbonate) 500 Mg Tablet 500 Mg PO HS Co Q-10 (Ubidecarenone) 200 Mg Capsule 200 Mg PO DAILY Aspirin EC (Aspirin) 81 Mg Tablet. 81 Mg PO DAILY Lab results: Laboratory Tests Test 02/07/21 11:52 02/07/21 15:40 02/07/21 19:26 02/08/21 05:41 Range/Units Glucometer 164 H 134 H 133 H 142 H 70-110 MG/DL My orders: Orders - ARTEM AGUILAR MD Acetaminophen Tablet/Caplet (Tylenol T (02/07/21 17:15) Aspirin Enteric Coated Tablet (Ecotrin T (02/08/21 09:00) Gabapentin Capsule/Tablet (Neurontin Cap (02/07/21 21:00) Levothyroxine Tablet (Synthroid Tablet) (02/08/21 06:30) Metoprolol Succinate (Xl) Tab (Toprol Xl (02/07/21 21:00) (Nf) Calcium Carbonate (Calcium) (02/07/21 21:00) (Nf) Cholecalciferol (Vitamin D3) (Vitam (02/07/21 21:00) (Nf) Fexofenadine Hcl (Carmen Allergy) (02/07/21 17:15) (Nf) Irbesartan (02/08/21 09:00) Acetaminophen Tablet/Caplet (Tylenol T (02/07/21 17:30) Irbesartan (Non-Formulary) (Avapro Table (02/07/21 17:30) Metoprolol Succinate (Xl) Tab (Toprol Xl (02/07/21 17:30) Losartan Tablet (Cozaar Tablet) (02/07/21 17:30) Losartan Tablet (Cozaar Tablet) (02/08/21 09:00) Cholecalciferol Capsule/Tablet (Vitamin (02/07/21 21:00) Loratadine Tablet (Claritin Tablet) (02/07/21 17:45) Calcium Carbonate Tablet (Calcarb 600 Ta (02/08/21 08:00) Attending Discharge Inpt/Inobs (02/08/21 10:23) ARTEM AGUILAR MD Feb 08, 2021 10:30
== END 2021-02-08 11:45 | disposition home or self-care (01) | DRG 871 ==
LOC: EDUNIT# 22:48 → ER 22:49 → 4TH 02-07 01:00
PROVIDERS: ADMIT Family Medicine; ATTEND Family Medicine
DX: A41.9 Sepsis, unspecified organism (principal); J18.9 Pneumonia, unspecified organism; J44.0 Chronic obstructive pulmonary disease with (acute) lower respiratory infection; N39.0 Urinary tract infection, site not specified; Z20.822 Contact with and (suspected) exposure to COVID-19; I25.10 Atherosclerotic heart disease of native coronary artery without angina pectoris; E78.00 Pure hypercholesterolemia, unspecified; I10 Essential (primary) hypertension; E11.9 Type 2 diabetes mellitus without complications; J40 Bronchitis, not specified as acute or chronic; E03.9 Hypothyroidism, unspecified; E11.51 Type 2 diabetes mellitus with diabetic peripheral angiopathy without gangrene; E66.9 Obesity, unspecified; Z79.82 Long term (current) use of aspirin; Z79.899 Other long term (current) drug therapy; Z87.891 Personal history of nicotine dependence; Z95.1 Presence of aortocoronary bypass graft; Z86.718 Personal history of other venous thrombosis and embolism; I25.2 Old myocardial infarction; Z86.73 Personal history of transient ischemic attack (TIA), and cerebral infarction without residual deficits; Z68.38 Body mass index [BMI] 38.0-38.9, adult
CPT/HCPCS: 36415; 71045; 71046; 80053; 81000; 82550; 82947; 83605; 85025; 85610; 85730; 87040; 87077; 87088; 87186; 87636

== ENCOUNTER 2021-04-23 12:00 | Day surgery (SDC) | payer MEDICARE, OTHER ==
[~2021-04-23] VITALS: Ht 170 cm; Wt 112.0 kg
[2021-04-23] VITALS (8 sets, daily range): BP systolic 91–156; BP diastolic 66–88
[2021-04-23 10:43] LABS: HEMATOCRIT 44 % (35-52); HEMOGLOBIN 14.4 g/dL (11.5-16.0); MEAN CORPUSCULAR HEMOGLOBIN 30 pg (25-34); MEAN CORPUSCULAR HGB CONC 33 g/dL (32-36); MEAN CORPUSCULAR VOLUME 93 fL (80-99); MEAN PLATELET VOLUME 10.8 fL (9.0-12.2); PLATELET COUNT 282 10^3/uL (130-400); WHITE BLOOD COUNT 6.8 10^3/uL (4.3-11.0)
[2021-04-23 11:15] LABS: INR 0.9 (0.8-1.4); PROTHROMBIN TIME PATIENT 12.8 SEC (12.2-14.7)
[2021-04-23 11:20] LABS: ALBUMIN 3.8 GM/DL (3.2-4.5); BILIRUBIN,TOTAL 0.5 MG/DL (0.1-1.0); CALCIUM 9.2 MG/DL (8.5-10.1); CREATININE SERUM 0.86 MG/DL (0.60-1.30); POTASSIUM 4.4 MMOL/L (3.6-5.0); TOTAL PROTEIN 6.7 GM/DL (6.4-8.2)
[~2021-04-23 12:00] MED LIST changes: +AZIT250T12 PO; +Albuterol Inhaler IH; +CALC600T91 PO; +CEFD300C3 PO; +CHOL-34 PO; +CHOL200074 PO; +CYAN50009 PO; +FEXO180T84 PO; +FLUT1AER4 INH; +GABA-486 PO; +HEParin (CATH LAB) 2,000 ML IV ONE; +IRBE300T17 PO; +LACT-242 PO; +LACT1CAP87 PO; +LIDOCAINE 1% INJ 20 ML 20 ML VIAL ONE; +MTP25TSR PO; +NS IV 1000 ML 1,000 ML IV SCH; +NS IV 1000 ML 1,000 ML ONE; +OMEP20TA7 PO; +RIVA20TA PO; +UBID100C17 PO; +ZINC50TA51 PO
[2021-04-23] MEDS ORDERED: MIDAZOLAM 5 MG/5 ML (VERSED) VIAL ONE (12:13)
[2021-04-23] MEDS ORDERED: fentaNYL INJ 100 MCG/2 ML AMP ONE (12:13)
--- NOTE | 2021-04-23 13:11 | Discharge Inst-Cardiology ---
Discharge Inst-Cardiac Discharge Medications Continued Medications: Aspirin (Aspirin EC) 81 Mg Tablet.dr 81 MG PO DAILY, TAB Calcium Carbonate (Calcium) 600 Mg Tablet 600 MG PO DAILY, TAB Cholecalciferol (Vitamin D3) (Vitamin D3) 25 Mcg Tablet 50 MCG PO DAILY, TAB Cyanocobalamin (Vitamin B-12) (Vitamin B12) 5,000 Mcg Tab.rapdis 5000 MCG PO DAILY, TAB Fluticasone/Salmeterol (Fluticasone-Salmeterol 113-14) 1 Each Aer.pow.ba 1 PUFF INH BID, EA Gabapentin (Gabapentin) 100 Mg Capsule 100 MG PO TID, CAP Irbesartan (Irbesartan) 300 Mg Tablet 300 MG PO DAILY, TAB Lactobacillus Acidophilus (Acidophilus Probiotic) 1 Each Capsule 3 EACH PO DAILY, CAP Levothyroxine Sodium (Levothyroxine Sodium) 100 Mcg Tablet 100 MCG PO DAILY, TAB Metoprolol Succinate (Metoprolol Succinate) 25 Mg Tab.er.24h 37.5 MG PO BID, TAB TAKING 1 AND 1/2 OF 25MG TAB Omeprazole (Omeprazole) 20 Mg Tablet.dr 20 MG PO DAILY, TAB Rivaroxaban (Xarelto) 20 Mg Tablet 20 MG PO HS, TAB Rosuvastatin Calcium (Rosuvastatin Calcium) 20 Mg Tablet 20 MG PO MON,WED,FRI, TAB Ubidecarenone (Coq-10) 100 Mg Capsule 100 MG PO DAILY, CAP Zinc Amino Acid Chelate (Zinc) 50 Mg Tablet 100 MG PO DAILY, TAB LUIZ WOLFE MD [facility] CCDS Apr 23, 2021 13:11
--- NOTE | 2021-04-23 13:12 | Discharge Inst-Post CATH ---
Discharge Inst-CATH/EP Post Cardiac Cath/EP D/C Inst Follow Up/Plan F/u with Dr Hadley in 2 weeks ACTIVITY * Go Home directly and rest. * Limit activity of the leg (or wrist if it was used) for 7 days including aerobics, swimming, jogging, bicycling, etc. * Restrict stair-climbing for 7 days if possible, if not, climb up with your non -cath leg, then bring together on the same step. * Avoid lifting, pushing, pulling or excessive movement of the affected extr emity for 7 days. * Customary sexual activity may be resumed after 2 days-use caution not to use a position that strains or causes pain to the affected extremity. * No driving for 24 hours. * NO SMOKING. * Avoid straining for bowel movements for 7 days. * Gentle walking on level ground is allowed. * Returning to work will depend on the type of procedure and the results. Your doctor will discuss this with you. CALL YOUR DOCTOR FOR ANY OF THE FOLLOWING: *If bleeding from the puncture site occurs- Apply gentle pressure to site with clean cloth and call your doctor or EMS. * If a knot or lump forms under the skin, increases in size, or causes pain. * If bruising appears to be worsening or moving further down your leg instead of disappearing. * Temperature above 101 F. CARE OF YOUR GROIN INCISION; * Bruising or purple discoloration of the skin near the puncture site is common. * You may shower only, no bathtub bathing for 5 days. Be careful to avoid slipping as your leg may feel stiff. * If a closure device was used on your femoral artery, please see the attached guide regarding care of the device and your leg. * Leave dressing on FOR 24 hours. CARE OF YOUR WRIST INCISION; * Bruising or purple discoloration of the skin near the puncture site is common. * You may shower. * DO NOT submerge wrist. * Leave dressing on FOR 24 hours. LUIZ HADLEY MD [facility]S Apr 23, 2021 13:12
[2021-04-23] MEDS ORDERED: NS IV 1000 ML 1,000 ML IV SCH (13:15)
[2021-04-23] MEDS ORDERED: PATIENT MAY USE OWN MEDS, ALL PO SCH (13:15)
--- NOTE | 2021-04-23 16:00 | CARDIAC CATHETERIZATION ---
DATE OF SERVICE: 04/23/2021 CARDIAC CATHETERIZATION REPORT The patient is a 71-year-old lady who is known to have coronary artery disease. She has had left internal mammary artery graft to the left anterior descending artery. 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 West. At that time, she was noted to have localized apical hypokinesis and akinesis. Left ventricular ejection fraction was reported to be 45%. She has lately been experiencing increasing shortness of breath. Repeat cardiac catheterization was recommended for further evaluation. Informed consent was obtained. DESCRIPTION OF PROCEDURE: She was brought to the cardiac catheterization laboratory in a fasting state. Right groin was prepared and draped in the usual sterile fashion. Lidocaine 1% was used for local anesthesia. Modified Seldinger technique was used to advance a 5-Vincentian sheath in right femoral artery, 5-Vincentian JL4 catheter used for left coronary angiography, 5-Vincentian JR4 catheter was used for right coronary angiography, 5-Vincentian ALEXANDRU catheter was used for angiography of the left internal mammary artery graft to the left anterior descending. A 5-Vincentian pigtail catheter was used for left heart catheterization and left ventricular angiography. She tolerated the procedure well. Angiography of the right femoral artery had been carried out through the sheath at the beginning of the procedure. At the end of the procedure, Mynx was used to achieve hemostasis. She tolerated the procedure well. HEMODYNAMICS: Left ventricular end-diastolic pressure following coronary angiography was 16 mmHg. There was no significant pressure gradient on pullback across the aortic valve. LEFT VENTRICULAR ANGIOGRAPHY: Left ventricular angiography was carried out in the right anterior oblique projection. There is localized apical dyskinesis. Left ventricular ejection fraction is well preserved and is estimated to be 50% to 55%. CORONARY ANGIOGRAPHY: Diffuse coronary calcification is seen. Left main coronary artery is free of significant disease. Left anterior descending artery is occluded in its mid portion following the origin of diagonal branch and a septal branch. The left circumflex artery is diminutive and does not seem to have significant disease. There is a ramus intermedius artery that exhibits 50% proximal and 50% mid vessel disease. The right coronary artery is dominant and does not exhibit significant disease. LEFT INTERNAL MAMMARY ARTERY GRAFT ANGIOGRAPHY: Left internal mammary artery graft is of a small caliber, but is patent throughout its extent and is patent to the distal left anterior descending with a good distal runoff. CONCLUSIONS: 1. Mid vessel occlusion of the left anterior descending, treated by left internal mammary artery graft to the distal left anterior descending. The graft is small, but patent. The left circumflex artery is diminutive. A ramus intermedius artery has 50% proximal and mid vessel stenoses. Right coronary artery is dominant and has mild plaques. 2. Elevated left ventricular end-diastolic pressure (16 mmHg). 3. Localized apical dyskinesis. Left ventricular ejection fraction of 50 to 55%. DISCUSSION AND RECOMMENDATIONS: Based on results of the study, it appears appropriate to continue a conservative approach. Close outpatient followup is advised. Current regimen is being continued. Job ID: [id number] DocumentID: [id number] Dictated Date: 04/23/2021 13:26:51 Cephalometric Technician Date: 04/23/2021 15:59:36 Dictated By: LUIZ WOLFE MD, MA, FACP, FACC,
== END 2021-04-23 16:00 | disposition home or self-care (01) ==
LOC: CATH 12:00 → SDC 13:28 → CATH 16:00
PROVIDERS: ATTEND Internal Medicine Cardiovascular Disease
DX: I25.10 Atherosclerotic heart disease of native coronary artery without angina pectoris (principal); I65.23 Occlusion and stenosis of bilateral carotid arteries; I10 Essential (primary) hypertension; J44.9 Chronic obstructive pulmonary disease, unspecified; E11.9 Type 2 diabetes mellitus without complications; E66.9 Obesity, unspecified; I70.298 Other atherosclerosis of native arteries of extremities, other extremity; E78.2 Mixed hyperlipidemia; Z95.1 Presence of aortocoronary bypass graft; Z79.82 Long term (current) use of aspirin; Z79.899 Other long term (current) drug therapy; Z79.890 Hormone replacement therapy; Z87.891 Personal history of nicotine dependence; Z90.89 Acquired absence of other organs; Z68.37 Body mass index [BMI] 37.0-37.9, adult
CPT/HCPCS: 80053; 80061; 85027; 85610; 85730; 87081; 93459; C1760; C1894; 36415

== ENCOUNTER → 2021-05-01 | Outpatient (CLI) | payer MEDICARE, OTHER ==
[~2021-05-01] MED LIST changes: -HEParin (CATH LAB) 2,000 ML IV ONE; -LIDOCAINE 1% INJ 20 ML 20 ML VIAL ONE; -NS IV 1000 ML 1,000 ML IV SCH; -NS IV 1000 ML 1,000 ML ONE
== END ==
LOC: CARD 15:00
PROVIDERS: ATTEND Nurse Practitioner Family
DX: I51.7 Cardiomegaly (principal)
CPT/HCPCS: 93306

== ENCOUNTER → 2021-09-26 | Outpatient (CLI) | payer MEDICARE, OTHER ==
[~2021-09-26] MED LIST changes: +OMEP20TA56 PO; -OMEP20TA7 PO
--- NOTE | 2021-09-27 10:05 | Diagnostic Imaging Report ---
Indication: Routine screening Comparison is made with prior mammograms from 09/25/2020 and 05/09/2019. 2-D and 3-D bilateral screening mammography was performed with CAD. Scattered fibroglandular densities are identified bilaterally. The fibronodular parenchymal pattern appears to be stable. Benign calcifications in both breasts are unremarkable. No spiculated mass or malignant appearing microcalcifications are seen. Axillae are unremarkable. IMPRESSION: BI-RADS Category 2 No mammographic features suspicious for malignancy are identified. ACR BI-RADS Category 2: Benign findings. Result letter will be mailed to the patient. Note: At least 10% of breast cancer is not imaged by mammography. Dictated by: Dictated on workstation # [id number]
== END ==
LOC: RAD 14:33
PROVIDERS: ATTEND Family Medicine
DX: Z12.31 Encounter for screening mammogram for malignant neoplasm of breast (principal)
CPT/HCPCS: 77063; 77067

== ENCOUNTER 2021-09-27 12:49 | Outpatient (CLI) | payer MEDICARE, OTHER | END 2021-09-27 13:10 | LOC: SLEEP 12:49 | PROVIDERS: ATTEND Family Medicine | DX: G47.10 Hypersomnia, unspecified (principal); G47.36 Sleep related hypoventilation in conditions classified elsewhere; I10 Essential (primary) hypertension; I25.9 Chronic ischemic heart disease, unspecified; R35.0 Frequency of micturition | CPT/HCPCS: G0399 ==

== ENCOUNTER → 2022-09-16 | Outpatient (CLI) | payer MEDICARE, OTHER ==
[~2022-09-16] MED LIST changes: +CLOP-31 PO; -CLOP75TA69 PO
--- NOTE | 2022-09-16 13:25 | Diagnostic Imaging Report ---
INDICATION: RIB PAIN. TECHNIQUE: Two view chest at 11:05 AM. CORRELATION STUDY: 02/07/2021. FINDINGS: Post sternotomy. Heart size and mediastinum are stable. Calcification of the aortic arch. Vasculature is slightly increased. Prominent interstitial markings. No definitive infiltrate. Advanced degenerative change of the thoracic spine with accentuated thoracic kyphosis. IMPRESSION: Chronic appearing changes about the lung parenchyma. Mildly prominent interstitial markings may reflect chronic lung disease versus mild edema. Dictated by: Dictated on workstation # [id number]
--- NOTE | 2022-09-16 13:28 | Diagnostic Imaging Report ---
INDICATION: RIB PAIN. TECHNIQUE: AP, lateral, and swimmers imaging of the thoracic spine. CORRELATION STUDY: None. FINDINGS: Mild rightward curvature of the thoracic spine with kyphosis. Alignment is otherwise anatomic. Mild anterior wedging of mid thoracic vertebral bodies. Moderate thoracic spondylosis with various degrees of disc space narrowing and endplate osteophyte formation. Mildly advanced cervical spondylosis. Postop changes of sternotomy. Multiple surgical clips in the soft tissue of the neck. IMPRESSION: Moderately advanced thoracic spondylosis with slight accentuated thoracic kyphosis. No acute abnormality. Dictated by: Dictated on workstation # [id number]
== END ==
LOC: RAD 10:29
PROVIDERS: ATTEND Nurse Practitioner Family
DX: J98.4 Other disorders of lung (principal); M47.814 Spondylosis without myelopathy or radiculopathy, thoracic region
CPT/HCPCS: 71046; 72072

== ENCOUNTER → 2022-09-29 | Outpatient (CLI) | payer MEDICARE, OTHER ==
--- NOTE | 2022-09-29 12:24 | Diagnostic Imaging Report ---
INDICATION: Routine screening. COMPARISON: 09/26/2021 and 09/25/2020. TECHNIQUE: 2D and 3D bilateral screening mammography was performed with CAD. FINDINGS: Scattered fibroglandular densities are identified bilaterally. There are benign calcifications bilaterally. The biopsy marker clip in the upper right breast is again noted. A density in the outer aspect of the right breast at anterior to mid depth appears slightly more prominent and there is questionable architectural distortion present. There are also several punctate calcifications. This appears to be superiorly located on the MLO view. It is uncertain if this is what has been previously biopsied although the marker clip is more medially located than this density. Additional views of this area are recommended. There are benign nodules in both breasts as well which appear stable. No malignant-appearing microcalcifications are seen. The axillae are unremarkable. IMPRESSION: Right breast density and questionable architectural distortion with associated microcalcifications in the upper outer right breast. Additional views are recommended for further evaluation. ACR BI-RADS Category 0: Incomplete. (Needs additional imaging evaluation). Result letter will be mailed to the patient. Note: At least 10% of breast cancer is not imaged by mammography. Dictated by: Dictated on workstation # [id number]
== END ==
LOC: RAD 10:00
PROVIDERS: ATTEND Nurse Practitioner Family
DX: Z12.31 Encounter for screening mammogram for malignant neoplasm of breast (principal); R92.0 Mammographic microcalcification found on diagnostic imaging of breast
CPT/HCPCS: 77063; 77067

== ENCOUNTER → 2022-10-07 | Outpatient (CLI) | payer MEDICARE, OTHER ==
--- NOTE | 2022-10-07 15:54 | Diagnostic Imaging Report ---
INDICATION: Postmenopausal screening for osteoporosis. COMPARISON: 09/25/2020. FINDINGS: AP Spine L1-L4: [BMD (g/cm2): 0.955] [T-Score: -2.0] [Z-Score: -1.5] [BMD Previous: 0.834] [BMD % Change: 14.5] LT Hip Neck: [BMD (g/cm2): 0.608] [T-Score: -3.1] [Z-Score: -2.0] LT Hip Total: [BMD (g/cm2):0.653] [T-Score:-2.8] [Z-Score: -2.0] [BMD Previous: 0.631] [BMD % Change: 3.5] RT Hip Neck: [BMD (g/cm2):0.612] [T-Score:-3.1] [Z-Score:-2.0] RT Hip Total: [BMD (g/cm2):0.664] [T-score:-2.7] [Z-Score:-1.9] [BMD Previous:0.693] [BMD % Change:-4.2] *Indicates significant change from prior examination based on 95% confidence level. World Health Organization criteria for BMD interpretation classify patients as Normal (T-score at or above -1.0), Osteopenic (T-score between -1.0 and -2.5) or Osteoporotic (T-score at or below -2.5). LIMITATIONS AND MODIFICATION: None. FRACTURE RISK (FRAX SCORE): The ten year probability of (%): Major Osteoporotic Fracture: [19.7] Hip Fracture: [7.3] IMPRESSION: 1. Osteoporosis. 2. There has been a statistically significant increase in lumbar spine BMD since prior exam, detailed above. 3. See below National Osteoporosis Foundation guidelines on when to potentially initiate pharmacologic therapy. Based on the National Osteoporosis Foundation Guidelines, pharmacologic treatment should be initiated in any of the following, unless clinical conditions suggest otherwise: * Any patient with prior fragility fracture of the hip or vertebrae. A spine fracture indicates 5X risk for subsequent spine fracture and 2X risk for subsequent hip fracture. * Osteoporosis (T-score <-2.5). * Postmenopausal women and men age 50 and older with low bone mass/osteopenia (T-score between -1.0 and -2.5) by DXA and 10-year major osteoporotic fracture greater than 20% or a 10-year probability of hip fracture greater than 3%. These fracture risks are supplied above in the FRAX score, if applicable. * Clinician judgement and/or patient preferences may indicate treatment for people with 10-year fracture probabilities above or below these levels. Dictated by: Dictated on workstation # [id number]
== END ==
LOC: RAD 14:30
PROVIDERS: ATTEND Family Medicine
DX: Z13.820 Encounter for screening for osteoporosis (principal); M81.0 Age-related osteoporosis without current pathological fracture
CPT/HCPCS: 77080

== ENCOUNTER → 2022-10-10 | Outpatient (CLI) | payer MEDICARE, OTHER ==
--- NOTE | 2022-10-10 14:53 | Diagnostic Imaging Report ---
INDICATION: Right breast calcifications and architectural distortion noted on recent screening study. Patient presents for additional views. Correlation is made with screening study from 09/29/2022 as well as prior mammograms dating back to 2017. Unilateral right 2-D and 3-D diagnostic mammography was performed. This included magnification as well as spot compression CC and ML views as well as conventional 90 degrees lateral views. CAD is utilized. The current study was also evaluated with a Computer Aided Detection (CAD) system. Additional views show persistent irregular density with architectural distortion in the upper outer right breast approximately 7 to 10 cm from the nipple. There are numerous calcifications associated with this area which are indeterminate. Further evaluation of this area with ultrasound is recommended. IMPRESSION: BI-RADS 0 Increasing irregular density and architectural distortion with calcifications in the upper outer right breast at mid depth, as described. Further evaluation with ultrasound is recommended and will be performed today. ACR BI-RADS Category 0: Incomplete. (Needs additional imaging evaluation). Result letter will be mailed to the patient. Note: At least 10% of breast cancer is not imaged by mammography. Dictated by: Dictated on workstation # [id number]
--- NOTE | 2022-10-10 16:39 | Diagnostic Imaging Report ---
INDICATION: Right breast density and architectural distortion. COMPARISON: Correlation is made with the diagnostic mammogram earlier the same day. EXAMINATION: Sonographic interrogation of upper outer right breast was performed. FINDINGS: There is a cluster of cysts at the 10:00 location, 6-7 cm from the nipple, measuring 9 mm x 3 mm x 7 mm. Adjacent to this is an area of hypoechogenicity measuring 5 mm x 4 mm which is indeterminate. It is uncertain if this is area of hypoechogenicity is located at the area of architectural distortion noted mammographically. No other abnormality is seen. IMPRESSION: 1. Cluster of cysts at 10 o'clock location of right breast, appear benign. 2. Questionable small area of hypoechogenicity at 10 o'clock location in right breast. Its uncertain if this correlates with the area of architectural distortion and calcifications seen mammographically. Even so, tissue sampling of the area of architectural distortion and calcifications in the upper outer right breast is recommended due to an apparent overall change when compared with prior mammograms. This will need to be biopsied utilizing stereotactic approach. ACR BI-RADS Category 4: Suspicious abnormality. Result letter will be mailed to the patient. Note: At least 10% of breast cancer is not imaged by mammography. Dictated by: Dictated on workstation # [id number]
== END ==
LOC: RAD 12:56
PROVIDERS: ATTEND Family Medicine
DX: N63.11 Unspecified lump in the right breast, upper outer quadrant (principal)
CPT/HCPCS: 76642; 77065; G0279

== ENCOUNTER → 2022-10-24 | Outpatient (CLI) | payer MEDICARE, OTHER ==
[~2022-10-24] VITALS: Ht 170.2 cm; Wt 104.5 kg
[~2022-10-24] MED LIST changes: +LIDOCAINE 1% INJ 10 ML VIAL INJ ONE; +LIDOCAINE 1% INJ 10 ML VIAL ONE
--- NOTE | 2022-10-24 17:52 | Diagnostic Imaging Report ---
INDICATION: Right breast architectural distortion. EXAMINATION: Patient presents for stereotactic biopsy. PROCEDURE: Patient was brought to the stereotactic suite and placed in a chair in the sitting upright position. The right breast was positioned lateral medial. The area of calcification and architectural distortion in the upper outer right breast was stereotactically targeted. The lateral right breast was then prepped and draped in the usual sterile fashion. Small amount of 1% lidocaine was utilized for local anesthesia. All images were viewed on a dedicated workstation. An 8 gauge vacuum-assisted needle was advanced into the right breast from a lateral approach and placed per stereotactic concordance. A total of 4 core biopsies were obtained. Specimen radiograph was then obtained demonstrating numerous calcifications in all samples. A marker clip was then deployed. The needle was removed and hemostasis was obtained. Patient obtained post procedure 2D CC and ML mammogram demonstrating a marker clip in the upper outer right breast. Patient tolerated the procedure well and left the Department in stable condition. IMPRESSION: Successful straight tactic biopsy of the area of architectural distortion and calcifications in the upper outer right breast utilizing the vacuum assisted device. Pathology results are currently pending. Dictated by: Dictated on workstation # [id number]
== END ==
LOC: RAD 09:49
PROVIDERS: ATTEND Family Medicine
DX: R92.1 Mammographic calcification found on diagnostic imaging of breast (principal)
CPT/HCPCS: 19081; A4648

== ENCOUNTER 2023-01-02 10:56 | Observation (INO) | payer MEDICARE, OTHER ==
[~2023-01-02] VITALS: Ht 167 cm; Wt 104.5 kg
[~2023-01-02 10:56] MED LIST changes: -LIDOCAINE 1% INJ 10 ML VIAL INJ ONE; -LIDOCAINE 1% INJ 10 ML VIAL ONE; -LOSA100T57 PO; +LOSA100T58 PO; -ROSU20TA32 PO; +ROSU20TA73 PO
[2023-01-02] MEDS ORDERED: NS IV 1000 ML 1,000 ML IV STA ×2 (11:12→11:48)
--- NOTE | 2023-01-02 11:15 | ED Syncope ---
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 states she woke up this am and felt fine. state they checked her blood sugar at home and was 140 and bp was 79 sys Source of Information: Patient Exam Limitations: No Limitations History of Present Illness Date Seen by Provider: Jan 02, 2023 Time Seen by Provider: 11:13 Initial Comments Patient is a 72-year-old female with a history of TIA, coronary artery disease who presents ED for syncopal episode. This occurred just a little after 10 this morning. She got out of the shower started feeling lightheaded and dizzy sat down according to her significant other she became unconscious for 2 to 3 minute s. After she woke up she felt fine. She states she woke up this morning feeling okay and did not have any complaints. She cannot recall having any chest pain or headache before the fall. Patient significant other took her blood sugar which read 141. They took her blood pressure which read 75/49. She is normotensive on arrival. Patient had a right sided breast lumpectomy perf ormed at 2 days ago. She had bilateral breast reduction during the process. Diagnosed with breast cancer 1 month ago. She has been taken Tylenol for pain of her breast. She denies of any increasing pain. She does have a known cardiac history. Denies history of similar symptoms in the past. She has been off her Xarelto since December 28. Scheduled to start back again today. She states she did eat last night and a little right before arrival. She reports normal urination. She has no current complaints such as headache, dizziness, visual changes, chest pain, shortness of breath, cough, abdominal pain, vomiting, diarrhea, fever, chills, headache, unilateral muscle weakness or sensory changes Allergies and Home Medications Allergies Coded Allergies: No Known Drug Allergies (Unverified , 05/01/14) Patient Home Medication List Home Medication List Reviewed: Yes Acetaminophen (Tylenol) 325 Mg Tablet, 650 MG PO Q6H, (Reported) Entered as Reported by: FRED CASTELLANOS on 01/02/23 1432 Last Action: New Order Aspirin (Aspirin EC) 81 Mg Tablet., 81 MG PO DAILY, (Reported) Entered as Reported by: JERMAIN JUAREZ on 05/29/16 0900 Last Action: Continued Calcium Carbonate (Calcium) 600 Mg Tablet, 600 MG PO DAILY, (Reported) Entered as Reported by: ANA CHRISTIE on 04/23/21 103 Last Action: Continued Cholecalciferol (Vitamin D3) (Vitamin D3) 25 Mcg Tablet, 50 MCG PO DAILY, (Reported) Entered as Reported by: ANA CHRISTIE on 04/23/21 103 Last Action: Continued Cyanocobalamin (Vitamin B-12) (Vitamin B12) 5,000 Mcg Tab.rapdis, 5,000 MCG PO DAILY, (Reported) Entered as Reported by: ANA CHRISTIE on 04/23/21 103 Last Action: Converted Doxycycline Hyclate (Doxycycline Hyclate) 100 Mg Capsule, 100 MG PO BID, (Reported) Entered as Reported by: FRED CASTELLANOS on 01/02/23 1517 Last Action: New Order Gabapentin (Gabapentin) 100 Mg Capsule, 100 MG PO TID, (Reported) Entered as Reported by: RONNI FUENTES on 02/07/21 120 Last Action: Continued Irbesartan (Irbesartan) 300 Mg Tablet, 300 MG PO DAILY, (Reported) Entered as Reported by: RONNI FUENTES on 02/07/21 120 Last Action: Converted Lactobacillus Acidophilus (Acidophilus Probiotic) 1 Each Capsule, 3 EACH PO DAILY, (Reported) Entered as Reported by: ANA CHRISTIE on 04/23/21 103 Last Action: Converted Levothyroxine Sodium (Levothyroxine Sodium) 100 Mcg Tablet, 100 MCG PO DAILY, (Reported) Entered as Reported by: RED TORRES on 03/05/18 1014 Last Action: Continued Metoprolol Succinate (Metoprolol Succinate) 25 Mg Tab.er.24h, 37.5 MG PO BID, (Reported) Entered as Reported by: RONNI FUENTES on 02/07/21 1213 Last Action: Continued Omeprazole (Omeprazole) 20 Mg Tablet.dr, 20 MG PO DAILY, (Reported) Entered as Reported by: RONNI FUENTES on 02/07/21 1206 Last Action: Converted Rivaroxaban (Xarelto) 20 Mg Tablet, 20 MG PO HS, (Reported) Entered as Reported by: RONNI FUENTES on 02/07/21 1206 Last Action: Held Rosuvastatin Calcium (Rosuvastatin Calcium) 20 Mg Tablet, 20 MG PO MON,WED,FRI, (Reported) Entered as Reported by: RED TORRES on 03/05/18 1019 Last Action: Continued Ubidecarenone (Coq-10) 100 Mg Capsule, 100 MG PO DAILY, (Reported) Entered as Reported by: ANA CHRISTIE on 04/23/21 1032 Last Action: Converted Zinc Amino Acid Chelate (Zinc) 50 Mg Tablet, 100 MG PO DAILY, (Reported) Entered as Reported by: ANA CHRISTIE on 04/23/21 1032 Last Action: Converted Discontinued Medications Fluticasone/Salmeterol (Fluticasone-Salmeterol 113-14) 1 Each Aer.pow.ba, 1 PUFF INH BID, (Reported) Discontinued Reason: No Longer Taking Entered as Reported by: RONNI FUENTES on 02/07/21 1206 Last Action: Discontinued Review of Systems Constitutional: No chills, No diaphoresis; dizziness; No fever, No malaise, No weakness EENTM: No hearing loss, No ear pain, No blurred vision Respiratory: No cough, No dyspnea on exertion Cardiovascular: No chest pain Gastrointestinal: No abdominal pain, No diarrhea, No nausea, No vomiting Genitourinary: No decreased output, No discharge, No dysuria, No frequency Musculoskeletal: No back pain, No joint pain Skin: No change in color, No change in hair/nails Psychiatric/Neurological: Other (syncope) All Other Systems Reviewed Negative Unless Noted: Yes Past Hvtlvzb-Ilndtk-Pznipt Hx Patient Social History Tobacco Use?: No Substance use?: No Alcohol Use?: No Immunizations Up To Date Tetanus Booster (TDap): More than 5yrs PED Vaccines UTD: No First/Initial COVID19 Vaccinat: NO COVID VACCINE Second COVID19 Vaccination Gavino: NO COVID VACCINE Third COVID19 Vaccination Date: NO COVID VACCINE Seasonal Allergies Seasonal Allergies: No Past Medical History Surgery/Hospitalization HX: cad, stents, mi, breast ca, lumpectomy, resection Surgeries: Yes (BREAST BX, CAROTID R, Fempop on L leg) Cardiac, CABG, Vascular Surgery Respiratory: No COPD Currently Using CPAP: No Currently Using BIPAP: No Cardiac: Yes Coronary Artery Disease, High Cholesterol, Hypertension Neurological: Yes (MILD LT SIDE WEAKNESS) Stroke Reproductive Disorders: No Female Reproductive Disorders: Denies Sexually Transmitted Disease: No HIV/AIDS: No Genitourinary: No Gastrointestinal: No Colitis, Gastrointestinal Bleed, Chronic Constipation Musculoskeletal: No Arthritis Endocrine: Yes (thyroid nodules, THYROIDECTOMY) Diabetes, Non-Insulin dep Loss of Vision: Denies Hearing Impairment: Hard of Hearing Cancer: No Psychosocial: No Integumentary: No Blood Disorders: Yes (dvt, anemia) Adverse Reaction/Blood Tranf: No Family Medical History Cardiovascular disease 19 FATHER, Onset:Unknown Completed stroke 19 FATHER, Onset:60 years & older Diabetes mellitus 19 FATHER, Onset:50's - 60 Hypertension 19 FATHER, Onset:Unknown Kidney disease G8 BROTHER, Onset:[employer] No Family History of: AIDS Abdominal aortic aneurysm [place]'s disease Alcoholism Alzheimer's disease Aphasia Arthritis Asthma Cancer of mouth Cataracts Colon cancer Congenital disease Congenital heart disease Coronary thrombosis Cystic fibrosis Deafness or hearing loss Dementia Drug abuse Dysphasia Fibrocystic disease of breast Gastroenteritis Glaucoma Headache disorder Hypercholesterolemia Infertility Myocardial infarction Neoplasm Not obtainable due to adoption Osteoporosis Parkinson's disease Prostate cancer Psychosocial problem Respiratory disorder Seizure disorder Severe allergy Thyroid disease Tuberculosis Visual disorder Heart Disease, Diabetes, Hypertension, Renal Disease, Stroke Physical Exam Vital Signs Vital Signs - First Documented 01/02/23 11:06 Temp 35.9 Pulse 69 Resp 18 B/P (MAP) 122/58 (79) Pulse Ox 94 Capillary Refill : Less Than 3 Seconds Height, Weight, BMI Height: 5'7.00" Weight: 214lbs. 7.0oz. 97.126648gm; 37.00 BMI Method:Stated General Appearance: No Apparent Distress, WD/WN HEENT: PERRL/EOMI, TMs Normal, Normal ENT Inspection, Pharynx Normal Neck: Full Range of Motion, Normal Inspection, Non Tender Cardiovascular: Regular Rate, Rhythm, No Edema, No Gallop, No JVD, No Murmur Respiratory: Chest Non Tender, Lungs Clear, Normal Breath Sounds, No Accessory Muscle Use, No Respiratory Distress Gastrointestinal: Normal Bowel Sounds, No Organomegaly, No Pulsatile Mass, Non Tender Back: Normal Inspection, No CVA Tenderness, No Vertebral Tenderness Extremities: Normal Capillary Refill, Normal Inspection, Normal Range of Motion, Non Tender Neurologic/Psychiatric: Alert, Oriented x3, No Motor/Sensory Deficits, Normal 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, 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 Motor/Sensory: No Motor Deficit, No Sensory Deficit, No Pronator Drift Skin: Normal Color, Warm/Dry Progress/Results/Core Measures Results/Orders Lab Results Laboratory Tests Test 01/02/23 11:05 01/02/23 13:12 Range/Units White Blood Count 11.0 4.3-11.0 10^3/uL Red Blood Count 3.90 3.80-5.11 10^6/uL Hemoglobin 12.2 11.5-16.0 g/dL Hematocrit 38 35-52 % Mean Corpuscular Volume 97 80-99 fL Mean Corpuscular Hemoglobin 31 25-34 pg Mean Corpuscular Hemoglobin Concent 32 32-36 g/dL Red Cell Distribution Width 13.3 10.0-14.5 % Platelet Count 287 130-400 10^3/uL Mean Platelet Volume 9.3 9.0-12.2 fL Immature Granulocyte % (Auto) 0 % Neutrophils (%) (Auto) 76 H 42-75 % Lymphocytes (%) (Auto) 16 12-44 % Monocytes (%) (Auto) 6 0-12 % Eosinophils (%) (Auto) 1 0-10 % Basophils (%) (Auto) 0 0-10 % Neutrophils # (Auto) 8.4 H 1.8-7.8 10^3/uL Lymphocytes # (Auto) 1.8 1.0-4.0 10^3/uL Monocytes # (Auto) 0.7 0.0-1.0 10^3/uL Eosinophils # (Auto) 0.1 0.0-0.3 10^3/uL Basophils # (Auto) 0.0 0.0-0.1 10^3/uL Immature Granulocyte # (Auto) 0.0 0.0-0.1 10^3/uL Prothrombin Time 13.5 12.2-14.7 SEC INR Comment 1.0 0.8-1.4 Activated Partial Thromboplast Time 25 24-35 SEC D-Dimer 0.81 H 0.00-0.49 UG/ML Sodium Level 140 135-145 MMOL/L Potassium Level 3.9 3.6-5.0 MMOL/L Chloride Level 104 98-107 MMOL/L Carbon Dioxide Level 25 21-32 MMOL/L Anion Gap 11 5-14 MMOL/L Blood Urea Nitrogen 16 7-18 MG/DL Creatinine 0.93 0.60-1.30 MG/DL Estimat Glomerular Filtration Rate 65 BUN/Creatinine Ratio 17 Glucose Level 149 H 70-105 MG/DL Calcium Level 9.2 8.5-10.1 MG/DL Corrected Calcium 9.4 8.5-10.1 MG/DL Magnesium Level 2.0 1.6-2.4 MG/DL Total Bilirubin 0.7 0.1-1.0 MG/DL Aspartate Amino Transf (AST/SGOT) 15 5-34 U/L Alanine Aminotransferase (ALT/SGPT) 13 0-55 U/L Alkaline Phosphatase 83 40-136 U/L Myoglobin 131.2 H 10.0-92.0 NG/ML Troponin I < 0.028 <0.028 NG/ML B-Type Natriuretic Peptide 114.7 H <100.0 PG/ML Total Protein 6.5 6.4-8.2 GM/DL Albumin 3.8 3.2-4.5 GM/DL Urine Color YELLOW Urine Clarity CLEAR Urine pH 6.0 5-9 Urine Specific [place] 1.005 L 1.016-1.022 Urine Protein NEGATIVE NEGATIVE Urine Glucose (UA) NEGATIVE NEGATIVE Urine Ketones NEGATIVE NEGATIVE Urine Nitrite NEGATIVE NEGATIVE Urine Bilirubin NEGATIVE NEGATIVE Urine Urobilinogen 0.2 < = 1.0 MG/DL Urine Leukocyte Esterase NEGATIVE NEGATIVE Urine RBC (Auto) NEGATIVE NEGATIVE Urine RBC NONE /HPF Urine WBC RARE /HPF Urine Squamous Epithelial Cells RARE /HPF Urine Crystals NONE /LPF Urine Bacteria NEGATIVE /HPF Urine Casts NONE /LPF Urine Mucus NEGATIVE /LPF Urine Culture Indicated NO My Orders Orders - TROY STUART PA Cbc With Automated Diff (01/02/23 11:11) Magnesium (01/02/23 11:11) Chest 1 View, Ap/Pa Only (01/02/23 11:11) Ekg Tracing (01/02/23 11:11) Comprehensive Metabolic Panel (01/02/23 11:11) Myoglobin Serum (01/02/23 11:11) Protime With Inr (01/02/23 11:11) Partial Thromboplastin Time (01/02/23 11:11) O2 (01/02/23 11:11) Monitor-Rhythm Ecg Trace Only (01/02/23 11:11) Lipid Panel (01/03/23 06:00) Ed Iv/Invasive Line Start (01/02/23 11:11) Bnp Amy (01/02/23 11:11) Fibrin Degradation Products (01/02/23 11:11) Troponin I Amy (01/02/23 11:11) Orthostatic Vital Signs (Adult (01/02/23 11:11) Ct Head Wo (01/02/23 11:11) Ua Culture If Indicated (01/02/23 11:12) Ns Iv 1000 Ml (Sodium Chloride 0.9%) (01/02/23 11:12) Ns Iv 1000 Ml (Sodium Chloride 0.9%) (01/02/23 11:48) Ct Angio Chest W (R/O Pe) (01/02/23 11:56) Iohexol Injection (Omnipaque 350 Mg/Ml 1 (01/02/23 12:15) Received Contrast (Hold Metformin- Contr (01/02/23 12:15) Ns (Ivpb) 100 Ml (Sodium Chloride 0.9% 1 (01/02/23 12:15) Iohexol Injection (Omnipaque 350 Mg/Ml 1 (01/02/23 12:30) Received Contrast (Hold Metformin- Contr (01/02/23 12:30) Ns (Ivpb) 100 Ml (Sodium Chloride 0.9% 1 (01/02/23 12:30) Ed Admission (Communication) (01/02/23 13:04) Medications Given in ED Vital Signs/I&O 01/02/23 11:06 Temp 35.9 Pulse 69 Resp 18 B/P (MAP) 122/58 (79) Pulse Ox 94 Blood Pressure Mean: 79 Comment Sinus rhythm, low QRS voltage in precordial leads 64 bpm, QRS duration 117 MS, QTc 414 MS. Departure Communication (PCP) Patient with a history of CVA, hypertension, diabetes, coronary artery disease who presents to ED for syncopal episode. This occurred just right at after 10 AM this morning. Got out of the shower felt lightheaded and lost consciousness for 2 to 3 minutes according to . Patient was sitting down at the time. She had no chest pain or headache before the episode. She did not have any chest pain or headache after. Low blood pressure reading at home. Blood sugar was 141. On arrival she was normotensive. She was not tachycardic or febrile. Patient without any focal neural deficits. Due to her extensive cardiac history history of stroke cardiac work-up,CT scan of the head with an added D-dimer. She is supposed to be on Xarelto but stopped taking it due to breast reduction and a lumpectomy performed at [facility] days ago. 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 EKG did not show evidence of arrhythmia, ST elevation or depression. CBC grossly unremarkable. Normal white blood count hemoglobin platelets. Chemistry showed normal kidney function, liver function. Blood sugar 149. Normal troponin BNP 114. Chest x-ray did not note any acute abnormality. Patient blood pressure did drop into the upper 80s 3 different readings. She was placed on a liter of fluid with a pressure bag. Attempted to do orthostatics but patient became dizzy lightheaded. She states she has not been eating or drinking as much since her surgery which may be contributing to her low blood pressure. She does take metoprolol and Avapro for BP which she has been taking. She schedule start her Xarelto tonight. She did have a slight elevated D-dimer. A CT angio of the chest did not note any PE, pneumothorax or pneumonia. Chronic findings were noted. CT scan of the head did not note any acute abnormality but did note chronic findings. Patient is otherwise asymptomatic besides when she stands. She received a second liter of fluid and still remained slightly hypotensive. Do not feel comfortable sending patient home at this time due to her presentation and complaints. I do think patient would likely benefit with observation fluids cardiac consult with her extensive cardiac history. No evidence of arrhythmia on her ECG. Contacted Dr. Leary who is on-call for Dr. Fulton who agreed to accept the patient to ICU due to her extensive medical history. Patient agreed with admission. Called Dr. Hadley Speech Language Pathologist twice but did not get any call back. Impression Primary Impression: Hypotension Additional Impression: Syncope Disposition: ADMITTED INPATIENT Condition: Stable Admissions Decision to Admit Reason: Admit from ER (General) Decision to Admit/Date: Jan 02, 2023 Time/Decision to Admit Time: 13:03 Departure-Patient Inst. Referrals: ARTEM FULTON MD (PCP/Family) Primary Care Physician TROY STUART Jan 02, 2023 11:15
[2023-01-02 11:24] LABS: BASOPHILS % (AUTO) 0 % (0-10); EOSINOPHILS # (AUTO) 0.1 10^3/uL (0.0-0.3); EOSINOPHILS % (AUTO) 1 % (0-10); HEMATOCRIT 38 % (35-52); HEMOGLOBIN 12.2 g/dL (11.5-16.0); LYMPHOCYTES # (AUTO) 1.8 10^3/uL (1.0-4.0); LYMPHOCYTES % (AUTO) 16 % (12-44); MEAN CORPUSCULAR HEMOGLOBIN 31 pg (25-34); MEAN CORPUSCULAR HGB CONC 32 g/dL (32-36); MEAN CORPUSCULAR VOLUME 97 fL (80-99); MEAN PLATELET VOLUME 9.3 fL (9.0-12.2); MONOCYTES # (AUTO) 0.7 10^3/uL (0.0-1.0); MONOCYTES % (AUTO) 6 % (0-12); NEUTROPHILS # (AUTO) 8.4 10^3/uL (1.8-7.8); NEUTROPHILS % (AUTO) 76 % (42-75); PLATELET COUNT 287 10^3/uL (130-400)
[2023-01-02 11:29] LABS: PROTHROMBIN TIME PATIENT 13.5 SEC (12.2-14.7)
[2023-01-02 11:32] LABS: FIBRIN DEGRADATION PRODUCTS 0.81 UG/ML (0.00-0.49)
[2023-01-02 11:33] LABS: ALBUMIN 3.8 GM/DL (3.2-4.5); CHLORIDE 104 MMOL/L (98-107); POTASSIUM 3.9 MMOL/L (3.6-5.0); SODIUM 140 MMOL/L (135-145)
--- NOTE | 2023-01-02 11:33 | Diagnostic Imaging Report ---
EXAMINATION: CT head without contrast. TECHNIQUE: Multiple contiguous axial images were obtained through the brain without the use of intravenous contrast. All CT scans use one or more of the following dose optimizing techniques: automated exposure control, MA and/or KvP adjustment based on patient size and exam type or iterative reconstruction. HISTORY: Dizziness. Syncopal episode. COMPARISON: 05/04/2016. FINDINGS: No large acute territorial ischemia, mass, or hemorrhage. No midline shift or mass effect. Chronic infarcts are seen in the right frontal lobe and right basal ganglia. Decreased attenuation is seen in the periventricular and subcortical white matter. The ventricles and cortical sulci are prominent. The basilar cisterns are patent and unremarkable. The orbits are normal. Paranasal sinuses are normal. Mastoid air cells are clear. No soft tissue abnormality is seen. No acute calvarial fracture. Stable prominent bone island is seen in the left parietal bone. IMPRESSION: 1. No large acute territorial ischemia, mass, or hemorrhage. 2. Chronic microvascular disease. 3. Generalized parenchymal volume loss. 4. Chronic infarcts in the right frontal lobe and right basal ganglia. Dictated by: Dictated on workstation # [id number]
[2023-01-02 11:34] LABS: CALCIUM 9.2 MG/DL (8.5-10.1)
[2023-01-02 11:36] LABS: GLUCOSE 149 MG/DL (70-105); TOTAL PROTEIN 6.5 GM/DL (6.4-8.2)
[2023-01-02 11:37] LABS: CARBON DIOXIDE 25 MMOL/L (21-32)
--- NOTE | 2023-01-02 11:37 | Diagnostic Imaging Report ---
INDICATION: Chest pain. EXAMINATION: Portable chest, 11:37 a.m. FINDINGS: There are postoperative changes from median sternotomy. Heart size and pulmonary vascularity are normal. Lungs are clear. There are no effusions or pneumothoraces. IMPRESSION: No acute abnormalities in the chest. Dictated by: Dictated on workstation # [id number]
[2023-01-02 11:38] LABS: BILIRUBIN,TOTAL 0.7 MG/DL (0.1-1.0)
[2023-01-02 11:39] LABS: ALKALINE PHOSPHATASE 83 U/L (40-136); CREATININE SERUM 0.93 MG/DL (0.60-1.30); GFR ESTIMATED 65
[2023-01-02 11:40] LABS: BUN/CREATININE RATIO 17
[2023-01-02 11:42] LABS: ALANINE AMINOTRANSFERASE 13 U/L (0-55)
[2023-01-02] MEDS ORDERED: HOLD METFORMIN - RECEIVED CONTRAST 20 ML VIAL IV SCH ×2 (12:15→12:30)
[2023-01-02] MEDS ORDERED: NS 100 ML (IVPB) BAG IV ONE ×2 (12:15→12:30)
[2023-01-02] MEDS ORDERED: IOHEXOL 350 MG/ML 100 ML (OMNIPAQUE 350) VIAL IV ONE ×2 (12:15→12:30)
--- NOTE | 2023-01-02 12:48 | Diagnostic Imaging Report ---
INDICATION: Chest pain. Syncope. Elevated D-dimer. Status post recent CABG. COMPARISON: None. TECHNIQUE: Routine postcontrast CTA of the chest was performed. Contrast was timed for optimal opacification of the pulmonary arteries. Multiplanar and 3-D reformats were also created and reviewed. Auto Exposure Controls were utilized during the CT exam to meet ALARA standards for radiation dose reduction. FINDINGS: No abnormal intraluminal filling defect is seen within the pulmonary arteries to the first subsegmental division. Thoracic aorta is suboptimally opacified but shows moderate scattered calcified atherosclerosis, but no convincing evidence of dissection or aneurysm. By NASCET criteria, there is no focal significant stenosis. Heart size is mildly prominent. There is no large pericardial effusion. Prominent pericardial fat is noted. There is also moderate calcified coronary atherosclerosis. No pathologically enlarged or morphologically abnormal adenopathy is seen within the mediastinum, vernell, nor axillae. Lungs are clear. There is no focal consolidation, large effusion, nor pneumothorax. There is diffuse septal thickening suggestive of vascular congestion. No suspicious pulmonary nodules or masses are identified. Osseous structures show no acute abnormalities. There is scattered subcutaneous soft tissue emphysema. No suspicious focal loculated air-fluid collection is seen. Included portions of the upper abdomen are unremarkable as well. IMPRESSION: 1. No acute vascular abnormality of the chest. 2. Mild cardiomegaly and probable pulmonary vascular congestion. 3. Moderate calcified aortic and coronary atherosclerosis. Dictated by: Dictated on workstation # [id number]
--- NOTE | 2023-01-02 13:05 | History & Physical ---
History of Present Illness HPI/Chief Complaint CC: Orthostatic hypotension HPI: This is a 71yoWF clinic patient of Dr Fulton who presents with a 1 day history of dizziness and low BP with weakness and syncopal episode while in shower today. She was found to have significant hypotension which has responded to IVF. She has a h/o CAD and considering her status and PMH she required observation. To note she had breast reduction surgery at 2 days ago and she remains on Doxy and scheduled APAP but has no evidence of sepsis and sutures appear to be healing normally. She has a h/o lumpectomy at and diagnosed with breast cancer. She remains on OAC. Source: patient Exam Limitations: no limitations Date Seen 01/02/23 Time Seen by a Provider: 13:20 Attending Physician Valentina Fulton MD PCP Admitting Physician: Attending Physician: Referring Physician Date of Admission Home Medications & Allergies Home Medications Reviewed patient Home Medication Reconciliation performed by pharmacy medication reconciliations radiation protection technician and/or nursing. Patients Allergies have been reviewed. Allergies Allergies Coded Allergies No Known Drug Allergies (Oxcjiltuzd40/1/14) Past Wrnqjjg-Aambri-Bjvnhv Hx Past Med/Social Hx: Reviewed Nursing Past Med/Soc Hx, Reviewed and Corrections made Patient Social History Marrital Status: Employed/Student: retired Alcohol Use: Denies Use Smoking Status: Never a Smoker Former Smoker, Quit: May 01, 2016 Type Used: Cigarettes 2nd Hand Smoke Exposure: Yes Recent Hopitalizations: No Immunizations Up To Date Tetanus Booster (TDap): More than 5yrs Pediatric: No Date of Pneumonia Vaccine: May 03, 2014 Date of Influenza Vaccine: Mar 25, 2016 Seasonal Allergies Seasonal Allergies: No Past Medical History Surgeries: Breast, Cardiac, CABG, Vascular Surgery Currently Using CPAP: No Currently Using BIPAP: No Cardiac: Coronary Artery Disease, High Cholesterol, Hypertension Neurological: Stroke Reproductive: No Sexually Transmitted Disease: No HIV/AIDS: No Female Reproductive Disorders: Denies Gastrointestinal: Colitis, Gastrointestinal Bleed, Chronic Constipation Musculoskeletal: Arthritis Endocrine: Diabetes, Non-Insulin dep Loss of Vision: Denies Hearing Impairment: Hard of Hearing History of Blood Disorders: Yes (dvt, anemia) Adverse Reaction to Blood Frost: No Family History Cardiovascular disease 19 FATHER, Onset:Unknown Completed stroke 19 FATHER, Onset:60 years & older Diabetes mellitus 19 FATHER, Onset:50's - 60 Hypertension 19 FATHER, Onset:Unknown Kidney disease G8 BROTHER, Onset:[place] No Family History of: AIDS Abdominal aortic aneurysm Bitely's disease Alcoholism Alzheimer's disease Aphasia Arthritis Asthma Cancer of mouth Cataracts Colon cancer Congenital disease Congenital heart disease Coronary thrombosis Cystic fibrosis Deafness or hearing loss Dementia Drug abuse Dysphasia Fibrocystic disease of breast Gastroenteritis Glaucoma Headache disorder Hypercholesterolemia Infertility Myocardial infarction Neoplasm Not obtainable due to adoption Osteoporosis Parkinson's disease Prostate cancer Psychosocial problem Respiratory disorder Seizure disorder Severe allergy Thyroid disease Tuberculosis Visual disorder Heart Disease, Diabetes, Hypertension, Renal Disease, Stroke Review of Systems Constitutional: see HPI, dizziness, malaise, weakness Skin: see HPI Physical Exam Physical Exam Vital Signs Vital Signs - First Documented 01/02/23 01/02/23 01/02/23 11:06 14:15 14:39 Temp 35.9 Pulse 69 Resp 18 B/P (MAP) 122/58 (79) Pulse Ox 94 O2 Delivery Room Air FiO2 21 Capillary Refill : Less Than 3 Seconds Height, Weight, BMI Height: 5'7.00" Weight: 214lbs. 7.0oz. 97.683598wp; 37.00 BMI Method:Stated General Appearance: No Apparent Distress, WD/WN HEENT: PERRL/EOMI, Normal ENT Inspection, Pharynx Normal Neck: Full Range of Motion, Normal Inspection, Non Tender Respiratory: Chest Non Tender, Lungs Clear, Normal Breath Sounds, No Accessory Muscle Use, No Respiratory Distress Cardiovascular: Regular Rate, Rhythm, No Edema, No Gallop, No JVD, No Murmur Gastrointestinal: Normal Bowel Sounds, No Organomegaly, No Pulsatile Mass, Non Tender Back: Normal Inspection, No CVA Tenderness, No Vertebral Tenderness Extremity: Normal Capillary Refill, Normal Inspection, Normal Range of Motion, Non Tender Neurologic/Psychiatric: Alert, Oriented x3, No Motor/Sensory Deficits, Normal 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 Assessment/Plan Admission Diagnosis Assessment: Orthostatic hypotension Dehydration Recent breast reduction surgery at Recent lumpectomy due to breast cancer CAD prev CABG OAC h/o CVA Hypothyroidism GERD HTN Plan: Home meds IVF ICU due to syncope and h/o CAD Doxy Admission Status: Observation Diagnosis/Problems Diagnosis/Problems (1) Syncope (2) Hypotension Status: Acute (3) CAD (coronary artery disease) KEITH STOLL DO Jan 02, 2023 13:05
[2023-01-02 13:45] LABS: CLARITY,URINE CLEAR; COLOR,URINE YELLOW; GLUCOSE, URINE (UA) NEGATIVE (NEGATIVE); KETONES,URINE NEGATIVE (NEGATIVE); NITRITE,URINE NEGATIVE (NEGATIVE); PROTEIN,URINE NEGATIVE (NEGATIVE)
[2023-01-02 13:46] LABS: BACTERIA,URINE NEGATIVE /HPF; BILIRUBIN,URINE NEGATIVE (NEGATIVE); LEUKOCYTE ESTERASE ,URINE NEGATIVE (NEGATIVE); SQUAMOUS EPITHELIAL CELL,UR RARE /HPF; WBC,URINE RARE /HPF
[2023-01-02] MEDS ORDERED: BISACODYL 10 MG SUPPOSITORY PR PRN (14:15)
[2023-01-02] MEDS ORDERED: MILK OF MAGNESIA 400 MG/5 ML 30 ML UDC PO PRN (14:15)
[2023-01-02] MEDS ORDERED: LACTULOSE SYRUP 10GM/15ML 30ML UDC PO PRN (14:15)
[2023-01-02] MEDS ORDERED: diphenhydrAMINE INJ 50 MG/ML VIAL IVP PRN (14:15)
[2023-01-02] MEDS ORDERED: HYDROmorphone INJECTION 2 MG/ML VIAL IV PRN (14:15)
[2023-01-02] MEDS ORDERED: ONDANSETRON 4 MG (ZOFRAN) ORAL DISSOLVE TAB PO PRN (14:15)
[2023-01-02] MEDS ORDERED: diphenhydrAMINE 25 MG TABLET PO PRN (14:15)
[2023-01-02] MEDS ORDERED: ONDANSETRON 4 MG/2 ML (SDV) Z0FRAN IV PRN (14:15)
[2023-01-02] MEDS ORDERED: NS IV 500 ML 500 ML IV PRN (14:15)
[2023-01-02] MEDS ORDERED: ANTACID SUSP 30 ML UDC (MYLANTA) PO PRN (14:15)
[2023-01-02] MEDS ORDERED: oxyCODONE IMMEDIATE RELEASE 5 MG TABLET PO PRN (14:15)
[2023-01-02] MEDS ORDERED: CALCIUM CARBONATE 500 MG CHEW TABLET PO PRN (14:15)
[2023-01-02] MEDS ORDERED: polyethylene glycoL POWDER 17 GM (MIRALAX) PACK PO PRN (14:15)
[2023-01-02] MEDS ORDERED: MELATONIN 3 MG TABLET PO PRN (14:15)
[2023-01-02] MEDS ORDERED: ACET325T38 PO (14:32)
[2023-01-02 14:39] VITALS: BP 122/58
[2023-01-02] MEDS ORDERED: RT-Ipratropium/Albuterol NEB 3 ML VIAL INH PRN (15:00)
[2023-01-02] MEDS: ACETAMINOPHEN 325 MG TABLET PO PRN (15:12)
[2023-01-02] MEDS: NS IV 1000 ML 1,000 ML IV SCH (15:12)
[2023-01-02] MEDS ORDERED: DOXY100C5 PO (15:17)
[2023-01-02] MEDS: inSUlin ASPART 1 UNIT/0.01 ML (PER UNIT) SC SCH ×2 (16:00→21:03)
[2023-01-02] MEDS ORDERED: RIVAROXABAN 20 MG TABLET (XARELTO) PO SCH (17:00)
--- NOTE | 2023-01-02 18:10 | Tele-ICU Consult ---
History of Present Illness History of Present Illness Date Seen by Provider: Jan 02, 2023 Time Seen by Provider: 18:09 History of Present Illness (Tele-ICU Physician , consultation as per request of PCP Service provided via interactive audio and video telecommunications E-CARE system to a patient admitted to ICU bed in [facility]. Available chart/ vitals / labs / Images reviewed H&P is from ER notes Patient's information available about PMH, Shx, Fhx allergy reviewed inEMR. ROS as per chart and RN report Now in ICU, hemodynamically stable Video assessment done using teleICU camera, rest of exam as per RN Discussed with RN. Hospital course: A/P syncopal episode - CT head - WNL , CTch - no PE , + ortostatis with getting dizzy in ER - suspected dehydration - started on IVF in ER - will hold gher home BP meds - cont hydration - monitor for arrhythmias - cards consulted VTE Prophylaxis: xarelto Stress Ulcer Prophylaxis:na Plans in collaboration with bedside consultants and IM MDs. Discussed with RN to reach out if any questions or concerns A total of 10 minutes of critical care time was devoted to this patient today, required to treat and/or prevent further deterioration of critical care condition ( as above ) . I am remotely monitoring this patient from another state. I am unable to do the bedside exam, and history/physical and pertinent information is taken from other notes in the computer and bedside staff. . Allergies and Home Medications Allergies Coded Allergies: No Known Drug Allergies (Unverified , 05/01/14) Home Medications Acetaminophen 325 Mg Tablet, 650 MG PO Q6H, (Reported) TAKES EVERY 6 HOURS FOR 3 DAYS POST SURGERY AT . NEXT DOSE 1500 Aspirin 81 Mg Tablet.dr, 81 MG PO DAILY, (Reported) Calcium Carbonate 600 Mg Tablet, 600 MG PO DAILY, (Reported) Cholecalciferol (Vitamin D3) 25 Mcg Tablet, 50 MCG PO DAILY, (Reported) Cyanocobalamin (Vitamin B-12) 5,000 Mcg Tab.rapdis, 5,000 MCG PO DAILY, (Reported) Doxycycline Hyclate 100 Mg Capsule, 100 MG PO BID, (Reported) Gabapentin 100 Mg Capsule, 100 MG PO TID, (Reported) Irbesartan 300 Mg Tablet, 300 MG PO DAILY, (Reported) Lactobacillus Acidophilus 1 Each Capsule, 3 EACH PO DAILY, (Reported) Levothyroxine Sodium 100 Mcg Tablet, 100 MCG PO DAILY, (Reported) Metoprolol Succinate 25 Mg Tab.er.24h, 37.5 MG PO BID, (Reported) TAKING 1 AND 1/2 OF 25MG TAB Omeprazole 20 Mg Tablet.dr, 20 MG PO DAILY, (Reported) Rivaroxaban 20 Mg Tablet, 20 MG PO HS, (Reported) Rosuvastatin Calcium 20 Mg Tablet, 20 MG PO MON,WED,FRI, (Reported) Ubidecarenone 100 Mg Capsule, 100 MG PO DAILY, (Reported) Zinc Amino Acid Chelate 50 Mg Tablet, 100 MG PO DAILY, (Reported) Past Medical/Social/Family Hx Patient Social History Tobacco Use?: No Smoking Status: Former Smoker Use of E-Cig and/or Vaping dev: No Substance use?: No Alcohol Use?: No Pt stated abuse/neglect: No Immunizations Up To Date First/Initial COVID19 Vaccinat: NO COVID VACCINE Second COVID19 Vaccination Gavino: NO COVID VACCINE Hepatitis A: No Hepatitis B: No TB Skin Test: Negative Date of Pneumonia Vaccine: May 03, 2014 Current Status Advance Directives: No Communicates: Verbally Primary Language: Filipino Preferred Spoken Language: Filipino Is interpretation needed?: No Sensory deficits: Vision impairment, Hearing impairment Implanted or Applied Medical D: None Review of Systems Constitutional: see HPI Focused Exam Height, Weight, BMI Height: 5'7.00" Weight: 214lbs. 7.0oz. 97.285600ql; 37.46 BMI Method:Stated Exam Exam Patient acknowledged, consented, and participated in this virtual visit which was conducted using real time audio/video Vital Signs Date Time Temp Pulse Resp B/P (MAP) Pulse Ox O2 Delivery O2 Flow Rate FiO2 01/02/23 17:00 70 83/52 (70) 95 Room Air 01/02/23 16:12 36.3 01/02/23 16:00 80 108/56 (67) 96 Room Air 01/02/23 15:00 92 Room Air 01/02/23 15:00 80 19 121/90 (103) 93 Room Air 01/02/23 14:39 35.9 69 94 21 01/02/23 14:36 74 01/02/23 14:15 36.4 88 19 117/62 (80) 92 Room Air 01/02/23 14:10 35.9 70 18 107/48 93 01/02/23 11:06 35.9 69 18 122/58 (33) 94 Height & Weight Height: 5'7.00" Weight: 214lbs. 7.0oz. 97.899621ty; 37.46 BMI Method:Stated General Appearance: No Apparent Distress, WD/WN, Other HEENT: PERRL/EOMI, TMs Normal, Normal ENT Inspection, Pharynx Normal Neck: Full Range of Motion, Normal Inspection, Non Tender Respiratory: Chest Non Tender, Lungs Clear, Normal Breath Sounds, No Accessory Muscle Use, No Respiratory Distress Cardiovascular: Regular Rate, Rhythm, No Edema, No Gallop, No JVD, No Murmur Capillary Refill: Less Than 3 Seconds Extremity: Normal Capillary Refill, Normal Inspection, Normal Range of Motion, Non Tender Neurologic/Psychiatric: Alert, Oriented x3, No Motor/Sensory Deficits, Normal 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
[2023-01-02] MEDS: RT-Ipratropium/Albuterol NEB 3 ML VIAL INH SCH (19:42)
[2023-01-02] MEDS: ACETAMINOPHEN 325 MG TABLET PO SCH (21:07)
[2023-01-02] MEDS: SENNOSIDES 8.6 MG (SENOKOT) TAB PO SCH (21:07)
[2023-01-02] MEDS: DOCUSATE SODIUM 100 MG CAPSULE PO SCH (21:07)
[2023-01-02] MEDS: GABAPENTIN 100 MG CAPSULE PO SCH (21:08)
[2023-01-03] MEDS: NS IV 1000 ML 1,000 ML IV SCH (00:30)
[2023-01-03] MEDS: ACETAMINOPHEN 325 MG TABLET PO PRN (03:29)
[2023-01-03 04:55] LABS: BASOPHILS % (AUTO) 0 % (0-10); EOSINOPHILS # (AUTO) 0.1 10^3/uL (0.0-0.3); EOSINOPHILS % (AUTO) 1 % (0-10); HEMATOCRIT 31 % (35-52); HEMOGLOBIN 9.9 g/dL (11.5-16.0); LYMPHOCYTES # (AUTO) 1.4 10^3/uL (1.0-4.0); LYMPHOCYTES % (AUTO) 16 % (12-44); MEAN CORPUSCULAR HEMOGLOBIN 31 pg (25-34); MEAN CORPUSCULAR HGB CONC 32 g/dL (32-36); MEAN CORPUSCULAR VOLUME 96 fL (80-99); MONOCYTES # (AUTO) 0.8 10^3/uL (0.0-1.0); MONOCYTES % (AUTO) 9 % (0-12); NEUTROPHILS # (AUTO) 6.4 10^3/uL (1.8-7.8); NEUTROPHILS % (AUTO) 74 % (42-75); PLATELET COUNT 264 10^3/uL (130-400); WHITE BLOOD COUNT 8.6 10^3/uL (4.3-11.0)
[2023-01-03 05:15] LABS: ALBUMIN 2.9 GM/DL (3.2-4.5); BILIRUBIN,TOTAL 0.3 MG/DL (0.1-1.0); CALCIUM 7.9 MG/DL (8.5-10.1); CREATININE SERUM 0.75 MG/DL (0.60-1.30); MAGNESIUM 1.7 MG/DL (1.6-2.4); PHOSPHORUS 3.2 MG/DL (2.3-4.7); POTASSIUM 4.1 MMOL/L (3.6-5.0); TOTAL PROTEIN 5.1 GM/DL (6.4-8.2)
[2023-01-03] MEDS: inSUlin ASPART 1 UNIT/0.01 ML (PER UNIT) SC SCH ×2 (05:18→11:10)
[2023-01-03] MEDS: MAGNESIUM 1 GM/100 ML IVPB 100 ML IV SCH ×4 (05:47→09:12)
[2023-01-03] MEDS ORDERED: POTASSIUM CL 10MEQ/50ML IVPB 50 ML IV SCH (06:00)
[2023-01-03] MEDS ORDERED: POTASSIUM CHLORIDE 20 MEQ TABLET PO SCH (06:00)
[2023-01-03] MEDS ORDERED: MAGNESIUM 1 GM/100 ML IVPB 100 ML IV SCH (06:00)
[2023-01-03] MEDS ORDERED: LEVOTHYROXINE 100 MCG (LEVOTHROID) TAB PO SCH (06:30)
--- NOTE | 2023-01-03 06:46 | Progress Note ---
Subjective Date Seen by a Provider: Jan 03, 2023 Time Seen by a Provider: 10:00 Objective Exam Last Set of Vital Signs Vital Signs Date Time Temp Pulse Resp B/P (MAP) Pulse Ox O2 Delivery O2 Flow Rate FiO2 01/03/23 06:00 72 113/63 (80) 96 Room Air 01/03/23 05:00 2.00 01/03/23 04:00 36.2 18 01/02/23 14:39 21 Capillary Refill : Less Than 3 Seconds I&O Intake and Output 01/03/23 00:00 Intake Total 3400 ml Output Total 400 ml Balance 3000 ml Intake Oral 1400 ml IV Total 2000 ml Output Urine Total 400 ml # Voids 2 Daily Weight Change No Results Lab Laboratory Tests 01/02/23 11:05: White Blood Count 11.0, Red Blood Count 3.90, Hemoglobin 12.2, Hematocrit 38, Mean Corpuscular Volume 97, Mean Corpuscular Hemoglobin 31, Mean Corpuscular Hemoglobin Concent 32, Red Cell Distribution Width 13.3, Platelet Count 287, Mean Platelet Volume 9.3, Immature Granulocyte % (Auto) 0, Neutrophils (%) ( Auto) 76H, Lymphocytes (%) (Auto) 16, Monocytes (%) (Auto) 6, Eosinophils (%) (Auto) 1, Basophils (%) (Auto) 0, Neutrophils # (Auto) 8.4H, Lymphocytes # (Auto) 1.8, Monocytes # (Auto) 0.7, Eosinophils # (Auto) 0.1, Basophils # (Auto) 0.0, Immature Granulocyte # (Auto) 0.0, Prothrombin Time 13.5, INR Comment 1.0, Activated Partial Thromboplast Time 25, D-Dimer 0.81H, Sodium Level 140, Potassium Level 3.9, Chloride Level 104, Carbon Dioxide Level 25, Anion Gap 11, Blood Urea Nitrogen 16, Creatinine 0.93, Estimat Glomerular Filtration Rate 65, BUN/Creatinine Ratio 17, Glucose Level 149H, Calcium Level 9.2, Corrected Calcium 9.4, Magnesium Level 2.0, Total Bilirubin 0.7, Aspartate Amino Transf (AST/SGOT) 15, Alanine Aminotransferase (ALT/SGPT) 13, Alkaline Phosphatase 83, Myoglobin 131.2H, Troponin I < 0.028, B-Type Natriuretic Peptide 114.7H, Total Protein 6.5, Albumin 3.8 01/02/23 13:12: Urine Color YELLOW, Urine Clarity CLEAR, Urine pH 6.0, Urine Specific [place] 1.005L, Urine Protein NEGATIVE, Urine Glucose (UA) NEGATIVE, Urine Ketones NEGATIVE, Urine Nitrite NEGATIVE, Urine Bilirubin NEGATIVE, Urine Urobilinogen 0.2, Urine Leukocyte Esterase NEGATIVE, Urine RBC (Auto) NEGATIVE, Urine RBC NONE, Urine WBC RARE, Urine Squamous Epithelial Cells RARE, Urine Crystals NONE, Urine Bacteria NEGATIVE, Urine Casts NONE, Urine Mucus NEGATIVE, Urine Culture Indicated NO 01/02/23 15:48: Glucometer 128H 01/02/23 21:02: Glucometer 148H 01/03/23 04:33: White Blood Count 8.6, Red Blood Count 3.20L, Hemoglobin 9.9L, Hematocrit 31L, Mean Corpuscular Volume 96, Mean Corpuscular Hemoglobin 31, Mean Corpuscular Hemoglobin Concent 32, Red Cell Distribution Width 13.6, Platelet Count 264, Mean Platelet Volume 10.0, Immature Granulocyte % (Auto) 0, Neutrophils (%) (Auto) 74, Lymphocytes (%) (Auto) 16, Monocytes (%) (Auto) 9, Eosinophils (%) (Auto) 1, Basophils (%) (Auto) 0, Neutrophils # (Auto) 6.4, Lymphocytes # (Auto) 1.4, Monocytes # (Auto) 0.8, Eosinophils # (Auto) 0.1, Basophils # (Auto) 0.0, Immature Granulocyte # (Auto) 0.0, Sodium Level 141, Potassium Level 4.1, Chloride Level 113H, Carbon Dioxide Level 20L, Anion Gap 8, Blood Urea Nitrogen 13, Creatinine 0.75, Estimat Glomerular Filtration Rate 84, BUN/Creatinine Ratio 17, Glucose Level 117H, Calcium Level 7.9L, Corrected Calcium 8.8, Phosphorus Level 3.2, Magnesium Level 1.7, Total Bilirubin 0.3, Aspartate Amino Transf (AST/SGOT) 15, Alanine Aminotransferase (ALT/SGPT) 12, Alkaline Phosphatase 77, Total Protein 5.1L, Albumin 2.9L, Triglycerides Level 65, Cholesterol Level 84, LDL Cholesterol Direct 33, VLDL Cholesterol 13, HDL Cholesterol 39L Diagnosis/Problems Diagnosis/Problems (1) Syncope (2) Hypotension Status: Acute (3) CAD (coronary artery disease) KEITH STOLL DO Jan 03, 2023 06:46
[2023-01-03] MEDS ORDERED: CYANOCOBALAMIN 1,000 MCG TABLET PO SCH (07:00)
--- NOTE | 2023-01-03 07:24 | Tele-ICU Progress Note ---
Subjective Date Seen by a Provider: Jan 03, 2023 Time Seen by a Provider: 07:19 Subjective/Events-last exam (Tele-ICU Physician , consultation as per request of PCP Service provided via interactive audio and video telecommunications E-CARE system to a patient admitted to ICU bed in [facility]. Available chart/ vitals / labs / Images reviewed H&P is from ER notes Patient's information available about PMH, Shx, Fhx allergy reviewed inEMR. ROS as per chart and RN report Now in ICU, hemodynamically stable Video assessment done using teleICU camera, rest of exam as per RN Discussed with RN. 72 yo F admitted for syncope, thought to be from dehydration, BP has been improving, now 113/63, BP meds on hole BP lying 130/66, BP sitting 136/79, standing 131/67 Hb dropped from 12.2 to 9,9, no active bleeding HCO3 went from 25 to 20 but no AG CTA did not show pulm emb, CT head did not show an acute process Sepsis Event Evaluation Height, Weight, BMI Height: 5'7.00" Weight: 214lbs. 7.0oz. 97.025309db; 37.46 BMI Method:Stated Exam Exam Patient acknowledged, consented, and participated in this virtual visit which was conducted using real time audio/video Vital Signs Date Time Temp Pulse Resp B/P (MAP) Pulse Ox O2 Delivery O2 Flow Rate FiO2 01/03/23 07:00 72 01/03/23 06:00 72 113/63 (80) 96 Room Air 01/03/23 05:00 68 97/49 (67) 97 Nasal Cannula 2.00 01/03/23 04:00 97 Room Air 01/03/23 04:00 36.2 65 18 110/52 (75) 98 Nasal Cannula 2.00 01/03/23 03:00 76 18 106/51 (76) 97 Nasal Cannula 2.00 01/03/23 02:00 72 92/43 (62) 99 Nasal Cannula 2.00 01/03/23 01:08 Nasal Cannula 2.00 01/03/23 01:00 87 01/03/23 00:00 36.4 75 107/48 (67) 95 Room Air 01/02/23 23:59 97 Room Air 01/02/23 23:00 68 13 91/40 (57) 93 Room Air 01/02/23 23:00 80 22 91/40 (59) 92 Room Air 01/02/23 22:00 80 44 96/45 (63) 93 Room Air 01/02/23 21:00 87 28 117/50 (91) 97 Room Air 01/02/23 20:07 99 Room Air 01/02/23 20:00 36.4 74 18 105/49 (69) 98 Room Air 01/02/23 19:42 97 Room Air 01/02/23 19:00 73 01/02/23 19:00 71 18 96/47 (65) 98 Room Air 01/02/23 18:00 75 108/60 (78) 100 Room Air 01/02/23 17:00 70 83/52 (70) 95 Room Air 01/02/23 16:12 36.3 01/02/23 16:00 80 108/56 (67) 96 Room Air 01/02/23 15:00 92 Room Air 01/02/23 15:00 80 19 121/90 (103) 93 Room Air 01/02/23 14:39 35.9 69 94 21 01/02/23 14:36 74 01/02/23 14:15 36.4 88 19 117/62 (80) 92 Room Air 01/02/23 14:10 35.9 70 18 107/48 93 01/02/23 11:06 35.9 69 18 122/58 (79) 94 I & O 01/03/23 07:00 Intake Total 5000 ml Output Total 1250 ml Balance 3750 ml Height & Weight Height: 5'7.00" Weight: 214lbs. 7.0oz. 97.150993iz; 37.46 BMI Method:Stated General Appearance: No Apparent Distress, WD/WN HEENT: PERRL/EOMI, TMs Normal, Normal ENT Inspection, Pharynx Normal Neck: Full Range of Motion, Normal Inspection, Non Tender Respiratory: Chest Non Tender, Lungs Clear, Normal Breath Sounds, No Accessory Muscle Use, No Respiratory Distress Cardiovascular: Regular Rate, Rhythm, No Edema, No Gallop, No JVD, No Murmur Capillary Refill: Less Than 3 Seconds Extremity: Normal Capillary Refill, Normal Inspection, Normal Range of Motion, Non Tender Neurologic/Psychiatric: Alert, Oriented x3, No Motor/Sensory Deficits, Normal 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
[2023-01-03 08:25] VITALS: BP 130/66
[2023-01-03 08:30] VITALS: BP 136/79
[2023-01-03 08:35] VITALS: BP 131/67
[2023-01-03] MEDS: RT-Ipratropium/Albuterol NEB 3 ML VIAL INH SCH (08:45)
[2023-01-03] MEDS: ACETAMINOPHEN 325 MG TABLET PO SCH (08:54)
[2023-01-03] MEDS: DOCUSATE SODIUM 100 MG CAPSULE PO SCH (08:54)
[2023-01-03] MEDS: GABAPENTIN 100 MG CAPSULE PO SCH (08:54)
[2023-01-03] MEDS ORDERED: LACTOBACILLUS ACIDOPHILUS (PROBIOTIC) CAPSULE PO SCH (09:00)
[2023-01-03] MEDS ORDERED: VITAMIN D3 25 MCG (1,000 UNITS) TABLET PO SCH (09:00)
[2023-01-03] MEDS ORDERED: ZINC AMINO ACID CHELATE PO SCH (09:00)
[2023-01-03] MEDS ORDERED: CALCIUM CARBONATE 600 MG TABLET PO SCH (09:00)
[2023-01-03] MEDS ORDERED: ASPIRIN enteric coated 81MG TABLET PO SCH (09:00)
[2023-01-03] MEDS ORDERED: NON-FORMULARY MEDICATION 1 EA EA (Ubidecarenone (Coq-10) 100 MG) PO SCH (09:00)
[2023-01-03] MEDS ORDERED: LOSARTAN 100 MG (COZAAR) TABLET PO SCH (09:00)
[2023-01-03] MEDS ORDERED: PANTOPRAZOLE 20 MG TABLET (PROTONIX) PO SCH (09:00)
[2023-01-03] MEDS: SENNOSIDES 8.6 MG (SENOKOT) TAB PO SCH (09:01)
--- NOTE | 2023-01-03 12:04 | Discharge Summary ---
Diagnosis/Chief Complaint Date of Admission Jan 02, 2023 at 14:01 Date of Discharge Discharge Date: Jan 03, 2023 Discharge Diagnosis Assessment: Orthostatic hypotension Dehydration Recent breast reduction surgery at Recent lumpectomy due to breast cancer CAD prev CABG OAC h/o CVA Hypothyroidism GERD HTN Plan: Home meds IVF ICU due to syncope and h/o CAD Doxy Discharge Summary Discharge Physical Examination Allergies: Coded Allergies: No Known Drug Allergies (Unverified , 05/01/14) Vitals & I&Os Vital Signs Date Time Temp Pulse Resp B/P (MAP) Pulse Ox O2 Delivery O2 Flow Rate FiO2 01/03/23 12:00 70 98 Room Air 01/03/23 11:29 36.2 01/03/23 09:00 21 01/03/23 05:00 2.00 01/02/23 14:39 21 General Appearance: Alert, Oriented X3, Cooperative Respiratory: Clear to Auscultation Cardiovascular: Regular Rate Psych/Mental Status: Mental Status NL Hospital Course Was the Problem List Reviewed?: Yes Uneventful course after she was admitted from ER after a syncopal episode at home in shower s/p breast reduction surgery at w/h/o recent dx of breast cancer s/p lumpectomy and CAD who required ICU admit due to hypotension from dehydration due to inability to tolerate intake for 24+ hours. SHe was monitored closely and Cardiology consulted with no evidence of any cardiac source of syncope. IVF maintained and home meds restarted and she had complete resolution of symptoms and was DC Labs (last 24 hrs) Laboratory Tests 01/02/23 11:05: White Blood Count 11.0, Red Blood Count 3.90, Hemoglobin 12.2, Hematocrit 38, Mean Corpuscular Volume 97, Mean Corpuscular Hemoglobin 31, Mean Corpuscular Hemoglobin Concent 32, Red Cell Distribution Width 13.3, Platelet Count 287, Mean Platelet Volume 9.3, Immature Granulocyte % (Auto) 0, Neutrophils (%) (Auto) 76H, Lymphocytes (%) (Auto) 16, Monocytes (%) (Auto) 6, Eosinophils (%) (Auto) 1, Basophils (%) (Auto) 0, Neutrophils # (Auto) 8.4H, Lymphocytes # (Auto) 1.8, Monocytes # (Auto) 0.7, Eosinophils # (Auto) 0.1, Basophils # (Auto) 0.0, Immature Granulocyte # (Auto) 0.0, Prothrombin Time 13.5, INR Comment 1.0, Activated Partial Thromboplast Time 25, D-Dimer 0.81H, Sodium Level 140, Potassium Level 3.9, Chloride Level 104, Carbon Dioxide Level 25, Anion Gap 11, Blood Urea Nitrogen 16, Creatinine 0.93, Estimat Glomerular Filtration Rate 65, BUN/Creatinine Ratio 17, Glucose Level 149H, Calcium Level 9.2, Corrected Calcium 9.4, Magnesium Level 2.0, Total Bilirubin 0.7, Aspartate Amino Transf (AST/SGOT) 15, Alanine Aminotransferase (ALT/SGPT) 13, Alkaline Phosphatase 83, Myoglobin 131.2H, Troponin I < 0.028, B-Type Natriuretic Peptide 114.7H, Total Protein 6.5, Albumin 3.8 01/02/23 13:12: Urine Color YELLOW, Urine Clarity CLEAR, Urine pH 6.0, Urine Specific [place] 1.005L, Urine Protein NEGATIVE, Urine Glucose (UA) NEGATIVE, Urine Ketones NEGATIVE, Urine Nitrite NEGATIVE, Urine Bilirubin NEGATIVE, Urine Urobilinogen 0.2, Urine Leukocyte Esterase NEGATIVE, Urine RBC (Auto) NEGATIVE, Urine RBC NONE, Urine WBC RARE, Urine Squamous Epithelial Cells RARE, Urine Crystals NONE, Urine Bacteria NEGATIVE, Urine Casts NONE, Urine Mucus NEGATIVE, Urine Culture Indicated NO 01/02/23 15:48: Glucometer 128H 01/02/23 21:02: Glucometer 148H 01/03/23 04:33: White Blood Count 8.6, Red Blood Count 3.20L, Hemoglobin 9.9L, Hematocrit 31L, Mean Corpuscular Volume 96, Mean Corpuscular Hemoglobin 31, Mean Corpuscular Hemoglobin Concent 32, Red Cell Distribution Width 13.6, Platelet Count 264, Mean Platelet Volume 10.0, Immature Granulocyte % (Auto) 0, Neutrophils (%) (Auto) 74, Lymphocytes (%) (Auto) 16, Monocytes (%) (Auto) 9, Eosinophils (%) (Auto) 1, Basophils (%) (Auto) 0, Neutrophils # (Auto) 6.4, Lymphocytes # (Auto) 1.4, Monocytes # (Auto) 0.8, Eosinophils # (Auto) 0.1, Basophils # (Auto) 0.0, Immature Granulocyte # (Auto) 0.0, Sodium Level 141, Potassium Level 4.1, Chloride Level 113H, Carbon Dioxide Level 20L, Anion Gap 8, Blood Urea Nitrogen 13, Creatinine 0.75, Estimat Glomerular Filtration Rate 84, BUN/Creatinine Ratio 17, Glucose Level 117H, Calcium Level 7.9L, Corrected Calcium 8.8, Phosphorus Level 3.2, Magnesium Level 1.7, Total Bilirubin 0.3, Aspartate Amino Transf (AST/SGOT) 15, Alanine Aminotransferase (ALT/SGPT) 12, Alkaline Phosphatase 77, Total Protein 5.1L, Albumin 2.9L, Triglycerides Level 65, Cholesterol Level 84, LDL Cholesterol Direct 33, VLDL Cholesterol 13, HDL Cholesterol 39L 01/03/23 10:32: Glucometer 124H Microbiology 01/02/23 MRSA Screen - Final, Complete MRSA not isolated Pending Labs Microbiology Date/Time Source Procedure Growth Status 01/02/23 14:20 Nasal MRSA Screen - Final MRSA not isolated Complete Laboratory Tests 01/02/23 11:05: White Blood Count 11.0, Red Blood Count 3.90, Hemoglobin 12.2, Hematocrit 38, Mean Corpuscular Volume 97, Mean Corpuscular Hemoglobin 31, Mean Corpuscular Hemoglobin Concent 32, Red Cell Distribution Width 13.3, Platelet Count 287, Mean Platelet Volume 9.3, Immature Granulocyte % (Auto) 0, Neutrophils (%) (Auto) 76, Lymphocytes (%) (Auto) 16, Monocytes (%) (Auto) 6, Eosinophils (%) (Auto) 1, Basophils (%) (Auto) 0, Neutrophils # (Auto) 8.4, Lymphocytes # (Auto) 1.8, Monocytes # (Auto) 0.7, Eosinophils # (Auto) 0.1, Basophils # (Auto) 0.0, Immature Granulocyte # (Auto) 0.0, Prothrombin Time 13.5, INR Comment 1.0, Activated Partial Thromboplast Time 25, D-Dimer 0.81, Sodium Level 140, Potassium Level 3.9, Chloride Level 104, Carbon Dioxide Level 25, Anion Gap 11, Blood Urea Nitrogen 16, Creatinine 0.93, Estimat Glomerular Filtration Rate 65, BUN/Creatinine Ratio 17, Glucose Level 149, Calcium Level 9.2, Corrected Calcium 9.4, Magnesium Level 2.0, Total Bilirubin 0.7, Aspartate Amino Transf (AST/SGOT) 15, Alanine Aminotransferase (ALT/SGPT) 13, Alkaline Phosphatase 83, Myoglobin 131.2, Troponin I < 0.028, B-Type Natriuretic Peptide 114.7, Total Protein 6.5, Albumin 3.8 01/02/23 13:12: Urine Color YELLOW, Urine Clarity CLEAR, Urine pH 6.0, Urine Specific [place] 1.005, Urine Protein NEGATIVE, Urine Glucose (UA) NEGATIVE, Urine Ketones NEGATIVE, Urine Nitrite NEGATIVE, Urine Bilirubin NEGATIVE, Urine Urobilinogen 0.2, Urine Leukocyte Esterase NEGATIVE, Urine RBC (Auto) NEGATIVE, Urine RBC NONE, Urine WBC RARE, Urine Squamous Epithelial Cells RARE, Urine Crystals NONE, Urine Bacteria NEGATIVE, Urine Casts NONE, Urine Mucus NEGATIVE, Urine Culture Indicated NO 01/02/23 15:48: Glucometer 128 01/02/23 21:02: Glucometer 148 01/03/23 04:33: White Blood Count 8.6, Red Blood Count 3.20, Hemoglobin 9.9, Hematocrit 31, Mean Corpuscular Volume 96, Mean Corpuscular Hemoglobin 31, Mean Corpuscular Hemoglobin Concent 32, Red Cell Distribution Width 13.6, Platelet Count 264, Mean Platelet Volume 10.0, Immature Granulocyte % (Auto) 0, Neutrophils (%) (Auto) 74, Lymphocytes (%) (Auto) 16, Monocytes (%) (Auto) 9, Eosinophils (%) (Auto) 1, Basophils (%) (Auto) 0, Neutrophils # (Auto) 6.4, Lymphocytes # (Auto) 1.4, Monocytes # (Auto) 0.8, Eosinophils # (Auto) 0.1, Basophils # (Auto) 0.0, Immature Granulocyte # (Auto) 0.0, Sodium Level 141, Potassium Level 4.1, Chloride Level 113, Carbon Dioxide Level 20, Anion Gap 8, Blood Urea Nitrogen 13, Creatinine 0.75, Estimat Glomerular Filtration Rate 84, BUN/Creatinine Ratio 17, Glucose Level 117, Calcium Level 7.9, Corrected Calcium 8.8, Phosphorus L evel 3.2, Magnesium Level 1.7, Total Bilirubin 0.3, Aspartate Amino Transf (AST/SGOT) 15, Alanine Aminotransferase (ALT/SGPT) 12, Alkaline Phosphatase 77, Total Protein 5.1, Albumin 2.9, Triglycerides Level 65, Cholesterol Level 84, LDL Cholesterol Direct 33, VLDL Cholesterol 13, HDL Cholesterol 39 01/03/23 10:32: Glucometer 124 Discharge Home Medications: Active Scripts Active Reported Doxycycline Hyclate 100 Mg Capsule 100 Mg PO BID Tylenol (Acetaminophen) 325 Mg Tablet 650 Mg PO Q6H 3 Days TAKES EVERY 6 HOURS FOR 3 DAYS POST SURGERY AT . NEXT DOSE 1500 Vitamin B12 (Cyanocobalamin (Vitamin B-12)) 5,000 Mcg Tab.rapdis 5,000 Mcg PO DAILY Zinc (Zinc Amino Acid Chelate) 50 Mg Tablet 100 Mg PO DAILY Acidophilus Probiotic (Lactobacillus Acidophilus) 1 Each Capsule 3 Each PO DAILY Vitamin D3 (Cholecalciferol (Vitamin D3)) 25 Mcg Tablet 50 Mcg PO DAILY Calcium (Calcium Carbonate) 600 Mg Tablet 600 Mg PO DAILY Coq-10 (Ubidecarenone) 100 Mg Capsule 100 Mg PO DAILY Metoprolol Succinate 25 Mg Tab.er.24h 37.5 Mg PO BID TAKING 1 AND 1/2 OF 25MG TAB Omeprazole 20 Mg Tablet.dr 20 Mg PO DAILY Xarelto (Rivaroxaban) 20 Mg Tablet 20 Mg PO HS Irbesartan 300 Mg Tablet 300 Mg PO DAILY Gabapentin 100 Mg Capsule 100 Mg PO TID Rosuvastatin Calcium 20 Mg Tablet 20 Mg PO MON,WED,FRI Levothyroxine Sodium 100 Mcg Tablet 100 Mcg PO DAILY Aspirin EC (Aspirin) 81 Mg Tablet.dr 81 Mg PO DAILY Instructions to patient/family Please see electronic discharge instructions given to patient. Diagnosis/Problems Diagnosis/Problems (1) Syncope (2) Hypotension Status: Acute (3) CAD (coronary artery disease) KEITH STOLL DO Jan 03, 2023 12:04
--- NOTE | 2023-01-03 14:19 | Consultation-Cardiology ---
HPI-Cardiology Cardiology Consultation: Date of Consultation 01/03/23 Time Seen by a Provider: 12:15 Date of Admission Attending Physician Valentina Fulton MD Admitting Physician Admitting Physician: Phoebe Leary DO Attending Physician: Phoebe Leary DO Consulting Physician LUIZ WOLFE MD, MA, FACP, FACC, FSCAI, CCDS Physician requesting consult: Dr Leary HPI: Chief Complaint: Reason for Card consult: H/o CAD 72 yo woman how had brief syncope after getting out of shower on 01/02/23. Sat down and then passed out for a few seconds, according to her . Denies cp or palp. Had had R breast surgery 2 days earlier and had been NPO for a whole day prior to that. After surgery had had nausea and vomiting. Oral intake had thus been poor leading up to the event on 01/02/23. Was diagnosed with dehydration and has been treated with iv fluids and is currently feeling much better. Feels she is back to normal and wishes to go home Review of Systems-Cardiology Review of Systems Constitutional: As described under HPI Eyes: No photophobia, No vision change Ears/Nose/Throat: No ear discharge, No nasal drainage, No recent hearing loss Respiratory: As described under HPI Cardiovascular: As described under HPI Gastrointestinal: As described under HPI Genitourinary: No dysuria, No hematuria, No urine frequency changes Musculoskeletal: No back pain, No joint pain Skin: No rash, No ulcerations Psychiatric/Neurological: No seizure, No focal weakness, No syncope Hematologic: No bleeding abnormalities All Other Systems Reviewed Negative Unless Noted: Yes [id number] Hx Patient Social History Marrital Status: Employed/Student: retired Smoking Status: Never a Smoker 2nd Hand Smoke Exposure: Yes Alcohol Use?: No Pt feels they are or have been: No Immunizations Up To Date Tetanus Booster (TDap): More than 5yrs Date of Pneumonia Vaccine: May 03, 2014 Date of Influenza Vaccine: Mar 25, 2016 Past Medical History PMH As described under Assessment. Family Medical History Family History: Cardiovascular disease 19 FATHER, Onset:Unknown Completed stroke 19 FATHER, Onset:60 years & older Diabetes mellitus 19 FATHER, Onset:50's - 60 Hypertension 19 FATHER, Onset:Unknown Kidney disease G8 BROTHER, Onset: No Family History of: AIDS Abdominal aortic aneurysm [place]'s disease Alcoholism Alzheimer's disease Aphasia Arthritis Asthma Cancer of mouth Cataracts Colon cancer Congenital disease Congenital heart disease Coronary thrombosis Cystic fibrosis Deafness or hearing loss Dementia Drug abuse Dysphasia Fibrocystic disease of breast Gastroenteritis Glaucoma Headache disorder Hypercholesterolemia Infertility Myocardial infarction Neoplasm Not obtainable due to adoption Osteoporosis Parkinson's disease Prostate cancer Psychosocial problem Respiratory disorder Seizure disorder Severe allergy Thyroid disease Tuberculosis Visual disorder Allergies and Home Medications Allergies Coded Allergies: No Known Drug Allergies (Unverified , 05/01/14) Patient Home Medication List Home Medication List Reviewed: Yes Acetaminophen (Tylenol) 325 Mg Tablet, 650 MG PO Q6H, (Reported) Entered as Reported by: FRED CASTELLANOS on 01/02/23 1432 Last Action: New Order Aspirin (Aspirin EC) 81 Mg Tablet.dr, 81 MG PO DAILY, (Reported) Entered as Reported by: JERMAIN JUAREZ on 05/29/16 0900 Last Action: Continued Calcium Carbonate (Calcium) 600 Mg Tablet, 600 MG PO DAILY, (Reported) Entered as Reported by: ANA CHRISTIE on 04/23/21 1032 Last Action: Continued Cholecalciferol (Vitamin D3) (Vitamin D3) 25 Mcg Tablet, 50 MCG PO DAILY, (Reported) Entered as Reported by: ANA CHRISTIE on 04/23/21 103 Last Action: Continued Cyanocobalamin (Vitamin B-12) (Vitamin B12) 5,000 Mcg Tab.rapdis, 5,000 MCG PO DAILY, (Reported) Entered as Reported by: ANA CHRISTIE on 04/23/21 1032 Last Action: Converted Doxycycline Hyclate (Doxycycline Hyclate) 100 Mg Capsule, 100 MG PO BID, (Reported) Entered as Reported by: FRED CASTELLANOS on 01/02/23 1517 Last Action: New Order Gabapentin (Gabapentin) 100 Mg Capsule, 100 MG PO TID, (Reported) Entered as Reported by: RONNI FUENTES on 02/07/21 1206 Last Action: Continued Irbesartan (Irbesartan) 300 Mg Tablet, 300 MG PO DAILY, (Reported) Entered as Reported by: RONNI FUENTES on 02/07/21 1206 Last Action: Converted Lactobacillus Acidophilus (Acidophilus Probiotic) 1 Each Capsule, 3 EACH PO DAILY, (Reported) Entered as Reported by: ANA CHRISTIE on 04/23/21 103 Last Action: Converted Levothyroxine Sodium (Levothyroxine Sodium) 100 Mcg Tablet, 100 MCG PO DAILY, (Reported) Entered as Reported by: RED TORRES on 03/05/18 1014 Last Action: Continued Metoprolol Succinate (Metoprolol Succinate) 25 Mg Tab.er.24h, 37.5 MG PO BID, (Reported) Entered as Reported by: RONNI FUENTES on 02/07/21 1213 Last Action: Continued Omeprazole (Omeprazole) 20 Mg Tablet.dr, 20 MG PO DAILY, (Reported) Entered as Reported by: RONNI FUENTES on 02/07/21 1206 Last Action: Converted Rivaroxaban (Xarelto) 20 Mg Tablet, 20 MG PO HS, (Reported) Entered as Reported by: RONNI FUENTES on 02/07/21 120 Last Action: Held Rosuvastatin Calcium (Rosuvastatin Calcium) 20 Mg Tablet, 20 MG PO MON,WED,FRI, (Reported) Entered as Reported by: RED TORRES on 03/05/18 1019 Last Action: Continued Ubidecarenone (Coq-10) 100 Mg Capsule, 100 MG PO DAILY, (Reported) Entered as Reported by: ANA CHRISTIE on 04/23/21 1032 Last Action: Converted Zinc Amino Acid Chelate (Zinc) 50 Mg Tablet, 100 MG PO DAILY, (Reported) Entered as Reported by: ANA CHRISTIE on 04/23/21 1032 Last Action: Converted Discontinued Medications Fluticasone/Salmeterol (Fluticasone-Salmeterol 113-14) 1 Each Aer.pow.ba, 1 PUFF INH BID, (Reported) Discontinued Reason: No Longer Taking Entered as Reported by: RONNI FUENTES on 02/07/21 1206 Last Action: Discontinued Physical Exam-Cardiology Physical Exam Vital Signs/I&O 01/03/23 01/03/23 01/03/23 01/03/23 03:00 04:00 04:00 05:00 Temp 36.2 Pulse 76 65 68 Resp 18 18 B/P (MAP) 106/51 (76) 110/52 (75) 97/49 (67) Pulse Ox 97 98 97 97 O2 Delivery Nasal Cannula Nasal Cannula Room Air Nasal Cannula O2 Flow Rate 2.00 2.00 2.00 01/03/23 01/03/23 01/03/23 01/03/23 06:00 07:00 07:00 07:39 Temp 36.0 Pulse 72 71 72 Resp 28 B/P (MAP) 113/63 (80) 116/63 (71) Pulse Ox 96 92 O2 Delivery Room Air Room Air Room Air 01/03/23 01/03/23 01/03/23 01/03/23 08:00 08:00 09:00 10:00 Pulse 74 79 66 Resp 11 21 B/P (MAP) 147/69 (97) 100/44 (62) 111/54 (96) Pulse Ox 95 98 95 98 O2 Delivery Room Air Room Air Room Air Room Air 01/03/23 01/03/23 01/03/23 11:00 11:29 12:00 Temp 36.2 Pulse 66 70 B/P (MAP) 115/48 (72) Pulse Ox 96 98 O2 Delivery Room Air Room Air Room Air 01/03/23 00:00 Intake Total 3400 ml Output Total 400 ml Balance 3000 ml Capillary Refill : Less Than 3 Seconds Constitutional: AAO x 3, well-developed, well-nourished HEENT: PERRL, EOMI; No xanthelasmas are seen Neck: carotid pulses are 2 + bilaterally, with good upstrokes Respiratory: No accessory muscle use; other (good, bilateral air entry) Cardiovascular: regular rate-rhythm, S1 and S2, systolic murmur (soft SHEMAR at card base) Gastrointestinal: No tender; soft; No guarding, No rebound; audible bowel sounds Extremities: No clubbing, No cyanosis, No significant edema Neurologic/Psychiatric: oriented x 3, other (moves all limbs equally) Skin: No rash on exposed areas, No ulcerations on exposed areas Data Review Labs Laboratory Tests 01/02/23 15:48: Glucometer 128H 01/02/23 21:02: Glucometer 148H 01/03/23 04:33: White Blood Count 8.6, Red Blood Count 3.20L, Hemoglobin 9.9L, Hematocrit 31L, Mean Corpuscular Volume 96, Mean Corpuscular Hemoglobin 31, Mean Corpuscular Hemoglobin Concent 32, Red Cell Distribution Width 13.6, Platelet Count 264, Mean Platelet Volume 10.0, Immature Granulocyte % (Auto) 0, Neutrophils (%) (Auto) 74, Lymphocytes (%) (Auto) 16, Monocytes (%) (Auto) 9, Eosinophils (%) (Auto) 1, Basophils (%) (Auto) 0, Neutrophils # (Auto) 6.4, Lymphocytes # (Auto) 1.4, Monocytes # (Auto) 0.8, Eosinophils # (Auto) 0.1, Basophils # (Auto) 0.0, Immature Granulocyte # (Auto) 0.0, Sodium Level 141, Potassium Level 4.1, Chloride Level 113H, Carbon Dioxide Level 20L, Anion Gap 8, Blood Urea Nitrogen 13, Creatinine 0.75, Estimat Glomerular Filtration Rate 84, BUN/Creatinine Ratio 17, Glucose Level 117H, Calcium Level 7.9L, Corrected Calcium 8.8, Phosphorus Level 3.2, Magnesium Level 1.7, Total Bilirubin 0.3, Aspartate Amino Transf (AST/SGOT) 15, Alanine Aminotransferase (ALT/SGPT) 12, Alkaline Phosphatase 77, Total Protein 5.1L, Albumin 2.9L, Triglycerides Level 65, Cholesterol Level 84, LDL Cholesterol Direct 33, VLDL Cholesterol 13, HDL Cholesterol 39L 01/03/23 10:32: Glucometer 124H Microbiology 01/02/23 MRSA Screen - Final, Complete MRSA not isolated Laboratory Tests 01/02/23 11:05 01/03/23 04:33 A/P-Cardiology Assessment/Admission Diagnosis Brief syncope in the setting of dehydration (perioperative volume loss) - symptoms resolved with hydration Carotid arterial dz: - H/O right carotid endarterectomy at [facility] in [address] Robert - Followed by [facility] CAD: - CABG with ARRIAZA to the LAD on 07/08/2016 at [facility] with Dr. Robert - Cardiac cath of 04-23-21 showed Mid vessel occlusion of the left anterior descending, treated by left internal mammary artery graft to the distal left anterior descending. The graft is small, but patent. The left circumflex artery is diminutive. A ramus intermedius artery has 50% proximal and mid vessel stenoses. Right coronary artery is dominant and has mild plaques. Elevated left ventricular end-diastolic pressure (16 mmHg). Localized apical dyskinesis. Left ventricular ejection fraction of 50 to 55%. - Echocardiogram of 05-03-21 showed LVEF 55-60%. Mild concentric hypertrophy H/o right upper extremity DVT in 2017 following CABG - treated with 6 months of Eliquis COPD - managed by PCP HTN - controlled HLD - statin tx - managed by PCP DM II - diet-controlled Obesity - Elevated BMI or approx 37.5 PAD: - 12/03/2016 diagnostic aortogram and bilateral runoff was done. It showed modera te to severe stenosis of the proximal SFA. Left lower extremity showed subtotal occlusion of the distal left external iliac artery with complete occlusion of the SFA with reconstitution of the popliteal artery with 2 vessel runoff, posterior tibial and anterior tibial. The external iliac artery in the left lower extremity was treated with a drug-eluting balloon followed by stenting with a 6X 60 mm Viabahn stent. however they could not cross the completely occluded lesion in the left SFA - On 12/05/2016 R left femoral popliteal bypass graft was done. - 07/2017: Repeat peripheral intervention to the left lower extremity done at [facility]. Details not available. Patient was started on Xarelto and has been on since (pt reports clotting within the graft) - Followed by [facility] [place] - followed and treated by Dr Colón H/o tobaccoism - Quit smoking in 2015 Discussion and Recomendations * We recommend continuation of previous cardiac regimen * Continuing outpt cardiac f/u advised LUIZ WOLFE MD [facility] CCDS Jan 03, 2023 14:19
[2023-01-05] MEDS ORDERED: ROSUVASTATIN 20 MG (CRESTOR) TABLET PO SCH (09:00)
== END 2023-01-03 12:02 | disposition home or self-care (01) ==
LOC: EDUNIT# 10:56 → ER 10:58 → ICU 14:01 → UNDOADMOB 14:01 → ICU 14:14 → UNDODISOB 01-03 12:02
PROVIDERS: ADMIT Internal Medicine; ATTEND Internal Medicine
DX: I95.1 Orthostatic hypotension (principal); E86.0 Dehydration; I25.10 Atherosclerotic heart disease of native coronary artery without angina pectoris; E03.9 Hypothyroidism, unspecified; K21.9 Gastro-esophageal reflux disease without esophagitis; I10 Essential (primary) hypertension; I73.9 Peripheral vascular disease, unspecified; I65.21 Occlusion and stenosis of right carotid artery; E66.9 Obesity, unspecified; E78.5 Hyperlipidemia, unspecified; E11.9 Type 2 diabetes mellitus without complications; G47.33 Obstructive sleep apnea (adult) (pediatric); J44.9 Chronic obstructive pulmonary disease, unspecified; Z68.37 Body mass index [BMI] 37.0-37.9, adult; Z95.5 Presence of coronary angioplasty implant and graft; Z98.890 Other specified postprocedural states; Z90.10 Acquired absence of unspecified breast and nipple; Z79.01 Long term (current) use of anticoagulants; Z86.73 Personal history of transient ischemic attack (TIA), and cerebral infarction without residual deficits; Z87.891 Personal history of nicotine dependence; Z28.310 Unvaccinated for COVID-19
CPT/HCPCS: 70450; 71045; 71275; 80053 ×2; 80061; 81000; 82947 ×2; 83735 ×2; 83874; 83880; 84100; 84484; 85025 ×2; 85379; 85610; 85730; 87081; 93005; 93041; 94640; 94760; 96360; 96361; 96366; 96376; 99284; G0378; 36415